=== PATIENT | male | born 1930 | race Caucasian/White ===

== ENCOUNTER 2018-01-22 16:46 | Inpatient (IN) | payer OTHER, MEDICARE ==
[2018-01-22] MEDS ORDERED: ACETAMINOPHEN TAB 325 MG TAB PO STA (16:53)
[2018-01-22] MEDS ORDERED: SODIUM CHLORIDE 0.9% 500 ML IV ONE ×2 (16:54→18:10)
--- NOTE | 2018-01-22 17:01 | ED ---
General Adult HPI - General Chief complaint: Weakness Stated complaint: NUMBNESS IN LEGS Time Seen by Provider: 01/22/18 16:59 Source: patient, family, RN notes reviewed, old records reviewed Mode of arrival: wheelchair Limitations: no limitations - History of Present Illness Initial comments: 87-year-old male presents for evaluation of generalized weakness. Patient states that throughout the day today he has become progressively more weak, states that he's had trouble falling onto his walker and weakness in both legs. Patient does report yesterday evening he had a cough and some mild dyspnea. This seems improved today. Denies chest pain. Denies abdominal pain. Denies nausea vomiting or diarrhea. Patient denies dysuria. He is found to have fever in triage and he complains of some subjective chills. - Related Data Home Medications Medication Instructions Recorded Confirmed Glipizide(Unknown) 2 tab PO BID 01/22/18 01/22/18 Insulin Aspart [Novolog Flexpen] See Protocol SQ ACHS 01/22/18 01/22/18 Insulin Glargine,Hum.rec.anlog 25 unit SQ HS 01/22/18 01/22/18 [Lantus Solostar] Latanoprost [Xalatan 0.005%] 1 drop BOTH EYES HS 01/22/18 01/22/18 Lutein 20 mg PO DAILY 01/22/18 01/22/18 Multivitamins, Thera [Multivitamin 1 tab PO DAILY 01/22/18 01/22/18 (formulary)] Ubidecarenone [Co Q-10] 100 mg PO DAILY 01/22/18 01/22/18 amLODIPine [Norvasc] 5 mg PO DAILY 01/22/18 01/22/18 Allergies Allergy/AdvReac Type Severity Reaction Status Date / Time No Known Allergies Allergy Verified 01/22/18 17:05 Review of Systems ROS Statement: Those systems with pertinent positive or pertinent negative responses have been documented in the HPI. ROS Other: All systems not noted in ROS Statement are negative. Past Medical History Past Medical History: Diabetes Mellitus, Hyperlipidemia, Hypertension History of Any Multi-Drug Resistant Organisms: None Reported Past Surgical History: Orthopedic Surgery Past Psychological History: No Psychological Hx Reported Smoking Status: Former smoker Past Alcohol Use History: Occasional Past Drug Use History: Unable to Obtain General Exam Limitations: no limitations General appearance: alert, in no apparent distress Head exam: Present: atraumatic, normocephalic Eye exam: Present: normal appearance, PERRL ENT exam: Present: mucous membranes dry Neck exam: Present: normal inspection. Absent: tenderness, meningismus Respiratory exam: Present: normal lung sounds bilaterally. Absent: respiratory distress, wheezes Cardiovascular Exam: Present: regular rate, normal rhythm GI/Abdominal exam: Present: soft. Absent: distended, tenderness, guarding Extremities exam: Present: normal inspection, normal capillary refill. Absent: pedal edema Neurological exam: Present: alert, oriented X3, CN II-XII intact, normal gait. Absent: motor sensory deficit Psychiatric exam: Present: normal affect, normal mood Skin exam: Present: warm, dry, intact. Absent: cyanosis, diaphoretic Course Vital Signs 01/22/18 01/22/18 01/22/18 16:49 17:00 17:18 Temperature 101.2 F H 100.0 F H Pulse Rate 103 H 108 H 103 H Respiratory 20 18 18 Rate Blood Pressure 96/54 106/55 96/55 O2 Sat by Pulse 95 93 L 93 L Oximetry 01/22/18 01/22/18 17:30 18:00 Temperature 99 F Pulse Rate 106 H 101 H Respiratory 16 18 Rate Blood Pressure 99/57 101/59 O2 Sat by Pulse 92 L 93 L Oximetry - Reevaluation(s) Reevaluation #1: 01/22/18 17:05 Case is discussed with Dr. Walsh , regarding EKG changes EKG Findings - EKG Comments: EKG Findings:: EKG: Obtained at 1702 shows sinus tachycardia, incomplete left bundle branch block, this is interpreted as acute NM, there is ST segment depression, however I do not feel this is an acute NM at this time. Rate of 111 , NE interval 184, QRS duration 116, QTC 485. Repeat EKG obtained at 1821, normal sinus rhythm, ST segment depression in V5 and V6, rate of 100, NE interval 204, QRS duration 114, QTC 492 Medical Decision Making - Medical Decision Making 87-year-old presenting for evaluation generalized weakness. Patient does report some dyspnea yesterday with mild cough. In triage patient has elevated heart rate and marginal blood pressure. Exam reveals normal strength throughout. Patient has significant EKG changes which are new compared to old. He denies any chest pain today or within the past week. He has no known history of CAD. Presentation is more consistent with infectious process. Chest x-rays obtained, does show patchy opacities consistent with an atypical pneumonia. White blood cell count is elevated at 16, hemoglobin 12.5, creatinine 2.0 with no known baseline. There is lactic acidosis of 4.5. Bilirubin is mildly elevated although patient has had his gallbladder removed remotely. Troponin significantly elevated at 3.3. Urinalysis is positive for leukocyte esterase and 38 white blood cell. Cultures of both the blood in the urine are pending. Patient is started on antibiotics to cover community acquired pneumonia. He is also given normal saline bolus in the emergency department. He started on heparin for EKG changes and elevated troponin after discussion with cardiology. He will be admitted to the ICU, Dr. Silva will accept this admission. Case is discussed with Dr. Cruz will accept admission. - Lab Data Result diagrams: 01/22/18 17:10 01/22/18 17:10 Lab Results 01/22/18 01/22/18 01/22/18 Range/Units 17:10 17:10 17:10 WBC 15.8 H (3.8-10.6) k/uL RBC 3.93 L (4.30-5.90) m/uL Hgb 12.5 L (13.0-17.5) gm/dL Hct 38.1 L (39.0-53.0) % MCV 96.8 (80.0-100.0) fL MCH 31.7 (25.0-35.0) pg MCHC 32.8 (31.0-37.0) g/dL RDW 12.7 (11.5-15.5) % Plt Count 176 (150-450) k/uL Neutrophils % 92 % Lymphocytes % 1 % Monocytes % 6 % Eosinophils % 1 % Basophils % 0 % Neutrophils # 14.5 H (1.3-7.7) k/uL Lymphocytes # 0.2 L (1.0-4.8) k/uL Monocytes # 0.9 (0-1.0) k/uL Eosinophils # 0.1 (0-0.7) k/uL Basophils # 0.0 (0-0.2) k/uL PT (9.0-12.0) sec INR (<1.2) APTT (22.0-30.0) sec Sodium 133 L (137-145) mmol/L Potassium 4.6 (3.5-5.1) mmol/L Chloride 102 (98-107) mmol/L Carbon Dioxide 16 L (22-30) mmol/L Anion Gap 15 mmol/L BUN 32 H (9-20) mg/dL Creatinine 2.00 H (0.66-1.25) mg/dL Est GFR (CKD-EPI)AfAm 34 (>60 ml/min/1.73 sqM) Est GFR (CKD-EPI)NonAf 29 (>60 ml/min/1.73 sqM) Glucose 331 H (74-99) mg/dL Plasma Lactic Acid [place] (0.7-2.0) mmol/L Calcium 9.4 (8.4-10.2) mg/dL Total Bilirubin 2.5 H (0.2-1.3) mg/dL AST 69 H (17-59) U/L ALT 69 (21-72) U/L Alkaline Phosphatase 75 (38-126) U/L Total Creatine Kinase 397 H (55-170) U/L CK-MB (CK-2) 12.0 H* (0.0-2.4) ng/mL CK-MB (CK-2) Rel Index 3.0 Troponin I 3.300 H* (0.000-0.034) ng/mL Total Protein 7.0 (6.3-8.2) g/dL Albumin 3.7 (3.5-5.0) g/dL Urine Color Urine Appearance (Clear) Urine pH (5.0-8.0) Ur Specific [place] (1.001-1.035) Urine Protein (Negative) Urine Glucose (UA) (Negative) Urine Ketones (Negative) Urine Blood (Negative) Urine Nitrite (Negative) Urine Bilirubin (Negative) Urine Urobilinogen (<2.0) mg/dL Ur Leukocyte Esterase (Negative) Urine RBC (0-5) /hpf Urine WBC (0-5) /hpf Ur Squamous Epith Cells (0-4) /hpf Urine Bacteria (None) /hpf Hyaline Casts (0-2) /lpf Urine Mucus (None) /hpf 01/22/18 01/22/18 01/22/18 Range/Units 17:10 17:10 18:00 WBC (3.8-10.6) k/uL RBC (4.30-5.90) m/uL Hgb (13.0-17.5) gm/dL Hct (39.0-53.0) % MCV (80.0-100.0) fL MCH (25.0-35.0) pg MCHC (31.0-37.0) g/dL RDW (11.5-15.5) % Plt Count (150-450) k/uL Neutrophils % % Lymphocytes % % Monocytes % % Eosinophils % % Basophils % % Neutrophils # (1.3-7.7) k/uL Lymphocytes # (1.0-4.8) k/uL Monocytes # (0-1.0) k/uL Eosinophils # (0-0.7) k/uL Basophils # (0-0.2) k/uL PT 11.0 (9.0-12.0) sec INR 1.1 (<1.2) APTT 24.6 (22.0-30.0) sec Sodium (137-145) mmol/L Potassium (3.5-5.1) mmol/L Chloride (98-107) mmol/L Carbon Dioxide (22-30) mmol/L Anion Gap mmol/L BUN (9-20) mg/dL Creatinine (0.66-1.25) mg/dL Est GFR (CKD-EPI)AfAm (>60 ml/min/1.73 sqM) Est GFR (CKD-EPI)NonAf (>60 ml/min/1.73 sqM) Glucose (74-99) mg/dL Plasma Lactic Acid [place] 4.5 H* (0.7-2.0) mmol/L Calcium (8.4-10.2) mg/dL Total Bilirubin (0.2-1.3) mg/dL AST (17-59) U/L ALT (21-72) U/L Alkaline Phosphatase (38-126) U/L Total Creatine Kinase (55-170) U/L CK-MB (CK-2) (0.0-2.4) ng/mL CK-MB (CK-2) Rel Index Troponin I (0.000-0.034) ng/mL Total Protein (6.3-8.2) g/dL Albumin (3.5-5.0) g/dL Urine Color [place] Urine Appearance Turbid (Clear) Urine pH 5.0 (5.0-8.0) Ur Specific [place] 1.020 (1.001-1.035) Urine Protein 2+ H (Negative) Urine Glucose (UA) 3+ H (Negative) Urine Ketones Trace H (Negative) Urine Blood Negative (Negative) Urine Nitrite Negative (Negative) Urine Bilirubin 1+ H (Negative) Urine Urobilinogen 4.0 (<2.0) mg/dL Ur Leukocyte Esterase Large H (Negative) Urine RBC 5 (0-5) /hpf Urine WBC 38 H (0-5) /hpf Ur Squamous Epith Cells 2 (0-4) /hpf Urine Bacteria Few H (None) /hpf Hyaline Casts 28 H (0-2) /lpf Urine Mucus Rare H (None) /hpf Critical Care Time Critical Care Time: Yes Total Critical Care Time: 35 Disposition Clinical Impression: Community acquired pneumonia, Sepsis, NSTEMI (non-ST elevated myocardial infarction) Disposition: ADMITTED IP TO THIS [facility] Condition: Serious Is patient prescribed a controlled substance at d/c from ED?: No Referrals: Jimmy Collins DO [Primary Care Provider] - 1-2 days Decision to Admit Reason: Admit from EC Decision Date: 01/22/18 Decision Time: 19:04
[2018-01-22 17:27] LABS: Basophils % (A) 0 %; Eosinophils # (A) 0.1 k/uL (0-0.7); Eosinophils % (A) 1 %; HCT 38.1 % (39.0-53.0); HGB 12.5 gm/dL (13.0-17.5); Lymphocytes # (A) 0.2 k/uL (1.0-4.8); Lymphocytes % (A) 1 %; MCH 31.7 pg (25.0-35.0); MCHC 32.8 g/dL (31.0-37.0); MCV 96.8 fL (80.0-100.0); Mean Platelet Volume 7.8; Monocytes # (A) 0.9 k/uL (0-1.0); Monocytes % (A) 6 %; Neutrophils # (A) 14.5 k/uL (1.3-7.7); Neutrophils % (A) 92 %; Platelet Count 176 k/uL (150-450); RBC 3.93 m/uL (4.30-5.90); RDW 12.7 % (11.5-15.5); WBC 15.8 k/uL (3.8-10.6)
[2018-01-22] MEDS ORDERED: cefTRIAXone IN SWFI 1,000 MG/10 ML SYRINGE IVP STA (17:35)
[2018-01-22 17:41] LABS: INR 1.1 (<1.2); Partial Thromboplastin Time 24.6 sec (22.0-30.0)
[2018-01-22 17:48] LABS: Albumin 3.7 g/dL (3.5-5.0); Calcium 9.4 mg/dL (8.4-10.2); Potassium 4.6 mmol/L (3.5-5.1); Total Bilirubin 2.5 mg/dL (0.2-1.3)
[2018-01-22] MEDS ORDERED: SODIUM CHLORIDE 0.9% 1,000 ML IV ONE ×2 (17:52→22:10)
[2018-01-22 18:09] LABS: Troponin I 3.3 ng/mL (0.000-0.034)
--- NOTE | 2018-01-22 18:09 | XR ---
EXAMINATION TYPE: XR chest 2V DATE OF EXAM: 01/22/2018 COMPARISON: None HISTORY: 87-year-old male with fever TECHNIQUE: AP and lateral views FINDINGS: Heart upper limits of normal in size. Diffuse interstitial densities with a bibasilar opacities. Ante rior eventration of the left hemidiaphragm. No pleural effusion. IMPRESSION: Interstitial and patchy bibasilar opacities. Correlate for possible etiologies including bronchitis, interstitial pneumonitis, and atypical pneumonias.
[2018-01-22] MEDS ORDERED: ASPIRIN 325 MG TAB PO STA (18:11)
[2018-01-22] MEDS ORDERED: AZITHROMYCIN 500 MG in SODIUM CHLORIDE 0.9% 250 ML IVPB STA (18:16)
[2018-01-22 18:20] LABS: Appearance,Urine Turbid (Clear); Bacteria,Urine Few /hpf; Bilirubin,Urine 1+ (Negative); Blood,Urine Negative (Negative); Color,Urine Orange; Glucose,Urine (UA) 3+ (Negative); Hyaline Casts,Urine 28 /lpf (0-2); Ketones,Urine Trace (Negative); Leukocyte Esterase,Urine Large (Negative); Mucus,Urine Rare /hpf; Nitrite,Urine Negative (Negative); Protein,Urine 2+ (Negative); RBC,Urine 5 /hpf (0-5); Squamous Epithelial Cell,Urine 2 /hpf (0-4); WBC,Urine 38 /hpf (0-5)
[2018-01-22] MEDS: SODIUM CHLORIDE 0.9% 1,000 ML IV SCH (18:42)
[2018-01-22] MEDS ORDERED: HEPARIN SODIUM,PORCINE 5,000 UNIT/ML 1 ML VIAL IV PRN (18:50)
[2018-01-22] MEDS ORDERED: NALOXONE 0.4 MG/ML 1 ML VIAL IV PRN (18:55)
[2018-01-22] MEDS ORDERED: VANCOMYCIN IV PER PHARMACY 1 EACH MISC MISCELLANE PRN (18:57)
[2018-01-22] MEDS: HEPARIN SOD,PORK IN 0.45% NACL 25,000 UNIT in 0.45% NACL 1 500ML.BAG IV SCH (19:24)
[2018-01-22] MEDS ORDERED: VANCOMYCIN 1,500 MG in SODIUM CHLORIDE 0.9% 250 ML IVPB ONE (19:45)
[2018-01-22] MEDS: IPRATROPIUM-ALBUTEROL 3 ML NEB INHALATION SCH (20:29)
[2018-01-22 20:56] LABS: Glucose,Whole Blood 336 mg/dL (75-99)
[2018-01-22] MEDS: INSULIN DETEMIR 100 UNIT/ML 10 ML VIAL SQ SCH (21:27)
[2018-01-22] MEDS ORDERED: FUROSEMIDE 10 MG/ML 4 ML VIAL IV STA (23:53)
[2018-01-23 00:50] LABS: Creatine Kinase MB 13.8 ng/mL (0.0-2.4); Troponin I 5.81 ng/mL (0.000-0.034)
[2018-01-23] MEDS ORDERED: NOREPINEPHRINE 4 MG in SODIUM CHLORIDE 0.9% 250 ML IV SCH (01:00)
[2018-01-23 05:05] LABS: INR 1.3 (<1.2); Partial Thromboplastin Time 35.8 sec (22.0-30.0); Prothrombin Time 12.4 sec (9.0-12.0)
[2018-01-23 05:08] LABS: Albumin 2.8 g/dL (3.5-5.0); Calcium 8.3 mg/dL (8.4-10.2); Phosphorus 3.2 mg/dL (2.5-4.5); Potassium 4.4 mmol/L (3.5-5.1); Total Bilirubin 1.7 mg/dL (0.2-1.3); Total Protein 5.7 g/dL (6.3-8.2)
[2018-01-23 05:13] LABS: Basophils % (A) 0 %; Eosinophils # (A) 0.1 k/uL (0-0.7); Eosinophils % (A) 1 %; HCT 37.6 % (39.0-53.0); HGB 12.2 gm/dL (13.0-17.5); Lymphocytes # (A) 0.8 k/uL (1.0-4.8); Lymphocytes % (A) 7 %; MCH 32.2 pg (25.0-35.0); MCHC 32.5 g/dL (31.0-37.0); MCV 99.1 fL (80.0-100.0); Mean Platelet Volume 8.1; Monocytes # (A) 0.6 k/uL (0-1.0); Monocytes % (A) 5 %; Neutrophils # (A) 9.6 k/uL (1.3-7.7); Neutrophils % (A) 86 %; Platelet Count 123 k/uL (150-450); RBC 3.79 m/uL (4.30-5.90); RDW 12.7 % (11.5-15.5); WBC 11.2 k/uL (3.8-10.6)
[2018-01-23 05:52] LABS: Creatine Kinase MB 21.3 ng/mL (0.0-2.4); Troponin I 9.64 ng/mL (0.000-0.034)
[2018-01-23] MEDS: SODIUM CHLORIDE 0.9% 1,000 ML IV SCH ×2 (07:00→16:06)
[2018-01-23 07:05] LABS: Glucose,Whole Blood 212 mg/dL (75-99)
[2018-01-23] MEDS: INSULIN ASPART 100 UNIT/ML 1 ML 10 ML VIAL SQ SCH ×4 (07:08→21:07)
--- NOTE | 2018-01-23 07:20 | XR ---
EXAMINATION TYPE: XR chest 1V DATE OF EXAM: 01/23/2018 COMPARISON: 01/22/2018 HISTORY: 87 year-old male shortness of breath TECHNIQUE: Single frontal view of the chest is obtained. FINDINGS: Heart borderline enlarged. Asymmetric elevation of the left hemidiaphragm remains. Worsening perihila r and diffuse interstitial opacities. Slight worsening patchy left basilar opacity. Possible trace le ft effusion. IMPRESSION: 1. Borderline heart size. Worsening interstitial and perihilar opacities. Given the change, consider CHF with early interstitial edema. 2. Slight worsening patchy left basilar atelectasis and/or infiltrate. Possible trace left effusion n ow.
[2018-01-23] MEDS: IPRATROPIUM-ALBUTEROL 3 ML NEB INHALATION SCH ×4 (09:05→20:32)
[2018-01-23] MEDS: AZITHROMYCIN 500 MG in SODIUM CHLORIDE 0.9% 250 ML IVPB SCH (09:12)
[2018-01-23] MEDS: cefTRIAXone IN SWFI 1,000 MG/10 ML SYRINGE IVP SCH (09:13)
--- NOTE | 2018-01-23 10:40 | CONS ---
CONSULTATION Mr. Clarke is an 87-year-old gentleman who is seen for cardiac evaluation. This patient's medical records reviewed. History obtained from the patient as well as ICU nurse. This patient came to the hospital with a complaint of generalized weakness. Patient was feeling fairly well, but yesterday he had progressively weak. He was having trouble getting in and out of the chair and the car. The patient was weak in his both legs. The patient had some mild cough. When the EMS arrived the patient had complained of some chills. He did not complain of any chest pain. This patient has a history of diabetes. There is no prior history of myocardial infarction and he has a history of hypertension. PAST MEDICAL HISTORY: Includes a history of orthopedic surgeries, hypertension, diabetes, hyperlipidemia. SOCIAL HISTORY: Patient is a former smoker. In the emergency room, this patient had a temperature of 101.2. Blood pressure was 96/54 mmHg, respiratory rate was 20, oxygen saturation was 92%. Since then the patient had a low-grade temperature in the intensive care unit. The patient required Levophed over the night. At present the patient is off the Levophed. PHYSICAL EXAMINATION: Blood pressure at present is 105/53 mmHg, heart rate is 90 per minute. HEENT examination is negative. NECK: Supple. Jugular venous pressure is not elevated. Both the carotid pulses are felt. There is no bruit chest is symmetrical heart the PMI is not felt. First and second heart sounds are normal. Lungs are clinically clear to auscultation and percussion. ABDOMEN: Soft. 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 The patient has an ulcer on the right toe and there is infection. There is evidence of swelling in the right foot. EKG shows normal sinus rhythm with intraventricular conduction delay. There is a minimal ST-segment elevation in the lead [address]-segment depression is noted in 1 aVL and V3 to V6. LABORATORY DATA: [place] reveal [place] [address], [place] [address]. Creatinine is 2.0 with a GFR of 30. Initial troponin was 3.3. Subsequent troponin is 5.8, and 9.6. The patient's blood preliminaries blood culture shows gram-positive cocci. FINAL IMPRESSION: 1. This patient is primarily admitted with generalized weakness. Patient was hypotensive and impending shock in the emergency room and the preliminary blood cultures are positive for gram-positive cocci. The patient did not complain of any chest pain. The patient's primary picture appears to be probably sepsis and hypotension. 2. Patient has elevated troponin which could be secondary to and has a diffuse ST- segment depression with intraventricular conduction delay. This is most likely suggestive of type 2 myocardial injury due to supply and demand mismatch. The patient does have a diffuse ST-segment depression. We will recommend to do an echocardiogram to assess the left ventricular systolic function. We will continue the patient on heparin, baby aspirin and Lipitor 40 mg daily. Patient's overall prognosis is guarded. This was discussed with the patient's son the patient. MMODL / IJN: [id number] /
[2018-01-23] MEDS: ATORVASTATIN 40 MG TAB PO SCH (11:52)
[2018-01-23] MEDS: ASPIRIN 81 MG PO SCH (11:52)
[2018-01-23 11:55] LABS: Glucose,Whole Blood 199 mg/dL (75-99)
--- NOTE | 2018-01-23 13:38 | P.CNPUL ---
History of Present Illness Consult date: 01/23/18 Reason for consult: other (Possible sepsis) Chief complaint: Weakness History of present illness: This is an 87-year-old white male with history of diabetes, hypertension, hyperlipidemia, no documented history of underlying coronary artery disease. Patient presented to the ER last night with mostly complaints of being weak times one day duration. Over the last 24 hours prior to admission, the patient has been noticing generalized weakness, some shortness of breath, minimal cough , had no chest pain, no palpitations, no diaphoresis, but mostly felt generally weak. Patient was evaluated in the ER, his cardiac panel was abnormal with elevated troponin, his EKG showed a left bundle branch block pattern which is a new, his chest x-ray showed interstitial edema, underlying infiltrate is not entirely ruled out, renal profile was also noted to be abnormal suggestive of acute kidney injury. Patient was admitted with the impression of sepsis, and possibly septic shock since the patient was given fluid boluses initially, blood pressure remained low, and he required few hours of levo fed which has been discontinued early this morning in the ICU. Follow-up chest x-ray showed slight worsening in his interstitial edema. Again the possibility of underlying pneumonia is not entirely ruled out. His urinalysis was suggestive of possible urinary tract infection although the patient had no symptoms of dysuria frequency or urgency. Patient has a chronic ulcer which is rather deep at the lateral aspect of his big toe, being treated on outpatient basis by his primary care physician. Patient was empirically placed on antibiotics, including vancomycin, Rocephin and Zithromax. Shortly after he was admitted, we were informed that his blood cultures are positive for gram-positive cocci in clusters. Hence vancomycin will be continued. Of course the sources of his infection could be his right foot, could also be related to urinary tract infection or underlying pneumonia which I believe at this point is the least likely. Considering his elevated troponins, and considering his abnormal renal functioning, patient was placed on heparin, he will not be able to have cardiac catheterization, and his non-ST elevation myocardial infarction will be managed medically. Seen by cardiology, recommended echocardiography, heparin, baby aspirin, Lipitor, and monitoring in the ICU for now. Review of Systems 14 point review of systems were obtained, patient's only complaints were mostly complaints of weakness, slight dyspnea on exertion, minimal cough, no dysuria and no frequency no urgency. Has been complaining of a chronic ulcer at the base and lateral aspect of his right big toe. 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 Past Medical History Past Medical History: Diabetes Mellitus, Hyperlipidemia, Hypertension History of Any Multi-Drug Resistant Organisms: None Reported Past Surgical History: Orthopedic Surgery Additional Past Surgical History / Comment(s): Left below knee amputation Past Psychological History: No Psychological Hx Reported Smoking Status: Former smoker Past Alcohol Use History: Occasional Past Drug Use History: Unable to Obtain Medications and Allergies Home Medications Medication Instructions Recorded Confirmed Type Glipizide(Unknown) 2 tab PO BID 01/22/18 01/22/18 History Insulin Aspart [Novolog Flexpen] See Protocol SQ ACHS 01/22/18 01/22/18 History Insulin Glargine,Hum.rec.anlog 25 unit SQ HS 01/22/18 01/22/18 History [Lantus Solostar] Latanoprost [Xalatan 0.005%] 1 drop BOTH EYES HS 01/22/18 01/22/18 History Lutein 20 mg PO DAILY 01/22/18 01/22/18 History Multivitamins, Thera [Multivitamin 1 tab PO DAILY 01/22/18 01/22/18 History (formulary)] Ubidecarenone [Co Q-10] 100 mg PO DAILY 01/22/18 01/22/18 History amLODIPine [Norvasc] 5 mg PO DAILY 01/22/18 01/22/18 History Allergies Allergy/AdvReac Type Severity Reaction Status Date / Time No Known Allergies Allergy Verified 01/22/18 17:05 Physical Exam Vitals: Vital Signs Temp Pulse Resp BP Pulse Ox 01/23/18 12:00 99.2 F 101 H 22 103/53 91 L 01/23/18 11:00 95 20 107/88 92 L 01/23/18 10:30 97 22 103/52 90 L 01/23/18 10:00 101 H 20 101/58 92 L 01/23/18 09:30 94 20 106/51 92 L 01/23/18 09:18 92 01/23/18 09:06 92 01/23/18 09:00 92 24 105/53 91 L 01/23/18 08:30 89 22 107/52 92 L 01/23/18 08:00 99.1 F 94 22 98/48 91 L 01/23/18 07:30 95 24 107/56 91 L 01/23/18 07:00 86 29 H 107/55 93 L 01/23/18 06:30 85 27 H 108/56 94 L 01/23/18 06:00 85 29 H 109/53 94 L 01/23/18 05:30 85 29 H 103/52 93 L 01/23/18 05:00 86 36 H 117/59 93 L 01/23/18 04:30 90 29 H 108/53 92 L 01/23/18 04:00 98.9 F 84 25 H 104/54 95 01/23/18 03:30 83 24 109/56 96 01/23/18 03:00 83 26 H 110/56 95 01/23/18 02:30 93 23 83/36 94 L 01/23/18 02:00 89 23 85/45 95 01/23/18 01:30 91 18 96/47 96 01/23/18 01:00 91 19 80/30 94 L 01/23/18 00:30 84 24 93/54 94 L 01/23/18 00:00 98.6 F 89 19 104/49 97 01/22/18 23:51 83 20 94/60 97 01/22/18 23:30 89 22 94/60 94 L 01/22/18 23:00 82 22 97/49 96 01/22/18 22:30 82 26 H 84/41 94 L 01/22/18 22:00 85 25 H 91/52 95 01/22/18 21:30 89 28 H 85/49 92 L 01/22/18 21:00 89 39 H 82/51 87 L 01/22/18 20:37 90 16 01/22/18 20:30 93 84/50 83 L 01/22/18 20:29 92 16 01/22/18 20:24 95 01/22/18 19:31 98.4 F 93 18 97/67 90 L 01/22/18 18:00 99 F 101 H 18 101/59 93 L 01/22/18 17:30 106 H 16 99/57 92 L 01/22/18 17:18 103 H 18 96/55 93 L 01/22/18 17:00 100.0 F H 108 H 18 106/55 93 L 01/22/18 16:49 101.2 F H 103 H 20 96/54 95 Intake and Output 01/22/18 01/23/18 01/23/18 22:59 06:59 14:59 Intake Total 200 1960.644 940 Output Total 25 545 213 Balance 175 1415.644 727 Intake: IV 75 600 700 Azithromycin 500 mg In 250 Sodium Chloride 0.9% 250 ml @ 125 mls/hr IVPB DAILY [facility] Rx#:[id number] Sodium Chloride 0.9% 1, 75 600 450 000 ml @ 75 mls/hr IV . [id number] [facility] Rx#:[id number] Intake, IV Titration 125 1360.644 Amount Azithromycin 500 mg In 1000 Sodium Chloride 0.9% 250 ml @ 125 mls/hr IVPB ONCE [facility] Rx#:[id number] Heparin Sod,Pork in 0.45% 200.081 NaCl 25,000 unit In 0.45 % NaCl 1 500ml.bag @ 10.5 UNITS/KG/HR 19.81 mls/hr IV .Q24H [facility] Rx#: [id number] Norepinephrine 4 mg In 35.563 Sodium Chloride 0.9% 250 ml @ Titrate IV .Q0M [facility] Rx#:[id number] Vancomycin 1,500 mg In 125 125 Sodium Chloride 0.9% 250 ml @ 125 mls/hr IVPB Q24H [facility] Rx#:[id number] Oral 240 Output: Urine 25 545 213 Other: Voiding Method Indwelling Catheter Indwelling Catheter Weight 89 kg 92.7 kg Limitations: no limitations General appearance: alert, in no apparent distress very pleasant, basically asymptomatic during my evaluation. Head exam: atraumatic, normocephalic Eye exam: normal appearance, PERRLA, EOMI, no icterus. ENT exam: mucous membranes dry Neck exam: normal inspection. Absent: tenderness, meningismus no neck masses, no JVD. Respiratory exam: normal lung sounds bilaterally. Crackles, no rhonchi, no wheezes. Cardiovascular Exam: regular rate, normal rhythm no S3 gallop, no murmur was appreciated. GI/Abdominal exam: soft. Nontender, no megaly, no rebound, no guarding. Extremities exam:normal inspection, normal capillary refill. Absent: pedal edema there is evidence of left below knee amputation. There is also evidence of deep ulcer at the base of the right big toe medially. Some discharge noted/ cirrhosis nature. Neurological exam: Alert, oriented 3, no gross focal neurologic deficit. Psychiatric exam: normal affect, normal mood, normal mental status examination. Skin exam: Present: 2.5 cm ulcer at the base of the right big toe medially. With serous drainage noted. Results - Laboratory Findings CBC and BMP: 01/23/18 04:38 01/23/18 04:38 PT/INR, D-dimer PT 12.4 sec (9.0-12.0) H 01/23/18 04:38 INR 1.3 (<1.2) H 01/23/18 04:38 Abnormal lab findings: Abnormal Labs 01/22/18 01/22/18 01/22/18 17:10 17:10 17:10 WBC 15.8 H RBC 3.93 L Hgb 12.5 L Hct 38.1 L Plt Count Neutrophils # 14.5 H Lymphocytes # 0.2 L PT INR APTT Sodium 133 L Chloride Carbon Dioxide 16 L BUN 32 H Creatinine 2.00 H Glucose 331 H POC Glucose (mg/dL) Plasma Lactic Acid Franklin Calcium Total Bilirubin 2.5 H AST 69 H Total Creatine Kinase 397 H CK-MB (CK-2) 12.0 H* Troponin I 3.300 H* Total Protein Albumin Urine Protein Urine Glucose (UA) Urine Ketones Urine Bilirubin Ur Leukocyte Esterase Urine WBC Urine Bacteria Hyaline Casts Urine Mucus 01/22/18 01/22/18 01/22/18 17:10 18:00 20:25 WBC RBC Hgb Hct Plt Count Neutrophils # Lymphocytes # PT INR APTT Sodium Chloride Carbon Dioxide BUN Creatinine Glucose POC Glucose (mg/dL) 336 H Plasma Lactic Acid Franklin 4.5 H* Calcium Total Bilirubin AST Total Creatine Kinase CK-MB (CK-2) Troponin I Total Protein Albumin Urine Protein 2+ H Urine Glucose (UA) 3+ H Urine Ketones Trace H Urine Bilirubin 1+ H Ur Leukocyte Esterase Large H Urine WBC 38 H Urine Bacteria Few H Hyaline Casts 28 H Urine Mucus Rare H 01/22/18 01/23/18 01/23/18 23:35 04:38 04:38 WBC 11.2 H RBC 3.79 L Hgb 12.2 L Hct 37.6 L Plt Count 123 L Neutrophils # 9.6 H Lymphocytes # 0.8 L PT 12.4 H INR 1.3 H APTT 35.8 H Sodium Chloride Carbon Dioxide BUN Creatinine Glucose POC Glucose (mg/dL) Plasma Lactic Acid Franklin Calcium Total Bilirubin AST Total Creatine Kinase 376 H CK-MB (CK-2) 13.8 H* Troponin I 5.810 H* Total Protein Albumin Urine Protein Urine Glucose (UA) Urine Ketones Urine Bilirubin Ur Leukocyte Esterase Urine WBC Urine Bacteria Hyaline Casts Urine Mucus 01/23/18 01/23/18 01/23/18 04:38 04:38 07:03 WBC RBC Hgb Hct Plt Count Neutrophils # Lymphocytes # PT INR APTT Sodium 135 L Chloride 108 H Carbon Dioxide 16 L BUN 34 H Creatinine 1.95 H Glucose 230 H POC Glucose (mg/dL) 212 H Plasma Lactic Acid Franklin Calcium 8.3 L Total Bilirubin 1.7 H AST 76 H Total Creatine Kinase 428 H CK-MB (CK-2) 21.3 H* Troponin I 9.640 H* Total Protein 5.7 L Albumin 2.8 L Urine Protein Urine Glucose (UA) Urine Ketones Urine Bilirubin Ur Leukocyte Esterase Urine WBC Urine Bacteria Hyaline Casts Urine Mucus 01/23/18 01/23/18 01/23/18 11:53 11:59 11:59 WBC RBC Hgb Hct Plt Count Neutrophils # Lymphocytes # PT INR APTT 42.8 H Sodium Chloride Carbon Dioxide BUN Creatinine Glucose POC Glucose (mg/dL) 199 H Plasma Lactic Acid Franklin Calcium Total Bilirubin AST Total Creatine Kinase CK-MB (CK-2) Troponin I 9.570 H* Total Protein Albumin Urine Protein Urine Glucose (UA) Urine Ketones Urine Bilirubin Ur Leukocyte Esterase Urine WBC Urine Bacteria Hyaline Casts Urine Mucus - Diagnostic Findings Chest x-ray: image reviewed (Chest x-ray is suggestive of interstitial edema, underlying pneumonia is not entirely ruled out but felt to be less likely.) Assessment and Plan Assessment: Impression: 1 acute sepsis and septic shock with bacteremia and positive blood cultures for gram-positive cocci in clusters. 2 suspect primary source of his sepsis is from his ulcer at the base of his right big toe, this may have to be further evaluated by infectious disease on consultation. However the possibility of sepsis from underlying pneumonia is not entirely ruled out, sepsis from urinary tract infection is also not entirely ruled out but felt to be less likely. 3 asymptomatic urinary tract infection 4 diabetic foot ulcer/right foot/big toe 5 possible community-acquired pneumonia 6 acute non-ST elevation myocardial infarction 7 acute kidney injury secondary to hypotension secondary to sepsis and septic shock. 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 History of osteoarthritis. Recommendation: Continue treatment as per sepsis and septic shock protocol, continue heparin for his acute non-ST elevation myocardial infarction, awaiting cultures from the foot ulcer also awaiting cultures from the sputum and urine. We'll continue to follow, patient needs to be monitored closely in the ICU. We' ll try diuresis once the blood pressure stabilizes fully. Critical care time is 45 minutes discussed the patient's condition with him, family members, and cardiology. Time with Patient: Greater than 30
[2018-01-23] MEDS: HEPARIN SOD,PORK IN 0.45% NACL 25,000 UNIT in 0.45% NACL 1 500ML.BAG IV SCH (16:04)
[2018-01-23 17:07] LABS: Glucose,Whole Blood 165 mg/dL (75-99)
--- NOTE | 2018-01-23 17:54 | XR ---
EXAMINATION TYPE: XR foot complete RT DATE OF EXAM: 01/23/2018 COMPARISON: NONE HISTORY: Foot pain along that the great toe TECHNIQUE: 3 views FINDINGS: There is some erosion of the medial base of the distal phalanx of the big toe. There is irene rowing and mild spurring at the first MP joint. There is some mild cystic change in the first metatar manpreet head. IMPRESSION: Changes at the first MP joint could relate to septic arthritis. No fracture.
[2018-01-23] MEDS ORDERED: VANCOMYCIN 1,500 MG in SODIUM CHLORIDE 0.9% 250 ML IVPB SCH (21:00)
--- NOTE | 2018-01-23 21:01 | P.HPIM ---
History of Present Illness H&P Date: 01/23/18 Chief Complaint: Weak and tired Presenting complaint: Weak and tired History of present complaint: This is a very pleasant 87-year-old patient who follows with Dr. Collins. Chronic stable medical conditions included diabetes, hyperlipidemia, hypertension. Patient presented with 2 days of fairly feeling weak and tired rundown. At her baseline uses a walker. Patient has a left below-knee amputation. Patient also had a right foot wound for a few days. Some pain and drainage. Patient did experience chills at home. Decreased appetite. No diarrhea. No respiratory symptoms. Patient is found to be tachycardic and febrile in the ER. Picture more compatible with sepsis picture. Started on antibiotics. Patient troponin is also up to greater than 9. With some EKG changes. The patient admitted to the ICU. Blood pressure was running low. Was put on Levothroid drip. IV fluids. Review of systems: GEN.: Weak and tired, fever or chills EYES: None HEENT: Decreased hearing NECK: None RESPIRATORY: None CARDIOVASCULAR: No chest pain GASTROINTESTINAL: None GENITOURINARY: None MUSCULOSKELETAL: Some benefit in the joints LYMPHATICS: None HEMATOLOGICAL: None PSYCHIATRY: None NEUROLOGICAL: None Social history: Retired, lives with his . Nonsmoker, no significant alcohol. Family history: Reviewed, noncontributory to presentation Physical examination: VITAL SIGNS: 101.2, 108, 20, 96/54, 95% room air GENERAL: Average built, laying in bed tired appearing. EYES: Pupils equal. Conjunctiva normal. HEENT: External appearance of nose and ears normal, oral cavity with dry. NECK: JVD not raised; masses not palpable. HEART: First and second heart sounds are normal; no edema. LUNGS: Respiratory rate normal; decreased breath sounds. ABDOMEN: Soft, nontender, liver spleen not palpable, no masses palpable. LYMPHATICS: No lymph nodes palpable in the axilla and neck. PSYCH: Alert and oriented x3; mood and affect normal. NEUROLOGICAL: Cranial nerves grossly intact; no facial asymmetry, power and sensation grossly intact MUSCULOSKELETAL: Left below-knee application, wound on the right foot big toe Investigations: In context of this assessment and plan White count 15.8, hemoglobin 12.5, potassium 4.6, BUN 32, creatinine 2 Glucose 331 lactic acid 4.5 troponin I 3.3/5.8/9.6 EKG-tracing interpreted-poor RV progression in anterior leads with ST segment depression in lead 1 and aVL and V4 to V6 Chest x-ray-fib interpreted shows possible basal infiltrates Assessment: -Severe sepsis with septic shock on presentation, the source could be either pneumonia or from infected big toe on the right foot. Patient is requiring IV fluids and levo fed. Patient admitted to the ICU. Close hemodynamic monitoring -Bilateral basal pneumonia suspected gram-negative organism -Right foot first toe infection could be septic arthritis -Possible acute non-ST elevation silent acute myocardial infarction with a rising troponin and EKG changes. Type II LA is also possibility. 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 This point do not have patient's baseline renal function. Will check a renal ultrasound a -Acute UTI -Acute lactic acidosis from sepsis -Acute metabolic acidosis from renal failure and sepsis Plan: Consultation was made to cardiology, critical care, infectious disease. We will do a renal ultrasound. add oral bicarbonate. Patient is on DuoNeb, ceftriaxone and azithromycin. Also Accu-Cheks will be followed with sliding scale insulin. Given renal failure will switch the patient to daptomycin. Follow up lites closely. Patient also to get a 2-D echocardiogram. Patient on aspirin and IV heparin Prognosis guarded care was discussed with the patient.. Past Medical History Past Medical History: Diabetes Mellitus, Hyperlipidemia, Hypertension History of Any Multi-Drug Resistant Organisms: None Reported Past Surgical History: Orthopedic Surgery Additional Past Surgical History / Comment(s): Left below knee amputation Past Psychological History: No Psychological Hx Reported Smoking Status: Former smoker Past Alcohol Use History: Occasional Past Drug Use History: Unable to Obtain Medications and Allergies Home Medications Medication Instructions Recorded Confirmed Type Glipizide(Unknown) 2 tab PO BID 01/22/18 01/22/18 History Insulin Aspart [Novolog Flexpen] See Protocol SQ ACHS 01/22/18 01/22/18 History Insulin Glargine,Hum.rec.anlog 25 unit SQ HS 01/22/18 01/22/18 History [Lantus Solostar] Latanoprost [Xalatan 0.005%] 1 drop BOTH EYES HS 01/22/18 01/22/18 History Lutein 20 mg PO DAILY 01/22/18 01/22/18 History Multivitamins, Thera [Multivitamin 1 tab PO DAILY 01/22/18 01/22/18 History (formulary)] Ubidecarenone [Co Q-10] 100 mg PO DAILY 01/22/18 01/22/18 History amLODIPine [Norvasc] 5 mg PO DAILY 01/22/18 01/22/18 History Allergies Allergy/AdvReac Type Severity Reaction Status Date / Time No Known Allergies Allergy Verified 01/22/18 17:05 Results CBC & Chem 7: 01/23/18 04:38 01/23/18 04:38 Labs: Abnormal Lab Results - Last 24 Hours (Table) 01/22/18 01/22/18 01/22/18 Range/Units 17:10 17:10 17:10 WBC 15.8 H (3.8-10.6) k/uL RBC 3.93 L (4.30-5.90) m/uL Hgb 12.5 L (13.0-17.5) gm/dL Hct 38.1 L (39.0-53.0) % Plt Count (150-450) k/uL Neutrophils # 14.5 H (1.3-7.7) k/uL Lymphocytes # 0.2 L (1.0-4.8) k/uL PT (9.0-12.0) sec INR (<1.2) APTT (22.0-30.0) sec Sodium 133 L (137-145) mmol/L Chloride (98-107) mmol/L Carbon Dioxide 16 L (22-30) mmol/L BUN 32 H (9-20) mg/dL Creatinine 2.00 H (0.66-1.25) mg/dL Glucose 331 H (74-99) mg/dL POC Glucose (mg/dL) (75-99) mg/dL Plasma Lactic Acid Franklin (0.7-2.0) mmol/L Calcium (8.4-10.2) mg/dL Total Bilirubin 2.5 H (0.2-1.3) mg/dL AST 69 H (17-59) U/L Total Creatine Kinase 397 H (55-170) U/L CK-MB (CK-2) 12.0 H* (0.0-2.4) ng/mL Troponin I 3.300 H* (0.000-0.034) ng/mL Total Protein (6.3-8.2) g/dL Albumin (3.5-5.0) g/dL Urine Protein (Negative) Urine Glucose (UA) (Negative) Urine Ketones (Negative) Urine Bilirubin (Negative) Ur Leukocyte Esterase (Negative) Urine WBC (0-5) /hpf Urine Bacteria (None) /hpf Hyaline Casts (0-2) /lpf Urine Mucus (None) /hpf 01/22/18 01/22/18 01/22/18 Range/Units 17:10 18:00 20:25 WBC (3.8-10.6) k/uL RBC (4.30-5.90) m/uL Hgb (13.0-17.5) gm/dL Hct (39.0-53.0) % Plt Count (150-450) k/uL Neutrophils # (1.3-7.7) k/uL Lymphocytes # (1.0-4.8) k/uL PT (9.0-12.0) sec INR (<1.2) APTT (22.0-30.0) sec Sodium (137-145) mmol/L Chloride (98-107) mmol/L Carbon Dioxide (22-30) mmol/L BUN (9-20) mg/dL Creatinine (0.66-1.25) mg/dL Glucose (74-99) mg/dL POC Glucose (mg/dL) 336 H (75-99) mg/dL Plasma Lactic Acid Franklin 4.5 H* (0.7-2.0) mmol/L Calcium (8.4-10.2) mg/dL Total Bilirubin (0.2-1.3) mg/dL AST (17-59) U/L Total Creatine Kinase (55-170) U/L CK-MB (CK-2) (0.0-2.4) ng/mL Troponin I (0.000-0.034) ng/mL Total Protein (6.3-8.2) g/dL Albumin (3.5-5.0) g/dL Urine Protein 2+ H (Negative) Urine Glucose (UA) 3+ H (Negative) Urine Ketones Trace H (Negative) Urine Bilirubin 1+ H (Negative) Ur Leukocyte Esterase Large H (Negative) Urine WBC 38 H (0-5) /hpf Urine Bacteria Few H (None) /hpf Hyaline Casts 28 H (0-2) /lpf Urine Mucus Rare H (None) /hpf 01/22/18 01/23/18 01/23/18 Range/Units 23:35 04:38 04:38 WBC 11.2 H (3.8-10.6) k/uL RBC 3.79 L (4.30-5.90) m/uL Hgb 12.2 L (13.0-17.5) gm/dL Hct 37.6 L (39.0-53.0) % Plt Count 123 L (150-450) k/uL Neutrophils # 9.6 H (1.3-7.7) k/uL Lymphocytes # 0.8 L (1.0-4.8) k/uL PT 12.4 H (9.0-12.0) sec INR 1.3 H (<1.2) APTT 35.8 H (22.0-30.0) sec Sodium (137-145) mmol/L Chloride (98-107) mmol/L Carbon Dioxide (22-30) mmol/L BUN (9-20) mg/dL Creatinine (0.66-1.25) mg/dL Glucose (74-99) mg/dL POC Glucose (mg/dL) (75-99) mg/dL Plasma Lactic Acid Franklin (0.7-2.0) mmol/L Calcium (8.4-10.2) mg/dL Total Bilirubin (0.2-1.3) mg/dL AST (17-59) U/L Total Creatine Kinase 376 H (55-170) U/L CK-MB (CK-2) 13.8 H* (0.0-2.4) ng/mL Troponin I 5.810 H* (0.000-0.034) ng/mL Total Protein (6.3-8.2) g/dL Albumin (3.5-5.0) g/dL Urine Protein (Negative) Urine Glucose (UA) (Negative) Urine Ketones (Negative) Urine Bilirubin (Negative) Ur Leukocyte Esterase (Negative) Urine WBC (0-5) /hpf Urine Bacteria (None) /hpf Hyaline Casts (0-2) /lpf Urine Mucus (None) /hpf 01/23/18 01/23/18 01/23/18 Range/Units 04:38 04:38 07:03 WBC (3.8-10.6) k/uL RBC (4.30-5.90) m/uL Hgb (13.0-17.5) gm/dL Hct (39.0-53.0) % Plt Count (150-450) k/uL Neutrophils # (1.3-7.7) k/uL Lymphocytes # (1.0-4.8) k/uL PT (9.0-12.0) sec INR (<1.2) APTT (22.0-30.0) sec Sodium 135 L (137-145) mmol/L Chloride 108 H (98-107) mmol/L Carbon Dioxide 16 L (22-30) mmol/L BUN 34 H (9-20) mg/dL Creatinine 1.95 H (0.66-1.25) mg/dL Glucose 230 H (74-99) mg/dL POC Glucose (mg/dL) 212 H (75-99) mg/dL Plasma Lactic Acid Franklin (0.7-2.0) mmol/L Calcium 8.3 L (8.4-10.2) mg/dL Total Bilirubin 1.7 H (0.2-1.3) mg/dL AST 76 H (17-59) U/L Total Creatine Kinase 428 H (55-170) U/L CK-MB (CK-2) 21.3 H* (0.0-2.4) ng/mL Troponin I 9.640 H* (0.000-0.034) ng/mL Total Protein 5.7 L (6.3-8.2) g/dL Albumin 2.8 L (3.5-5.0) g/dL Urine Protein (Negative) Urine Glucose (UA) (Negative) Urine Ketones (Negative) Urine Bilirubin (Negative) Ur Leukocyte Esterase (Negative) Urine WBC (0-5) /hpf Urine Bacteria (None) /hpf Hyaline Casts (0-2) /lpf Urine Mucus (None) /hpf 01/23/18 01/23/18 01/23/18 Range/Units 11:53 11:59 11:59 WBC (3.8-10.6) k/uL RBC (4.30-5.90) m/uL Hgb (13.0-17.5) gm/dL Hct (39.0-53.0) % Plt Count (150-450) k/uL Neutrophils # (1.3-7.7) k/uL Lymphocytes # (1.0-4.8) k/uL PT (9.0-12.0) sec INR (<1.2) APTT 42.8 H (22.0-30.0) sec Sodium (137-145) mmol/L Chloride (98-107) mmol/L Carbon Dioxide (22-30) mmol/L BUN (9-20) mg/dL Creatinine (0.66-1.25) mg/dL Glucose (74-99) mg/dL POC Glucose (mg/dL) 199 H (75-99) mg/dL Plasma Lactic Acid Franklin (0.7-2.0) mmol/L Calcium (8.4-10.2) mg/dL Total Bilirubin (0.2-1.3) mg/dL AST (17-59) U/L Total Creatine Kinase (55-170) U/L CK-MB (CK-2) (0.0-2.4) ng/mL Troponin I 9.570 H* (0.000-0.034) ng/mL Total Protein (6.3-8.2) g/dL Albumin (3.5-5.0) g/dL Urine Protein (Negative) Urine Glucose (UA) (Negative) Urine Ketones (Negative) Urine Bilirubin (Negative) Ur Leukocyte Esterase (Negative) Urine WBC (0-5) /hpf Urine Bacteria (None) /hpf Hyaline Casts (0-2) /lpf Urine Mucus (None) /hpf Microbiology - Last 24 Hours (Table) 01/22/18 17:10 Blood Culture Gram Stain - Preliminary Blood Blood Culture - Preliminary Presumptive Staph aureus 01/22/18 17:10 Blood Culture - Final Blood
[2018-01-23 21:05] LABS: Glucose,Whole Blood 166 mg/dL (75-99)
[2018-01-23] MEDS: SODIUM BICARBONATE TAB 650 MG TAB PO SCH (21:08)
[2018-01-23] MEDS: INSULIN DETEMIR 100 UNIT/ML 10 ML VIAL SQ SCH (21:08)
[2018-01-24 05:50] LABS: Basophils % (A) 0 %; Eosinophils % (A) 0 %; HCT 34.7 % (39.0-53.0); HGB 11.3 gm/dL (13.0-17.5); Lymphocytes # (A) 0.7 k/uL (1.0-4.8); Lymphocytes % (A) 7 %; MCHC 32.6 g/dL (31.0-37.0); MCV 98.1 fL (80.0-100.0); Mean Platelet Volume 9.1; Monocytes # (A) 0.9 k/uL (0-1.0); Monocytes % (A) 9 %; Neutrophils # (A) 8.4 k/uL (1.3-7.7); Neutrophils % (A) 82 %; Platelet Count 154 k/uL (150-450); RBC 3.54 m/uL (4.30-5.90); WBC 10.3 k/uL (3.8-10.6)
[2018-01-24 05:59] LABS: INR 1.2 (<1.2); Partial Thromboplastin Time 60.7 sec (22.0-30.0); Prothrombin Time 11.6 sec (9.0-12.0)
[2018-01-24 06:15] LABS: Phosphorus 2.9 mg/dL (2.5-4.5)
[2018-01-24 06:16] LABS: Calcium 7.3 mg/dL (8.4-10.2); Magnesium 1.9 mg/dL (1.6-2.3)
[2018-01-24] MEDS: MAGNESIUM SULFATE-D5W PMX 1 GM in DEXTROSE/WATER 1 100ML.BAG IVPB SCH ×2 (06:32→08:26)
[2018-01-24] MEDS: INSULIN ASPART 100 UNIT/ML 1 ML 10 ML VIAL SQ SCH ×4 (07:04→21:08)
[2018-01-24 07:05] LABS: Glucose,Whole Blood 130 mg/dL (75-99)
--- NOTE | 2018-01-24 07:15 | XR ---
EXAMINATION TYPE: XR chest 1V DATE OF EXAM: 01/24/2018 COMPARISON: 01/23/2018 HISTORY: 87 year-old male shortness of breath TECHNIQUE: Single frontal view of the chest is obtained. FINDINGS: Heart mildly enlarged. Interval development of perihilar and within fluid noted in lower lung airspac e opacity. Underlying pleural effusions are suspected. IMPRESSION: Interval worsening in CHF now with pulmonary edema. Underlying pleural effusion suggested.
[2018-01-24] MEDS: IPRATROPIUM-ALBUTEROL 3 ML NEB INHALATION SCH ×4 (07:35→19:02)
[2018-01-24] MEDS ORDERED: FUROSEMIDE 10 MG/ML 10 ML VIAL IV STA (08:09)
[2018-01-24] MEDS ORDERED: FUROSEMIDE 10 MG/ML 10 ML VIAL IV SCH (08:15)
[2018-01-24] MEDS: AZITHROMYCIN 500 MG in SODIUM CHLORIDE 0.9% 250 ML IVPB SCH (08:27)
[2018-01-24] MEDS: SODIUM BICARBONATE TAB 650 MG TAB PO SCH ×2 (08:27→20:04)
[2018-01-24] MEDS: cefTRIAXone IN SWFI 1,000 MG/10 ML SYRINGE IVP SCH (08:27)
[2018-01-24] MEDS: ATORVASTATIN 40 MG TAB PO SCH (08:27)
[2018-01-24] MEDS: ASPIRIN 81 MG PO SCH (08:28)
--- NOTE | 2018-01-24 08:32 | CONS ---
CONSULTATION DATE OF SERVICE: 01/23/2018. REASON FOR CONSULTATION: Sepsis and gram-positive bacteremia. HISTORY OF PRESENT ILLNESS: The patient is an 87-year-old male who was brought into the ER at [facility] yesterday with the patient presenting with generalized weakness. Apparently it has been going on for progressively a week over the last few days. The patient also noticed to have a wound on the medial aspect of his right big toe. The patient has noticed about 5 days ago. He has developed a wound that has been draining. This wound area is painful at times, especially when the patient walks on it. Intensity about 5-6 and mostly a dull aching pain with some associated purulent drainage. The patient has been complaining of fever with rigors and chills. With these symptoms, the patient was evaluated by the ER physician. On arrival to the ER, the patient did have a fever of 101.2 degrees Fahrenheit. The patient was tachycardic and did have hypertension with systolic down to 83 at one point. The patient did have a chest x-ray done which shows treated for possible bronchitis, interstitial pneumonitis or atypical pneumonia. The patient has been admitted to the ICU because of hypertension. He did have blood cultures drawn, which came to be positive for presumptive Staph aureus. Hence, Infectious Disease was consulted for further recommendation regarding antibiotic therapy. REVIEW OF SYSTEMS: CONSTITUTIONAL: Positive for weakness along with the fever. Eyes no complaint. ENT no complaint. Respiratory as per HPI. Cardiovascular: No complaint. Genitourinary no complaint. GASTROINTESTINAL: No complaint. Musculoskeletal as per HPI. Integumentary as per HPI. PSYCHOLOGICAL: No complaint. Endocrine no complaint. Neurological no complaint. PAST MEDICAL HISTORY: Significant for insulin-dependent diabetes mellitus, hypertension, hyperlipidemia, peripheral arterial disease. PAST SURGICAL HISTORY: Left [id number] amputation. SOCIAL HISTORY: The patient denies smoking, drinking or drug use. FAMILY HISTORY: No pertinent findings noticed. ALLERGIES: No known drug allergies. MEDICATIONS: The patient is currently on: 1. Tylenol. 2. DuoNeb. 3. Aspirin. 4. Lipitor. 5. Azithromycin. 6. Rocephin. 7. Heparin. 8. NovoLog. 9. Levemir. 10.Narcan. 11.Vancomycin 1500 mg daily. EXAMINATION: Blood pressure is 122/62 with a pulse of 105, temperature 98.8, T-max is 101. He is 94% on 7 L high-flow oxygen. General description is an elderly male lying in bed in no distress. No tachypnea or accessory muscles of respiration use. HEENT: No pallor or scleral icterus. Oral mucosa membranes dry. No pharyngeal erythema or thrush. Neck: Trachea central. No thyromegaly. LUNGS: Unlabored breathing. Clear to auscultation anteriorly. No wheeze or crackles. Heart S1, S2. Regular rate and rhythm. ABDOMEN: Soft. No tenderness. Right foot medial border did have a wound with necrotic tissue and some purulent drainage, foul smelling. Neurological: Patient is awake, alert, oriented x3. Mood and affect normal. LABS: Hemoglobin is 12.8, white count 15.8, BUN of 134, creatinine is 1.95. Electrolytes have been normal. Liver enzymes are normal. Lactic acid 4.5. Urine slightly positive. DIAGNOSTIC IMPRESSION AND PLAN: Patient admitted to the hospital with sepsis in this patient who did have a fever of 101 degrees Fahrenheit. The patient was tachycardic, hypotensive with elevated white count: Source is likely right diabetic foot infection, Leonor's grade 3, now with evidence of Streptococcal aureus bacteremia. 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 PLAN: 1. Blood cultures repeated to document clearance of bacteremia. 2. Vancomycin, pharmacy to dose target of 15 while watching his kidney function closely. 3. Obtain x-rays of the right foot. 4. We will obtain vascular surgery evaluation for debridement of this area and see the extent of the wound. 5. We will follow on his clinical condition and culture to further adjust medication if needed. Thank you for this consultation. We will follow this patient along with you. MMODL / IJN: [id number] /
[2018-01-24] MEDS: SODIUM CHLORIDE 0.9% 1,000 ML IV SCH (08:37)
--- NOTE | 2018-01-24 09:33 | US ---
EXAMINATION TYPE: US kidneys/renal and bladder DATE OF EXAM: 01/24/2018 COMPARISON: NONE CLINICAL HISTORY: 87-year-old male Renal failure. TECHNIQUE: Multiple sonographic images of the kidneys and bladder are obtained. FINDINGS: EXAM MEASUREMENTS: Right Kidney: 10.6 x 5.3 x 5.3 cm Left Kidney: 10.8 x 5.1 x 4.9 cm Law Firm Consultant notes:Scanned immobile pt in ICU, difficult to visualize left kidney Right Kidney: No evidence of hydro, visualized portions appeared wnl Left Kidney: No evidence of hydro, visualized portions appeared wnl Bladder: Pt has cath in place Incidental right pleural effusion IMPRESSION: No hydronephrosis.
[2018-01-24] MEDS ORDERED: VANCOMYCIN IV PER PHARMACY 1 EACH MISC MISCELLANE PRN (09:50)
--- NOTE | 2018-01-24 09:52 | P.NPCON ---
History of Present Illness - Reason for Consult acute renal failure - History of Present Illness Reason for consultation: Acute kidney injury History of present illness: Patient is a 87-year-old male seen in renal consultation for acute kidney injury. Creatinine was 21 admission and is 1.92 today. Patient presented to the hospital with fever and generalized weakness. He was noted to be in septic shock and required vasopressors initially. Vasopressors were discontinued yesterday morning. He is noted to have a right toe diabetic wound and is currently maintained on IV vancomycin. He is also noted to have staph aureus bacteremia. Patient received 3 L of normal saline bolus so far and was then maintained on normal saline at 75 mL an hour. Chest x-ray this morning showed pulmonary edema. Patient was also complaining of dyspnea. He received 60 mg of Lasix this morning and is now maintained on 60 mg every 8 hours. His urine output was about 20-30 mL an hour but last hour his urine output was 100 mL. Patient denies any prior history of kidney disease. Denies family history of renal disease. Patient had an echocardiogram done this admission and he is noted to have severe systolic dysfunction. Vital signs are stable. General: The patient appeared well nourished and normally developed. HEENT: Head exam is unremarkable. Neck is without jugular venous distension. LUNGS: Breath sounds decreased. HEART: Rate and Rhythm are regular. First and second heart sounds normal. No murmurs, rubs or gallops. ABDOMEN: Abdominal exam reveals normal bowel sounds. Non-tender and non- distended. No evidence of peritonitis. EXTREMITITES: Trace edema. No obvious drainage noted. Past Medical History Past Medical History: Diabetes Mellitus, Hyperlipidemia, Hypertension History of Any Multi-Drug Resistant Organisms: None Reported Past Surgical History: Orthopedic Surgery Additional Past Surgical History / Comment(s): Left below knee amputation Past Psychological History: No Psychological Hx Reported Smoking Status: Former smoker Past Alcohol Use History: Occasional Past Drug Use History: Unable to Obtain Medications and Allergies Home Medications Medication Instructions Recorded Confirmed Type Glipizide(Unknown) 2 tab PO BID 01/22/18 01/22/18 History Insulin Aspart [Novolog Flexpen] See Protocol SQ ACHS 01/22/18 01/22/18 History Insulin Glargine,Hum.rec.anlog 25 unit SQ HS 01/22/18 01/22/18 History [Lantus Solostar] Latanoprost [Xalatan 0.005%] 1 drop BOTH EYES HS 01/22/18 01/22/18 History Lutein 20 mg PO DAILY 01/22/18 01/22/18 History Multivitamins, Thera [Multivitamin 1 tab PO DAILY 01/22/18 01/22/18 History (formulary)] Ubidecarenone [Co Q-10] 100 mg PO DAILY 01/22/18 01/22/18 History amLODIPine [Norvasc] 5 mg PO DAILY 01/22/18 01/22/18 History Allergies Allergy/AdvReac Type Severity Reaction Status Date / Time No Known Allergies Allergy Verified 01/22/18 17:05 Physical Exam Vitals: Vital Signs Temp Pulse Resp BP Pulse Ox 01/24/18 07:46 92 01/24/18 07:36 90 01/24/18 07:00 90 24 111/59 93 L 01/24/18 06:00 95 28 H 115/66 90 L 01/24/18 05:00 86 28 H 116/65 90 L 01/24/18 04:00 98.8 F 90 28 H 129/72 92 L 01/24/18 03:00 94 30 H 104/53 91 L 01/24/18 02:00 96 28 H 102/59 90 L 01/24/18 01:00 100 28 H 90/56 91 L 01/24/18 00:00 98.7 F 97 33 H 98/52 91 L 01/23/18 23:37 95 30 H 98/52 91 L 01/23/18 23:00 103 H 20 109/59 86 L 01/23/18 22:00 99 28 H 109/66 93 L 01/23/18 21:00 108 H 16 114/65 94 L 01/23/18 20:45 103 H 01/23/18 20:36 101 H 96 01/23/18 20:00 98.8 F 105 H 20 122/62 94 L 01/23/18 19:00 108 H 29 H 110/57 91 L 01/23/18 18:00 100 25 H 119/58 92 L 01/23/18 17:00 102 H 26 H 126/64 93 L 01/23/18 16:26 93 01/23/18 16:11 94 01/23/18 16:00 94 30 H 112/57 93 L 01/23/18 15:00 95 32 H 106/51 94 L 01/23/18 14:00 97 22 103/54 91 L 01/23/18 13:00 101 H 20 90/41 91 L 01/23/18 12:00 99.2 F 101 H 22 103/53 91 L 01/23/18 11:00 95 20 107/88 92 L 01/23/18 10:30 97 22 103/52 90 L 01/23/18 10:00 101 H 20 101/58 92 L Intake and Output 01/23/18 01/24/18 01/24/18 22:59 06:59 14:59 Intake Total 1240.429 600 75 Output Total 255 230 25 Balance 985.429 370 50 Intake: IV 700 600 75 Sodium Chloride 0.9% 1, 450 600 75 000 ml @ 75 mls/hr IV . [id number] [facility] Rx#:[id number] Vancomycin 1,500 mg In 250 Sodium Chloride 0.9% 250 ml @ 125 mls/hr IVPB Q24H [facility] Rx#:[id number] Intake, IV Titration 60.429 Amount Heparin Sod,Pork in 0.45% 60.429 NaCl 25,000 unit In 0.45 % NaCl 1 500ml.bag @ 10.5 UNITS/KG/HR 19.81 mls/hr IV .Q24H [facility] Rx#: [id number] Oral 480 Output: Urine 255 230 25 Other: Voiding Method Indwelling Catheter Indwelling Catheter Weight 96.8 kg Results - Lab Results Most recent lab results Calcium 7.3 mg/dL (8.4-10.2) L 01/24/18 05:28 Phosphorus 2.9 mg/dL (2.5-4.5) 01/24/18 05:28 Magnesium 1.9 mg/dL (1.6-2.3) 01/24/18 05:28 01/24/18 05:28 01/24/18 05:28 Assessment and Plan Plan: Assessment: 1. Acute kidney injury secondary to ATN secondary to hypotension and sepsis. Creatinine 2 and admission and is down to 1.92 today. Unclear as to what his baseline renal function is. No evidence of hydronephrosis noted on renal ultrasound. 2. Sepsis secondary to right toe wound as well as staph aureus bacteremia. Maintain on antibiotics per infectious disease recommendations. 3. Metabolic acidosis secondary to acute kidney injury. 4. Diabetes mellitus. 5. Volume overload. 6. Systolic CHF. Currently decompensated. Plan: Continue with Lasix 60 mg IV 3 times daily. Continue to monitor renal function and urine output closely. Increase bicarbonate 1300 mg twice daily. Avoid nephrotoxic agents and hypotensive episodes. Check vancomycin level. Dose to be adjusted for renal function. Thank you for the consultation. I will continue to follow patient with you during his hospital stay.
[2018-01-24] MEDS: HEPARIN SOD,PORK IN 0.45% NACL 25,000 UNIT in 0.45% NACL 1 500ML.BAG IV SCH (11:57)
[2018-01-24 12:06] LABS: Glucose,Whole Blood 143 mg/dL (75-99)
[2018-01-24] MEDS: COLLAGENASE 250 UNIT/GM OINTMENT 30 GM TUBE TOPICAL SCH (12:11)
--- NOTE | 2018-01-24 12:51 | P.PN ---
Subjective Progress Note Date: 01/24/18 Principal diagnosis: Acute sepsis and septic shock with bacteremia. This is an 87-year-old white male with history of diabetes, hypertension, hyperlipidemia, no documented history of underlying coronary artery disease. Patient presented to the ER last night with mostly complaints of being weak times one day duration. Over the last 24 hours prior to admission, the patient has been noticing generalized weakness, some shortness of breath, minimal cough , had no chest pain, no palpitations, no diaphoresis, but mostly felt generally weak. Patient was evaluated in the ER, his cardiac panel was abnormal with elevated troponin, his EKG showed a left bundle branch block pattern which is a new, his chest x-ray showed interstitial edema, underlying infiltrate is not entirely ruled out, renal profile was also noted to be abnormal suggestive of acute kidney injury. Patient was admitted with the impression of sepsis, and possibly septic shock since the patient was given fluid boluses initially, blood pressure remained low, and he required few hours of levo fed which has been discontinued early this morning in the ICU. Follow-up chest x-ray showed slight worsening in his interstitial edema. Again the possibility of underlying pneumonia is not entirely ruled out. His urinalysis was suggestive of possible urinary tract infection although the patient had no symptoms of dysuria frequency or urgency. Patient has a chronic ulcer which is rather deep at the lateral aspect of his big toe, being treated on outpatient basis by his primary care physician. Patient was empirically placed on antibiotics, including vancomycin, Rocephin and Zithromax. Shortly after he was admitted, we were informed that his blood cultures are positive for gram-positive cocci in clusters. Hence vancomycin will be continued. Of course the sources of his infection could be his right foot, could also be related to urinary tract infection or underlying pneumonia which I believe at this point is the least likely. Considering his elevated troponins, and considering his abnormal renal functioning, patient was placed on heparin, he will not be able to have cardiac catheterization, and his non-ST elevation myocardial infarction will be managed medically. Seen by cardiology, recommended echocardiography, heparin, baby aspirin, Lipitor, and monitoring in the ICU for now. Patient was reevaluated today on 01/24/2018, complaining of increased shortness of breath, urine output is marginal, chest x-ray is showing worsening congestive heart failure, hence I have recommended Lasix 60 mg IV push every 8 hours. Patient remains on high flow nasal cannula at 8 L. O2 saturation is in the low 90s. Labs showed normal CBC hemoglobin is 11.3 WBC count is 10.3 his PTT is therapeutic electrolytes are normal except for bicarb of 16 BUN is 36 creatinine is 1.92 Ricardo slightly improved compared to creatinine upon presentation. However initiated nephrology consultation for his acute kidney injury. Objective - Vital Signs Vital signs: Vital Signs Temp 97.3 F L 01/24/18 12:00 Pulse 99 01/24/18 12:00 Resp 35 H 01/24/18 12:00 BP 114/66 01/24/18 12:00 Pulse Ox 91 L 01/24/18 12:00 Intake & Output 01/23/18 01/24/18 01/24/18 18:59 06:59 18:59 Intake Total 2146.924 1240 980 Output Total 398 360 285 Balance 1748.924 880 695 Weight 96.8 kg Intake: IV 1150 1000 480 Azithromycin 500 mg In 250 250 Sodium Chloride 0.9% 250 ml @ 125 mls/hr IVPB DAILY [facility] Rx#:[id number] Sodium Chloride 0.9% 1, 900 750 230 000 ml @ 20 mls/hr IV . Q24H [facility] Rx#:[id number] Vancomycin 1,500 mg In 250 Sodium Chloride 0.9% 250 ml @ 125 mls/hr IVPB Q24H [facility] Rx#:[id number] Intake, IV Titration 276.924 500 Amount Heparin Sod,Pork in 0.45% 276.924 500 NaCl 25,000 unit In 0.45 % NaCl 1 500ml.bag @ 10.5 UNITS/KG/HR 19.81 mls/hr IV .Q24H [facility] Rx#: [id number] Oral 720 240 Output: Urine 398 360 285 Other: Voiding Method Indwelling Catheter Indwelling Catheter Indwelling Catheter - Exam General appearance: alert, in no apparent distress very pleasant, complaining of shortness of breath, on high flow nasal cannula. Head exam: atraumatic, normocephalic Eye exam: normal appearance, PERRLA, EOMI, no icterus. ENT exam: mucous membranes dry Neck exam: normal inspection. Absent: tenderness, meningismus no neck masses, no JVD. Respiratory exam: normal lung sounds bilaterally. Crackles, no rhonchi, no wheezes. Cardiovascular Exam: regular rate, normal rhythm no S3 gallop, no murmur was appreciated. GI/Abdominal exam: soft. Nontender, no megaly, no rebound, no guarding. Extremities exam:normal inspection, normal capillary refill. Absent: pedal edema there is evidence of left below knee amputation. There is also evidence of deep ulcer at the base of the right big toe medially. Some discharge noted/ cirrhosis nature. Neurological exam: Alert, oriented 3, no gross focal neurologic deficit. Psychiatric exam: normal affect, normal mood, normal mental status examination. Skin exam: Present: 2.5 cm ulcer at the base of the right big toe medially. With serous drainage noted. - Labs CBC & Chem 7: 01/24/18 05:28 01/24/18 05:28 Labs: Abnormal Lab Results - Last 24 Hours (Table) 01/23/18 01/23/18 01/23/18 Range/Units 11:59 17:06 19:50 RBC (4.30-5.90) m/uL Hgb (13.0-17.5) gm/dL Hct (39.0-53.0) % Neutrophils # (1.3-7.7) k/uL Lymphocytes # (1.0-4.8) k/uL INR (<1.2) APTT 59.4 H (22.0-30.0) sec Sodium (137-145) mmol/L Chloride (98-107) mmol/L Carbon Dioxide (22-30) mmol/L BUN (9-20) mg/dL Creatinine (0.66-1.25) mg/dL Glucose (74-99) mg/dL POC Glucose (mg/dL) 165 H (75-99) mg/dL Calcium (8.4-10.2) mg/dL Troponin I 9.570 H* (0.000-0.034) ng/mL 01/23/18 01/24/18 01/24/18 Range/Units 21:04 05:28 05:28 RBC 3.54 L (4.30-5.90) m/uL Hgb 11.3 L (13.0-17.5) gm/dL Hct 34.7 L (39.0-53.0) % Neutrophils # 8.4 H (1.3-7.7) k/uL Lymphocytes # 0.7 L (1.0-4.8) k/uL INR 1.2 H (<1.2) APTT 60.7 H (22.0-30.0) sec Sodium (137-145) mmol/L Chloride (98-107) mmol/L Carbon Dioxide (22-30) mmol/L BUN (9-20) mg/dL Creatinine (0.66-1.25) mg/dL Glucose (74-99) mg/dL POC Glucose (mg/dL) 166 H (75-99) mg/dL Calcium (8.4-10.2) mg/dL Troponin I (0.000-0.034) ng/mL 01/24/18 01/24/18 01/24/18 Range/Units 05:28 07:03 12:04 RBC (4.30-5.90) m/uL Hgb (13.0-17.5) gm/dL Hct (39.0-53.0) % Neutrophils # (1.3-7.7) k/uL Lymphocytes # (1.0-4.8) k/uL INR (<1.2) APTT (22.0-30.0) sec Sodium 135 L (137-145) mmol/L Chloride 112 H (98-107) mmol/L Carbon Dioxide 16 L (22-30) mmol/L BUN 36 H (9-20) mg/dL Creatinine 1.92 H (0.66-1.25) mg/dL Glucose 126 H (74-99) mg/dL POC Glucose (mg/dL) 130 H 143 H (75-99) mg/dL Calcium 7.3 L (8.4-10.2) mg/dL Troponin I (0.000-0.034) ng/mL Microbiology - Last 24 Hours (Table) 01/23/18 11:55 Gram Stain - Preliminary Foot - Right Wound Culture - Preliminary Presumptive Staph aureus Gram Neg Bacilli 01/22/18 17:10 Blood Culture Gram Stain - Final Blood Blood Culture - Preliminary Staphylococcus aureus 01/22/18 18:00 Urine Culture - Preliminary Urine,Voided 01/23/18 13:00 Anaerobic Culture - Preliminary Foot - Right Assessment and Plan Assessment: Impression: 1 acute sepsis and septic shock with bacteremia and positive blood cultures for gram-positive cocci in clusters. Presumptive staph aureus 2 suspect primary source of his sepsis is from his ulcer at the base of his right big toe, this may have to be further evaluated by infectious disease on consultation. However the possibility of sepsis from underlying pneumonia is not entirely ruled out, sepsis from urinary tract infection is also not entirely ruled out but felt to be less likely. 3 asymptomatic urinary tract infection 4 diabetic foot ulcer/right foot/big toe 5 possible community-acquired pneumonia 6 acute non-ST elevation myocardial infarction 7 acute kidney injury secondary to hypotension secondary to sepsis and septic shock. 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 History of osteoarthritis. Recommendation: Continue treatment as per sepsis and septic shock protocol, continue heparin for his acute non-ST elevation myocardial infarction, awaiting cultures from the foot ulcer also awaiting cultures from the sputum and urine. We'll continue to follow, patient needs to be monitored closely in the ICU. Started Lasix 60 mg IV push every 8 hours for his abnormal chest x-ray and congestive heart failure findings, initiated nephrology consultation, patient will be monitored in the ICU. No plans to transfer the patient out of the ICU today. Time with Patient: Less than 30
[2018-01-24] MEDS: FUROSEMIDE 250 MG in SODIUM CHLORIDE 0.9% 225 ML IVP SCH (15:02)
[2018-01-24] MEDS: BISACODYL 5 MG TABLET.DR PO PRN (17:05)
[2018-01-24 17:25] LABS: Glucose,Whole Blood 141 mg/dL (75-99)
--- NOTE | 2018-01-24 18:10 | XR ---
EXAMINATION TYPE: XR chest 1V portable DATE OF EXAM: 01/24/2018 COMPARISON: Today HISTORY: Short of breath TECHNIQUE: Single frontal view of the chest is obtained. FINDINGS: There is pulmonary edema. There is blunting of costophrenic angles. Thoracic aorta is athe romatous. There are chest leads. IMPRESSION: Pulmonary edema probably due to congestive heart failure. Increased pleural fluid compar ed to exam this morning.
[2018-01-24 19:47] LABS: ABG Base Excess -9.3 mmol/L; ABG HCO3 15 mmol/L (21-25); ABG PCO2 23 mmHg (35-45); ABG PH 7.42 (7.35-7.45); ABG PO2 68 mmHg (83-108); ABG TCO2 16 mmol/L (19-24)
[2018-01-24 21:06] LABS: Glucose,Whole Blood 132 mg/dL (75-99)
[2018-01-24] MEDS: INSULIN DETEMIR 100 UNIT/ML 10 ML VIAL SQ SCH (21:07)
[2018-01-24] MEDS: CIPROFLOXACIN HCL 500 MG TAB PO SCH (22:00)
[2018-01-25] MEDS: ceFAZolin IN SWFI 2 GM/20 ML SYRINGE IVP SCH ×3 (00:14→16:56)
[2018-01-25] MEDS: FUROSEMIDE 250 MG in SODIUM CHLORIDE 0.9% 225 ML IVP SCH ×2 (02:13→17:04)
[2018-01-25] MEDS: HEPARIN SOD,PORK IN 0.45% NACL 25,000 UNIT in 0.45% NACL 1 500ML.BAG IV SCH (05:14)
[2018-01-25 05:19] LABS: ABG Base Excess -6.6 mmol/L; ABG HCO3 17 mmol/L (21-25); ABG Oxygen Saturation 92.2 % (94-97); ABG PCO2 23 mmHg (35-45); ABG PH 7.47 (7.35-7.45); ABG PO2 56 mmHg (83-108); ABG TCO2 18 mmol/L (19-24)
[2018-01-25 05:54] LABS: Basophils % (A) 0 %; Eosinophils % (A) 0 %; HCT 36.9 % (39.0-53.0); HGB 11.8 gm/dL (13.0-17.5); Lymphocytes # (A) 0.9 k/uL (1.0-4.8); Lymphocytes % (A) 9 %; MCH 30.9 pg (25.0-35.0); MCHC 31.8 g/dL (31.0-37.0); Monocytes % (A) 9 %; Neutrophils # (A) 8.5 k/uL (1.3-7.7); Neutrophils % (A) 79 %; Platelet Count 170 k/uL (150-450); RBC 3.81 m/uL (4.30-5.90); WBC 10.8 k/uL (3.8-10.6)
[2018-01-25 05:57] LABS: INR 1.1 (<1.2); Partial Thromboplastin Time 49.6 sec (22.0-30.0)
--- NOTE | 2018-01-25 07:02 | PN ---
PROGRESS NOTE This patient is feeling better. Remains comfortable. No respiratory distress is noted. The patient's preliminary blood cultures are suggestive of Staph aureus. Infectious Disease people are on consult. The patient's echocardiogram reveals a severely impaired left ventricular systolic function with global hypokinesia. The patient denies any chest pain. Patient's respiratory rate is 30, blood pressure is 114/62 mmHg. Heart: First and second heart sounds are normal. Lungs reveal bilateral basal rales. Abdomen is soft. The patient's chest x-ray is suggestive of congestive heart failure. proBNP level is 21,800. FINAL IMPRESSION: This patient has developed acute congestive heart failure, possibly secondary to fluid overload. Patient has been given Lasix 60 mg q.8 hourly. The patient also being treated with a staph bacteremia and septicemia. The patient's maximum troponin was 9.57, which this is suggestive of non ST-segment elevation myocardial infarction. Patient's overall prognosis is poor. Continue the current medications. The patient is not a candidate for any intervention at present in view of the underlying septicemia and fever. MMODL / IJN: [id number] /
[2018-01-25] MEDS: INSULIN ASPART 100 UNIT/ML 1 ML 10 ML VIAL SQ SCH ×4 (07:06→20:07)
[2018-01-25 07:07] LABS: Glucose,Whole Blood 63 mg/dL (75-99)
--- NOTE | 2018-01-25 07:43 | XR ---
EXAMINATION TYPE: XR chest 1V DATE OF EXAM: 01/25/2018 COMPARISON: Prior chest x-ray 01/24/2018 HISTORY: Shortness of breath TECHNIQUE: Single frontal view of the chest is obtained. FINDINGS: Pleural parenchymal changes show similar appearance. Bibasilar increased density obscures the hemidiaphragms, there is blunting of the costophrenic angles. Heart is obscured. Perihilar airspa ce disease is present, the interstitium is increased. No evident pneumothorax. IMPRESSION: Findings are similar to prior exam, correlate for congestive heart failure and pulmonary edema, pneumonia not excluded, there is likely associated pleural effusions.
[2018-01-25 07:55] LABS: Glucose,Whole Blood 97 mg/dL (75-99)
[2018-01-25] MEDS: IPRATROPIUM-ALBUTEROL 3 ML NEB INHALATION SCH ×4 (08:02→19:54)
--- NOTE | 2018-01-25 08:02 | PN ---
PROGRESS NOTE DATE OF SERVICE: 01/24/2018. REASON FOR FOLLOWUP: 1. MSSA bacteremia. 2. Right diabetic foot wound with possible osteomyelitis acute. INTERVAL HISTORY: The patient is afebrile. He has been breathing more comfortably. He is hemodynamically stable, not on pressor support. Denies significant chest pain. Occasional cough. No abdominal pain or any worsening pain in the right foot wound area. PHYSICAL EXAMINATION: Blood pressure 110/67 with a pulse of 95, temperature 98.3. He is 99% on BiPAP. General description is an elderly male up in the bed in no distress. Respiratory system: Unlabored breathing. Clear to auscultation anteriorly. Heart S1, S2. Regular rate and rhythm. Abdomen is soft, no tenderness. Right foot medial border wound with slough tissue and the surrounding erythema. No foul smelling drainage. LABS: Hemoglobin is 11.8, white count 10.3, BUN of 36, creatinine 1.92. Blood cultures have been finalized with MSSA foot culture showing presumptive Staph aureus bacilli. X- rays has been suggestive of a 1st MP joint septic arthritis. DIAGNOSTIC IMPRESSION AND PLAN: Patient with MSSA bacteremia, source is likely right diabetic foot infection at the medial side in the base of the 1st toe with concern for possible septic arthritis. Vascular surgeon on the case for debridement of this wound. Local wound care to continue with Santyl. Antibiotic will be adjusted to cefazolin and Cipro to cover for the MSSA and gram-negative. Family was present at bedside. Questions answered. MMODL / IJN: [id number] /
--- NOTE | 2018-01-25 08:16 | P.PN ---
Subjective Progress Note Date: 01/25/18 Principal diagnosis: Sepsis, community-acquired pneumonia, non-ST segment elevation myocardial infarction Progress note dated 01/25/2018 87-year-old male admitted on January 22 with a diagnosis of sepsis, immediately acquired pneumonia, and non-ST segment elevation myocardial infarction. The patient was placed on BiPAP this morning or last night with settings of IPAP 12 EPAP 4, 60% FiO2. Arterial blood gases show a PaO2 of 56 PaCO2 23. 7.47. The patient's currently on IV heparin via weightbase protocol Lasix drip at 20 mg an hour and a saline IV KVO. Blood cultures were positive for staph aureus, urine cultures show gram-negative bacilli which have not yet been identified, and right great toe wound culture shows gram-negative bacilli and presumptive staph aureus. Currently, the patient appears to be reasonably comfortable. Mildly dyspneic. Heart rate 90. Left pressure 112/60 with me in 92, saturation 98% respiratory rate in the low 20s. CODE STATUS does need to be addressed with this patient. Chest x-rays consistent with mild CHF. He has small effusions. Objective - Vital Signs Vital signs: Vital Signs Temp 97.7 F 01/25/18 04:00 Pulse 83 01/25/18 07:00 Resp 25 H 01/25/18 07:00 BP 109/61 01/25/18 07:00 Pulse Ox 96 01/25/18 07:00 Intake & Output 01/24/18 01/25/18 01/25/18 18:59 06:59 18:59 Intake Total 1150 891.833 Output Total 505 1675 Balance 645 -783.167 Weight 96.1 kg Intake: IV 650 280 Azithromycin 500 mg In 250 Sodium Chloride 0.9% 250 ml @ 125 mls/hr IVPB DAILY [facility] Rx#:[id number] Furosemide 250 mg In 50 20 Sodium Chloride 0.9% 225 ml @ 20 MG/HR 20 mls/hr IVP .[id number] [facility] Rx#: [id number] Sodium Chloride 0.9% 1, 350 260 000 ml @ 20 mls/hr IV . Q24H [facility] Rx#:[id number] Intake, IV Titration 500 611.833 Amount Furosemide 250 mg In 111.833 Sodium Chloride 0.9% 225 ml @ 20 MG/HR 20 mls/hr IVP .[id number] [facility] Rx#: [id number] Heparin Sod,Pork in 0.45% 500 500 NaCl 25,000 unit In 0.45 % NaCl 1 500ml.bag @ 10.5 UNITS/KG/HR 19.81 mls/hr IV .Q24H [facility] Rx#: [id number] Output: Urine 505 1675 Other: Voiding Method Indwelling Catheter Indwelling Catheter - Exam No acute distress, oriented 3. Mild tachypnea, BiPAP mask in place. HEENT examination is grossly unremarkable. Mucous membranes are moist. Neck supple. Full range of motion. No adenopathy thyromegaly or neck vein distention. Cardiovascular examination reveals regular rhythm rate. S1-S2 normal. No S3 or S4. No discernible murmur noted. Heart sounds are distant with a heart rate of 89. Lungs reveal diffuse bilateral crackles. Breath sounds are diminished. Scattered coarse rhonchi are noted. Breath sounds equal bilaterally. Abdomen soft bowel sounds are heard. No masses or tenderness. Extremities are intact. Mild edema without cyanosis or clubbing. Left BKA noted. Skin is without rash or lesion. Neurologic examination is brief but nonfocal. - Labs CBC & Chem 7: 01/25/18 05:28 01/24/18 20:07 Labs: Abnormal Lab Results - Last 24 Hours (Table) 01/24/18 01/24/18 01/24/18 Range/Units 12:04 17:23 19:40 WBC (3.8-10.6) k/uL RBC (4.30-5.90) m/uL Hgb (13.0-17.5) gm/dL Hct (39.0-53.0) % Neutrophils # (1.3-7.7) k/uL Lymphocytes # (1.0-4.8) k/uL APTT (22.0-30.0) sec ABG pH (7.35-7.45) ABG pCO2 23 L (35-45) mmHg ABG pO2 68 L (83-108) mmHg ABG HCO3 15 L (21-25) mmol/L ABG Total CO2 16 L (19-24) mmol/L ABG O2 Saturation (94-97) % POC Glucose (mg/dL) 143 H 141 H (75-99) mg/dL 01/24/18 01/25/18 01/25/18 Range/Units 21:04 05:12 05:28 WBC 10.8 H (3.8-10.6) k/uL RBC 3.81 L (4.30-5.90) m/uL Hgb 11.8 L (13.0-17.5) gm/dL Hct 36.9 L (39.0-53.0) % Neutrophils # 8.5 H (1.3-7.7) k/uL Lymphocytes # 0.9 L (1.0-4.8) k/uL APTT (22.0-30.0) sec ABG pH 7.47 H (7.35-7.45) ABG pCO2 23 L (35-45) mmHg ABG pO2 56 L (83-108) mmHg ABG HCO3 17 L (21-25) mmol/L ABG Total CO2 18 L (19-24) mmol/L ABG O2 Saturation 92.2 L (94-97) % POC Glucose (mg/dL) 132 H (75-99) mg/dL 01/25/18 01/25/18 Range/Units 05:28 07:05 WBC (3.8-10.6) k/uL RBC (4.30-5.90) m/uL Hgb (13.0-17.5) gm/dL Hct (39.0-53.0) % Neutrophils # (1.3-7.7) k/uL Lymphocytes # (1.0-4.8) k/uL APTT 49.6 H (22.0-30.0) sec ABG pH (7.35-7.45) ABG pCO2 (35-45) mmHg ABG pO2 (83-108) mmHg ABG HCO3 (21-25) mmol/L ABG Total CO2 (19-24) mmol/L ABG O2 Saturation (94-97) % POC Glucose (mg/dL) 63 L (75-99) mg/dL Microbiology - Last 24 Hours (Table) 01/22/18 18:00 Urine Culture - Preliminary Urine,Voided Gram Neg Bacilli 01/22/18 17:10 Blood Culture Gram Stain - Final Blood Blood Culture - Final Staphylococcus aureus 01/23/18 11:55 Gram Stain - Preliminary Foot - Right Wound Culture - Preliminary Presumptive Staph aureus Gram Neg Bacilli Assessment and Plan Assessment: Assessment Acute sepsis with septic shock secondary to staph aureus bacteremia urinary tract infection and right great toe infection Diabetic foot ulcer, right great toe Community-acquired pneumonia, possible Acute non-ST; elevation myocardial infarction Acute kidney injury Left below the knee amputation History of hypertension History of hyperlipidemia History of osteoarthritis Peripheral vascular occlusive disease Hypoxemic respiratory failure Plan: Plan dated 01/25/2018 The patient will remain on BiPAP at the current time. Blood gases show a PaO2 of 56, PaCO2 of 23, and pH is 7.47. Microbiology has been documented. Blood cultures are positive for Staphylococcus aureus and right great toe when cultures show presumptive staph. In addition, there is gram-negative bacilli in the urine. In addition, chest x-ray shows fluid overload with bilateral effusions. White count 10.8, hemoglobin 11.8, hematocrit 36.9, and platelet count normal. PT/INR were normal. I did discuss the importance of CODE STATUS a dressing with the nurses. We'll do that with the patient and the patient's family. I think would be very did a very difficult for this patient if he ended up on life support. Additional recommendations and suggestions forthcoming. Prognosis is guarded. Critical care time 32 minutes Time with Patient: Greater than 30
--- NOTE | 2018-01-25 08:33 | PN ---
PROGRESS NOTE DATE OF SERVICE: 01/24/2018 PRESENTING COMPLAINT: Short of breath. INTERVAL HISTORY: This is a patient in the ICU I saw earlier today. The patient's active diagnosis include sepsis with septic shock on presentation, pneumonia, infected right foot big toe, possibly osteomyelitis, UTI. The patient remains on IV heparin. Became more short of breath later today, was put on a BiPAP. Initially was on IV bolus Lasix but then was put on Lasix drip. The patient did eat some breakfast and lunch earlier today. REVIEW OF SYSTEMS: Done for constitutional, cardiovascular, GI, pulmonary; relevant findings as above. CURRENT MEDICATIONS: Current medications are reviewed that include DuoNeb, IV Ancef, p.o. Cipro, Lasix drip, IV heparin, IV Levophed, now discontinued. PHYSICAL EXAMINATION: On examination, afebrile, pulse 88, respiration 26, blood pressure 107/59, pulse ox 100% on BiPAP. GENERAL APPEARANCE: Lying in bed, tired appearing. BiPAP in place. EYES: Pupils equal. Conjunctivae normal. HENT: External appearance of nose and ears normal. Oral cavity could not be assessed BiPAP in place. NECK: JVD unable to assess. Mass not palpable. RESPIRATORY: Effort increased. LUNGS: Decreased breath sounds. CARDIOVASCULAR: First and second sounds normal. Edema in the right leg. ABDOMEN: Soft, nontender. Liver and spleen not palpable. PSYCHIATRY: Alert and oriented x3. Mood and affect normal. MUSCULOSKELETAL: Left below-knee amputation and wound on the right foot big toe. INVESTIGATIONS: White count 10.3, hemoglobin 11.3. Potassium 4. BUN 36, creatinine 1.92. Chest x-ray shows pulmonary edema with pleural effusion, questionable infiltrate. ASSESSMENT: 1. Severe sepsis with septic shock on presentation source could be pneumonia or infected big toe on the right foot with possible osteomyelitis. The patient is now off Levophed today. 2. Bilateral basal pneumonia suspect gram-negative organism. 3. Right big toe infected, possibly acute osteomyelitis/septic arthritis. 4. Possible acute non ST elevation myocardial silent infarction. 5. Possible type 2 myocardial infarction from sepsis per Cardiology. 6. Chronic left below-knee amputation. Patient normally uses a prosthesis. 7. Diabetes mellitus type 2, chronically on insulin, uncontrolled with hyperglycemia. 8. History of essential hypertension. 9. Hyperlipidemia. 10.Acute kidney injury could be acute tubular necrosis from sepsis. 11.Acute urinary tract infection. 12.Acute lactic acidosis from sepsis. 13.Acute hypoxic respiratory failure from chronic obstructive pulmonary disease, pneumonia and congestive heart failure. PLAN: Continue current medication and treatment plan. Patient now put on a Lasix drip, also remains on IV heparin. Nephrology is also consulted. Will follow closely. CHRISTIN / CHUCKN: [id number] /
[2018-01-25 08:39] LABS: Calcium 8.3 mg/dL (8.4-10.2); Magnesium 2.3 mg/dL (1.6-2.3); Phosphorus 3.9 mg/dL (2.5-4.5); Potassium 3.8 mmol/L (3.5-5.1)
--- NOTE | 2018-01-25 08:54 | PN ---
PROGRESS NOTE Mr. Clarke is an 87-year-old male who presented to the hospital with progressive fatigue, was noted to be febrile, had mild cough and low blood pressure. He is feeling better today. His breathing is stable. He denies any symptoms of chest discomfort. Hemodynamically, he is stable. He had evidence consistent with acute sepsis and septic shock with positive blood cultures. He is status post left BKA. He continues to be at this time on aspirin, Lipitor 40 mg daily, furosemide IV drip at 20 mg an hour. PHYSICAL EXAMINATION: Blood pressure 109/60 with a heart in the 80s. LUNGS: Clear anteriorly. HEART: Regular rate and rhythm. S1, S2. No S3 with systolic ejection murmur. No diastolic murmur. No rub. ABDOMEN: Soft, nontender. Positive bowel sounds. No megaly. EXTREMITIES: +1 edema on the right side. LAB DATA: Lab data revealed a hemoglobin of 11.8, white blood cell of 10.8. Yesterday his BUN and creatinine was 36 and 1.92. His troponin is up to 9.57. His echo report is pending. His chest x-ray yesterday showed evidence of pulmonary edema. The chest x-ray today revealed the left pleural effusion with evidence of fluid overload. Compared with the x- ray that was performed yesterday there is mild improvement. IMPRESSION: 1. Evidence of sepsis with positive blood cultures. 2. Fluid overload. 3. Diabetic foot ulcer. 4. Possible pneumonia. 5. Non ST-segment elevation myocardial infarction. 6. Acute kidney injury. RECOMMENDATION: I will continue on the diuretic at this time. We will follow his renal function closely. We will review the results of his echocardiogram. I will add a low-dose beta edwin to his regimen. Depending on his progress, further recommendation will be made. MMODL / IJN: [id number] /
[2018-01-25] MEDS: SODIUM BICARBONATE TAB 650 MG TAB PO SCH ×2 (08:55→20:07)
[2018-01-25] MEDS: ASPIRIN 81 MG PO SCH (08:55)
[2018-01-25] MEDS: METOPROLOL TARTRATE 12.5 MG TAB PO SCH ×2 (08:55→20:07)
[2018-01-25] MEDS: CIPROFLOXACIN HCL 500 MG TAB PO SCH (08:55)
[2018-01-25] MEDS: ATORVASTATIN 40 MG TAB PO SCH (08:55)
[2018-01-25] MEDS: COLLAGENASE 250 UNIT/GM OINTMENT 30 GM TUBE TOPICAL SCH (08:58)
[2018-01-25] MEDS: SODIUM CHLORIDE 0.9% 1,000 ML IV SCH (08:58)
[2018-01-25] MEDS: POTASSIUM CHLORIDE ER 20 MEQ TAB.ER PO SCH ×2 (11:52→16:56)
[2018-01-25] MEDS ORDERED: POTASSIUM CHLORIDE ER 20 MEQ TAB.ER PO SCH (12:00)
[2018-01-25 12:17] LABS: Glucose,Whole Blood 103 mg/dL (75-99)
--- NOTE | 2018-01-25 16:00 | PN ---
PROGRESS NOTE Patient is seen for followup for acute kidney injury and volume overload. He is maintained on Lasix drip which was increased to 20 mg an hour last night. Urine output has now picked up. Currently patient is comfortable. He is off of the BiPAP. His breathing is easier. He has good urine output, which has been at about 60 to 100 mL an hour now. PHYSICAL EXAMINATION: Blood pressure was this morning 104/63, heart rate 90 per minute. He is afebrile. Examination of the heart S1, S2. Examination of the lungs bilateral breath sounds are heard. Decreased breath sounds at bases. Abdomen is soft, obese, nontender. Examination of the lower extremities shows edema 1+ bilaterally. HEAD OF MARKETING ADOMETRY exam is grossly intact. LAB DATA: Shows sodium of 135, potassium 3.8, CO2 15, BUN 50, serum creatinine 2.45. ASSESSMENT: 1. Acute kidney injury, acute tubular necrosis, currently nonoliguric. Serum creatinine is higher today as compared to yesterday. However, urine output has picked up. I will decrease the Lasix drip to about 15 mg an hour and we will followup later on tonight. If he continues to have good urine output, I will decrease it further to 10 mg an hour. 2. Volume overload, currently slowly improving. 3. Sepsis right toe wound which grew Staph aureus and the maltophilia. 4. Urinary tract infection with urine culture growing Gram-negative bacilli. 5. Staphylococcus aureus bacteremia, most likely from the wound. PLAN: 1. Monitor vancomycin levels closely. 2. Decrease Lasix drip and decrease further later on tonight depending on the urine output. 3. Repeat labs in a.m. MMODL / IJN: [id number] /
--- NOTE | 2018-01-25 16:33 | CONS ---
CONSULTATION This 87-year-old gentleman who has been in the intensive care unit, I was consulted for right foot big toe base with an infected ulcer. Patient has history of the congestive heart failure, pulmonary edema and pleural effusion. I was consulted from Infectious Disease for wound debridement. The patient has been on Santyl for local wound care. SURGICAL HISTORY: Patient had a left below-knee amputation done in the past. PAST MEDICAL HISTORY: History of diabetes mellitus, hypertension, hyperlipidemia, peripheral vascular disease. ALLERGIES: No known allergies. PHYSICAL EXAMINATION: Patient was seen in intensive care unit. The patient is very short of breath, has a nasal oxygen. Chest has crackles bilateral. ABDOMEN: Soft. Femorals are 1+. Patient has a right foot big toe base, has a large infected wound with some drainage noted. Culture grew as a Staph aureus. Discussed with infectious disease, patient needs debridement and deep culture. MMODL / IJN: [id number] /
--- NOTE | 2018-01-25 17:27 | PN ---
PROGRESS NOTE DATE OF SERVICE: 01/25/2018. REASON FOR FOLLOWUP: MSSA bacteremia with right diabetic foot infection and osteomyelitis. INTERVAL HISTORY: The patient is afebrile. He is breathing comfortably. Denies having any chest pain. No shortness of breath. Occasional cough. No abdominal pain. No pain to the right foot area. EXAMINATION: Blood pressure 110/58 with a pulse of 95, temp 97.7. He is 92% on 15L high-flow oxygen. General description is an elderly male lying in bed in no distress. RESPIRATORY SYSTEM: Unlabored breathing. Clear to auscultation anteriorly. HEART: S1, S2. Regular rate and rhythm. ABDOMEN: Soft. No tenderness. Right foot wound with slough tissue and minimum surrounding erythema. No drainage. LABS: Hemoglobin is 11.8, white count of 10.8 with a BUN of 50, creatinine of 2.45. Blood cultures with MSSA. Wound culture showing MSSA as well as Stenotrophomonas maltophilia. DIAGNOSTIC IMPRESSION AND PLAN: Patient with methicillin-sensitive Staphylococcus aureus bacteremia, source is right diabetic foot infection with underlying septic arthritis/osteomyelitis. Local wound care to continue with central possible debridement by Vascular Surgery, antibiotic in the form of cefazolin and Cipro. Family present at bedside. Questions answered. MMODL / IJN: [id number] /
[2018-01-25 17:28] LABS: Glucose,Whole Blood 95 mg/dL (75-99)
--- NOTE | 2018-01-25 17:35 | OP ---
OPERATIVE REPORT PREOPERATIVE DIAGNOSIS: Infected wound, right foot base of the big toe medial aspect. Measurement is 2 x 2 cm. PROCEDURE: Excision and debridement of the necrotic tissue, base of the right foot big toe medial aspect. PROCEDURE DESCRIPTION: The patient was seen in the intensive care unit. Right foot was prepped and draped in usual sterile manner. Lidocaine 1% was infiltrated. Using a knife, we did excision and debridement of the necrotic tissue down to subcutaneous tissue, fat and fascia. All the necrotic tissue was removed. Some oozing was noted, which was controlled by pressure. Wound was irrigated with saline. Santyl cream was applied to the wound and dressing was applied. Patient tolerated the procedure well. PLAN: We will change the dressing with Santyl and local wound care and IV antibiotic. Will follow with you. MMREYNALDOL / IJN: [id number] /
[2018-01-25] MEDS: ACETAMINOPHEN TAB 325 MG TAB PO PRN ×2 (18:34→22:12)
[2018-01-25 20:05] LABS: Glucose,Whole Blood 115 mg/dL (75-99)
[2018-01-25] MEDS: INSULIN DETEMIR 100 UNIT/ML 10 ML VIAL SQ SCH (20:36)
--- NOTE | 2018-01-25 23:54 | PN ---
PROGRESS NOTE DATE OF SERVICE: 01/25/2018 PRESENTING COMPLAINT: Tired. INTERVAL HISTORY: This patient is still in the ICU. Bypass was stopped early this morning. Initially presented with sepsis, septic shock with pneumonia, infected right big toe, possibly osteomyelitis, UTI. The patient had been on IV heparin for possible [place]. Had been on Lasix drip. Feeling a bit better today. Patient had debridement of the right big toe by Dr. White today. Some family members are at the bedside. Sitting on the edge of the bed. REVIEW OF SYSTEMS: Done for constitutional, cardiovascular, GI, pulmonary; relevant findings as above. CURRENT MEDICATIONS: Reviewed. They include DuoNeb, Lipitor, IV cefazolin, p.o. Cipro, Lasix drip, IV heparin drip. PHYSICAL EXAMINATION: Temperature 97.7, pulse 88, respiration 22, blood pressure 105/58, pulse ox 100% on 14 L high-flow. GENERAL APPEARANCE: Sitting up at the edge of the bed, awake. Tired. EYES: Pupils equal. Conjunctivae normal. HEENT: External appearance of nose and ears normal. Oral cavity a bit dry. NECK: JVD unable to assess. Mass not palpable. RESPIRATORY: Effort normal. LUNGS: Decreased breath sounds. CARDIOVASCULAR: First and second sounds normal. Edema in the right leg with a dressing on the right foot. ABDOMEN: Soft, nontender. Liver and spleen not palpable. PSYCHIATRY: Alert and oriented x3. Mood and affect normal. MUSCULOSKELETAL: Left below-knee amputation. INVESTIGATIONS: Potassium 3.8, BUN 50, creatinine 2.45. Wound cultures growing Staphylococcus aureus and Stenotrophomonas maltophilia. Urine culture did grow E coli. Blood culture did grow MSSA. ASSESSMENT: 1. Severe sepsis with septic shock on presentation with infective source, possibly osteomyelitis of the right big toe with cultures growing methicillin-susceptible Staphylococcus aeruginosa. 2. Bacteremia with blood cultures positive for methicillin-susceptible Staphylococcus aeruginosa. 3. Acute urinary tract infection positive for Escherichia coli. 4. Possible acute mmp-MX-gbjvljnff myocardial infarction. 5. Possible type 2 myocardial infarction from sepsis. 6. Chronic left below-knee amputation. Patient normally has a prosthesis. 7. Diabetes mellitus, type 2, chronically on insulin, uncontrolled with hyperglycemia. 8. Hyperlipidemia. 9. Acute kidney injury; could be acute tubular necrosis from sepsis, worsening. 10.Acute urinary tract infection from Escherichia coli. 11.Acute lactic acidosis from sepsis. 12.Acute hypoxic respiratory failure from chronic obstructive pulmonary disease, pneumonia, congestive heart failure. PLAN: Continue current medication and treatment plan. Patient remains on Lasix drip, off the BiPAP. Looking a bit better. Renal function is to be closely followed; it has recently been worsening. Diet to be advanced as tolerated. Prognosis is guarded. Care was discussed with the patient and family at the bedside. MMODL / IJN: [id number] /
[2018-01-26] MEDS: ceFAZolin IN SWFI 2 GM/20 ML SYRINGE IVP SCH ×4 (00:11→22:59)
[2018-01-26] MEDS: CIPROFLOXACIN HCL 500 MG TAB PO SCH ×2 (04:00→20:36)
[2018-01-26] MEDS: FUROSEMIDE 250 MG in SODIUM CHLORIDE 0.9% 225 ML IVP SCH ×2 (04:00→10:09)
[2018-01-26 04:42] LABS: Basophils % (A) 0 %; Eosinophils % (A) 0 %; HCT 35.3 % (39.0-53.0); HGB 11.6 gm/dL (13.0-17.5); Lymphocytes # (A) 0.8 k/uL (1.0-4.8); Lymphocytes % (A) 8 %; MCH 32.2 pg (25.0-35.0); MCHC 32.8 g/dL (31.0-37.0); MCV 98.3 fL (80.0-100.0); Mean Platelet Volume 7.9; Monocytes # (A) 0.8 k/uL (0-1.0); Monocytes % (A) 9 %; Neutrophils # (A) 7.8 k/uL (1.3-7.7); Neutrophils % (A) 81 %; Platelet Count 179 k/uL (150-450); RBC 3.59 m/uL (4.30-5.90); RDW 13.1 % (11.5-15.5); WBC 9.6 k/uL (3.8-10.6)
[2018-01-26 04:51] LABS: Calcium 8.2 mg/dL (8.4-10.2); Magnesium 2.4 mg/dL (1.6-2.3)
[2018-01-26 05:12] LABS: INR 1.4 (<1.2); Partial Thromboplastin Time 78.9 sec (22.0-30.0); Prothrombin Time 13.2 sec (9.0-12.0)
[2018-01-26] MEDS: INSULIN ASPART 100 UNIT/ML 1 ML 10 ML VIAL SQ SCH ×4 (06:37→20:37)
[2018-01-26 06:38] LABS: Glucose,Whole Blood 123 mg/dL (75-99)
[2018-01-26] MEDS: IPRATROPIUM-ALBUTEROL 3 ML NEB INHALATION SCH ×4 (07:06→19:44)
--- NOTE | 2018-01-26 08:50 | P.PN ---
Subjective Progress Note Date: 01/26/18 Principal diagnosis: Sepsis, community-acquired pneumonia, non-ST segment elevation myocardial infarction Progress note dated 01/25/2018 87-year-old male admitted on January 22 with a diagnosis of sepsis, immediately acquired pneumonia, and non-ST segment elevation myocardial infarction. The patient was placed on BiPAP this morning or last night with settings of IPAP 12 EPAP 4, 60% FiO2. Arterial blood gases show a PaO2 of 56 PaCO2 23. 7.47. The patient's currently on IV heparin via weightbase protocol Lasix drip at 20 mg an hour and a saline IV KVO. Blood cultures were positive for staph aureus, urine cultures show gram-negative bacilli which have not yet been identified, and right great toe wound culture shows gram-negative bacilli and presumptive staph aureus. Currently, the patient appears to be reasonably comfortable. Mildly dyspneic. Heart rate 90. Left pressure 112/60 with me in 92, saturation 98% respiratory rate in the low 20s. CODE STATUS does need to be addressed with this patient. Chest x-rays consistent with mild CHF. He has small effusions. Progress note dated 01/26/2018 87-year-old male admitted back on January 22. His diagnosis was that of sepsis with possible pneumonia. In addition, he was admitted with a non-ST segment elevation myocardial infarction. The patient's chest x-ray shows significant heart failure. He's been placed on BiPAP. His BiPAP settings included an IPAP of 12 EPAP of 4 and FiO2 60%. When he is not on BiPAP, he is on 14 L high flow. The patient's on a heparin drip. Weightbase protocol, Lasix drip at 15 mg an hour and a saline IV of between 15-20 mL an hour. The patient is no better from my perspective. Blood cultures are positive for staph aureus, urine cultures show gram-negative bacilli and the right great toe wound culture showed gram-negative bacilli and presumptive staph aureus. The patient is a full code. I did have a significant conversation with him yesterday about CODE STATUS. The nurses reported talk to the family members. In my opinion, the respiratory status has declined a bit, and based on the fact that the patient required BiPAP through the night. Objective - Vital Signs Vital signs: Vital Signs Temp 97.8 F 09/05/18 08:00 Pulse 96 01/26/18 08:00 Resp 24 01/26/18 08:00 BP 111/66 01/26/18 08:00 Pulse Ox 95 01/26/18 08:00 Intake & Output 01/25/18 01/26/18 01/26/18 18:59 06:59 18:59 Intake Total 1255 1390.5 20 Output Total 1345 1100 110 Balance -90 290.5 -90 Weight 97.9 kg Intake: IV 405 260 20 Furosemide 250 mg In 185 Sodium Chloride 0.9% 225 ml @ 15 MG/HR 15 mls/hr IVP .[id number] [facility] Rx#: [id number] Sodium Chloride 0.9% 1, 220 260 20 000 ml @ 20 mls/hr IV . Q24H [facility] Rx#:[id number] Intake, IV Titration 250 650.5 Amount Furosemide 250 mg In 250 150.5 Sodium Chloride 0.9% 225 ml @ 15 MG/HR 15 mls/hr IVP .[id number] [facility] Rx#: [id number] Heparin Sod,Pork in 0.45% 500 NaCl 25,000 unit In 0.45 % NaCl 1 500ml.bag @ 10.5 UNITS/KG/HR 19.81 mls/hr IV .Q24H [facility] Rx#: [id number] Oral 600 480 Output: Urine 1345 1100 110 Other: Voiding Method Indwelling Catheter Indwelling Catheter - Exam No acute distress, oriented 3. Mild tachypnea, High flow nasal O2 in place. HEENT examination is grossly unremarkable. Mucous membranes are moist. Neck supple. Full range of motion. No adenopathy thyromegaly or neck vein distention. Cardiovascular examination reveals regular rhythm rate. S1-S2 normal. No S3 or S4. No discernible murmur noted. Heart sounds are distant with a heart rate of 89. Lungs reveal diffuse bilateral crackles. Breath sounds are diminished. Scattered coarse rhonchi are noted. Breath sounds equal bilaterally. Adventitious lung sounds are more prominent today compared to yesterday. Abdomen soft bowel sounds are heard. No masses or tenderness. Extremities are intact. Mild edema without cyanosis or clubbing. Left BKA noted. Edema in the right leg is 1-2+. Skin is without rash or lesion. Neurologic examination is brief but nonfocal. - Labs CBC & Chem 7: 01/26/18 04:25 01/26/18 04:25 Labs: Abnormal Lab Results - Last 24 Hours (Table) 01/23/18 01/25/18 01/25/18 Range/Units 11:59 07:56 12:15 RBC (4.30-5.90) m/uL Hgb (13.0-17.5) gm/dL Hct (39.0-53.0) % Neutrophils # (1.3-7.7) k/uL Lymphocytes # (1.0-4.8) k/uL PT (9.0-12.0) sec INR (<1.2) APTT (22.0-30.0) sec Sodium 135 L (137-145) mmol/L Chloride 109 H (98-107) mmol/L Carbon Dioxide 15 L (22-30) mmol/L BUN 50 H (9-20) mg/dL Creatinine 2.45 H (0.66-1.25) mg/dL Glucose (74-99) mg/dL POC Glucose (mg/dL) 103 H (75-99) mg/dL Calcium 8.3 L (8.4-10.2) mg/dL Phosphorus (2.5-4.5) mg/dL Magnesium (1.6-2.3) mg/dL Procalcitonin 2.19 H (0.02-0.09) ng/mL 01/25/18 01/26/18 01/26/18 Range/Units 20:04 04:25 04:25 RBC 3.59 L (4.30-5.90) m/uL Hgb 11.6 L (13.0-17.5) gm/dL Hct 35.3 L (39.0-53.0) % Neutrophils # 7.8 H (1.3-7.7) k/uL Lymphocytes # 0.8 L (1.0-4.8) k/uL PT 13.2 H (9.0-12.0) sec INR 1.4 H (<1.2) APTT 78.9 H (22.0-30.0) sec Sodium (137-145) mmol/L Chloride (98-107) mmol/L Carbon Dioxide (22-30) mmol/L BUN (9-20) mg/dL Creatinine (0.66-1.25) mg/dL Glucose (74-99) mg/dL POC Glucose (mg/dL) 115 H (75-99) mg/dL Calcium (8.4-10.2) mg/dL Phosphorus (2.5-4.5) mg/dL Magnesium (1.6-2.3) mg/dL Procalcitonin (0.02-0.09) ng/mL 01/26/18 01/26/18 Range/Units 04:25 06:37 RBC (4.30-5.90) m/uL Hgb (13.0-17.5) gm/dL Hct (39.0-53.0) % Neutrophils # (1.3-7.7) k/uL Lymphocytes # (1.0-4.8) k/uL PT (9.0-12.0) sec INR (<1.2) APTT (22.0-30.0) sec Sodium 132 L (137-145) mmol/L Chloride (98-107) mmol/L Carbon Dioxide 14 L (22-30) mmol/L BUN 64 H (9-20) mg/dL Creatinine 2.80 H (0.66-1.25) mg/dL Glucose 137 H (74-99) mg/dL POC Glucose (mg/dL) 123 H (75-99) mg/dL Calcium 8.2 L (8.4-10.2) mg/dL Phosphorus 5.0 H (2.5-4.5) mg/dL Magnesium 2.4 H (1.6-2.3) mg/dL Procalcitonin (0.02-0.09) ng/mL Microbiology - Last 24 Hours (Table) 01/25/18 15:30 Gram Stain - Preliminary Foot - Right Wound Culture - Preliminary 01/25/18 15:30 Anaerobic Culture - Preliminary Foot - Right 01/22/18 18:00 Urine Culture - Final Urine,Voided Escherichia coli 01/23/18 11:55 Gram Stain - Final Foot - Right Wound Culture - Final Staphylococcus aureus Stenotrophomonas maltophilia 01/23/18 13:00 Anaerobic Culture - Preliminary Foot - Right Assessment and Plan Assessment: Assessment Acute sepsis with septic shock secondary to staph aureus bacteremia and E. coli urinary tract infection and right great toe infection Hypoxemic respiratory failure secondary to significant CHF and pulmonary edema. Diabetic foot ulcer, right great toe Community-acquired pneumonia, possible Acute non-ST; elevation myocardial infarction Acute kidney injury Left below the knee amputation History of hypertension History of hyperlipidemia History of osteoarthritis Peripheral vascular occlusive disease Plan: Plan dated 01/25/2018 The patient will remain on BiPAP at the current time. Blood gases show a PaO2 of 56, PaCO2 of 23, and pH is 7.47. Microbiology has been documented. Blood cultures are positive for Staphylococcus aureus and right great toe when cultures show presumptive staph. In addition, there is gram-negative bacilli in the urine. In addition, chest x-ray shows fluid overload with bilateral effusions. White count 10.8, hemoglobin 11.8, hematocrit 36.9, and platelet count normal. PT/INR were normal. I did discuss the importance of CODE STATUS a dressing with the nurses. We'll do that with the patient and the patient's family. I think would be very did a very difficult for this patient if he ended up on life support. Additional recommendations and suggestions forthcoming. Prognosis is guarded. Critical care time 32 minutes Plan dated 01/26/2018 The patient remains on 14 L high flow when not on BiPAP at the above settings. He is also on heparin via weightbase protocol, Lasix drip which is been increased to 50 mg an hour and a basic saline IV. Chest x-ray shows diffuse bilateral infiltrates and pleural effusions consistent with fluid overload. The gram-negative bacilli identified in a year yesterday has turned out to be Escherichia coli. In addition to the staff and the wound culture of the right foot/toe, they've identified Stenotrophomonas maltophilia. Lab data includes a white count of 9.6, hemoglobin 11.6, hematocrit 35.3 and a normal platelet count. PT 13.2, INR 1.4 and PTT is 78.9. Sodium 132 normal potassium and chloride CO2 14 and I gap 13 BUN and creatinine were 64 and 2.80, respectively. Medications and additional information is all reviewed. I've had another conversation with the patient to update him on his lungs. He understands his predicament. He appears a bit unrealistic in my opinion. Critical care time 33 minutes Time with Patient: Greater than 30
--- NOTE | 2018-01-26 08:55 | XR ---
EXAMINATION TYPE: XR chest 1V DATE OF EXAM: 01/26/2018 COMPARISON: 01/25/2018 HISTORY: Shortness of breath FINDINGS: There are bilateral pleural effusions with cardiomegaly and bibasilar infiltrate. There is a diffuse interstitial pattern. Atherosclerotic change of aorta. IMPRESSION: 1. Stable appearing diffuse bilateral airspace disease and pleural effusions. Differential diagnosis would include pulmonary edema versus diffuse pneumonia.
[2018-01-26] MEDS: SODIUM BICARBONATE TAB 650 MG TAB PO SCH ×2 (09:04→20:38)
[2018-01-26] MEDS: ATORVASTATIN 40 MG TAB PO SCH (09:05)
[2018-01-26] MEDS: METOPROLOL TARTRATE 12.5 MG TAB PO SCH ×2 (09:05→20:38)
[2018-01-26] MEDS: ASPIRIN 81 MG PO SCH (09:05)
[2018-01-26] MEDS: COLLAGENASE 250 UNIT/GM OINTMENT 30 GM TUBE TOPICAL SCH (09:06)
--- NOTE | 2018-01-26 09:45 | ECHOF ---
Referral Reason:Assess Heart Function MEASUREMENTS -------- HEIGHT: 185.4 cm WEIGHT: 92.5 kg BP: 98/52 IVSd: 1.2 cm (0.6 - 1.1) LVIDd: 5.3 cm (3.9 - 5.3) LVPWd: 1.0 cm (0.6 - 1.1) EDV(Teich): 138 ml IVSs: 1.7 cm LVIDs: 4.5 cm LVPWs: 1.3 cm %IVS Thck: 36 % ESV(Teich): 91 ml EF(Teich): 34 % %FS: 16 % SV(Teich): 47 ml LA Diam: 4.0 cm (2.7 - 3.8) RVIDd: 2.9 cm (< 3.3) IVC: 18.24 mm LALs A4C: 5.2 cm LAAs A4C: 20.0 cm LAESV A-L A4C: 66 ml LAESV MOD A4C: 55 ml LALs A2C: 4.9 cm LAAs A2C: 17.8 cm LAESV A-L A2C: 55 ml LAESV MOD A2C: 52 ml LAESV(A-L): 62 ml LAESV Index (A-L): 28.51 ml/m Ao Diam: 3.6 cm (2.0 - 3.7) AV Cusp: 2.2 cm (1.5 - 2.6) EPSS: 2.0 cm MV E Dav: 0.84 m/s MV DecT: 179 ms MV Dec [place]: 4.7 m/s MV A Dav: 0.95 m/s MV E/A Ratio: 0.88 MV PHT: 52 ms AV Vmax: 1.09 m/s AV maxP.76 mmHg TR Vmax: 2.72 m/s TR maxP.67 mmHg RAP: 5.00 mmHg RVSP: 34.67 mmHg MV EF SLOPE: 105.32 mm/s (70 - 150) MV EXCURSION: 18.05 mm (> 18.000) FINDINGS -------- Sinus rhythm. This was a technically adequate study. The left ventricular size is normal. There is borderline concentric left ventricular hypertrophy. Overall left ventricular systolic function is severely impaired with, an EF between 20 - 25 %. The right ventricle is normal in size. Normal LA size by volume 22+/-6 ml/m2. The right atrium is normal in size. There is mild to moderate aortic valve sclerosis. The mitral valve leaflets are mildly thickened. Mild mitral annular calcification present. Mild m itral regurgitation is present. Mild tricuspid regurgitation present. There is mild pulmonary hypertension. The right ventricular systolic pressure, as measured by Doppler, is 34.67mmHg. There is no pulmonic regurgitation present. The aortic root size is normal. Normal inferior vena cava with normal inspiratory collapse consistent with estimated right atrial pre ssure of 5 mmHg. There is no pericardial effusion. CONCLUSIONS -------- 1. Sinus rhythm. 2. This was a technically adequate study. 3. The left ventricular size is normal. 4. There is borderline concentric left ventricular hypertrophy. 5. Overall left ventricular systolic function is severely impaired with, an EF between 20 - 25 %. 6. The right ventricle is normal in size. 7. Normal LA size by volume 22+/-6 ml/m2. 8. The right atrium is normal in size. 9. There is mild to moderate aortic valve sclerosis. 10. The mitral valve leaflets are mildly thickened. 11. Mild mitral annular calcification present. 12. Mild mitral regurgitation is present. 13. Mild tricuspid regurgitation present. 14. There is mild pulmonary hypertension. 15. The right ventricular systolic pressure, as measured by Doppler, is 34.67mmHg. 16. There is no pulmonic regurgitation present. 17. The aortic root size is normal. 18. Normal inferior vena cava with normal inspiratory collapse consistent with estimated right atrial pressure of 5 mmHg. 19. There is no pericardial effusion. [employer] HAND: Jacqueline Valdivia RDCS
[2018-01-26] MEDS: SODIUM CHLORIDE 0.9% 1,000 ML IV SCH (10:28)
[2018-01-26 12:04] LABS: Glucose,Whole Blood 169 mg/dL (75-99)
[2018-01-26] MEDS: BISACODYL 5 MG TABLET.DR PO PRN (12:28)
[2018-01-26 14:24] VITALS: BMI 28.5
--- NOTE | 2018-01-26 16:44 | PN ---
PROGRESS NOTE The patient is seen for followup for acute kidney injury. He remains on Lasix drip, it was decreased yesterday to 10 mg an hour. However, urine output had dropped and therefore it was increased again to 15 mg an hour. Currently he is staying at about 100-105 mL/h. Overall, patient states he feels about the same. He did require BiPAP for about 5 hours last night. PHYSICAL EXAMINATION: Blood pressure this morning was 121/64, heart rate of 96 per minute. Patient is afebrile. Examination of the heart S1, S2. Examination of lungs bilateral breath sounds are heard. There are crackles heard bilateral bases. Abdomen is soft, nontender. Examination lower extremities shows edema right lower extremity. Patient has left BKA. Edema is 2+. There is some scrotal edema noted as well. LABS: Sodium 132, potassium 4.0, CO2 is 14, BUN 64, serum creatinine 2.8, hemoglobin 11.6 g/dL, phosphorus 5.0. ASSESSMENT: 1. Acute kidney injury mainly cardiorenal. Serum creatinine has increased to 2.8 today. The patient's urine output has improved and it remains good at about 100- 105 mL an hour. We can decrease the Lasix drip to 10 mg an hour. He is still volume overloaded and needs to be diuresed. If the urine output is well maintained, we can consider decreasing the drip to 5 mg an hour later on today or tomorrow morning. Chest x-ray, still shows significant congestion, maybe slightly worse from yesterday. 2. Non anion gap metabolic acidosis secondary to renal failure. Continue with oral sodium bicarb. 3. Cardiomyopathy with ejection fraction of 20-25 percent. 4. Respiratory failure, currently off of BiPAP. Chest x-ray shows worsening volume status. We will continue with IV diuresis. 5. E coli urinary tract infection. 6. Right foot wound with wound culture growing Stenotrophomonas maltophilia and staphylococcus aureus, which is MSSA. The patient is currently maintained on Cipro. He is status post vancomycin. PLAN: Continue with Lasix drip at 10 mg an hour. We will reassess regarding decreasing the drip depending on his urine output later on today. At this time, patient does need to be diuresed. We can consider adding dobutamine if renal function continues to worsen as ejection fraction is significantly low. MMODL / IJN: [id number] /
[2018-01-26 17:28] LABS: Glucose,Whole Blood 168 mg/dL (75-99)
[2018-01-26] MEDS: HEPARIN SOD,PORK IN 0.45% NACL 25,000 UNIT in 0.45% NACL 1 500ML.BAG IV SCH (18:01)
--- NOTE | 2018-01-26 18:02 | PN ---
PROGRESS NOTE Mr. Clarke came in with what seemed to be a pneumonia and Staph aureus in the blood. His sepsis and also elevated troponin suggested [id number] AL and a decreased ejection fraction of less than 25%. Cardiac-owen he is hemodynamically stable at this time. No overt heart failure. I am recommending that we first address his sepsis issue and then we will revisit the issue of cardiac status and consider repeating an echo once the acute septic phase is over. He is on a lot of diuretics. I am recommending that we can cut down the diuretics, but I will let the barrel handler handle this. Vitals are stable. There is JVD of 1 cm. S1, S2 heard normally. Short systolic murmur noted. Lungs reveal diminished air entry. Abdomen and lower extremity exam otherwise is unchanged. MMODL / IJN: [id number] /
--- NOTE | 2018-01-26 20:26 | PN ---
PROGRESS NOTE DATE OF SERVICE: 01/26/2018 PRESENT COMPLAINT: Tired. INTERVAL HISTORY: The patient is in the ICU, initially presented with sepsis and septic shock, felt to be from pneumonia, infected right big toe, possibly osteomyelitis and UTI. Patient also on IV heparin for an acute ND. Remains on a Lasix drip, cut back to 10 mg an hour by Nephrology this morning. The patient feels better, sitting up at the edge of the bed. Family is present, status post debridement of the right big toe. REVIEW OF SYSTEMS: Done for constitutional, cardiovascular, GI, pulmonary; relevant findings as above. CURRENT MEDICATIONS: Reviewed that include: 1. DuoNeb. 2. IV cefazolin. 3. P.o. Cipro. 4. Lasix drip at 10 mg an hour. 5. IV heparin. EXAMINATION: Temperature 97.7, pulse 62, respirations 26, blood pressure 96/55, pulse ox 92% on 13L. GENERAL APPEARANCE: Sitting at the edge of the bed, awake. EYES: Pupils equal. Conjunctivae normal. HEENT: External appearance of nose and ears normal. Oral cavity normal. NECK: JVD unable to assess. Mass not palpable. RESPIRATORY: Effort increased. LUNGS: Decreased breath sounds. CARDIOVASCULAR: First and second sounds normal. Edema in the right leg and dressing on the foot. ABDOMEN: Soft, nontender. Liver and spleen not palpable. PSYCHIATRY: Alert and oriented x3. Mood and affect normal. EXTREMITIES: Left below-knee amputation. INVESTIGATIONS: White count 9.6, hemoglobin 11.6. Potassium 4, BUN 64, creatinine 2.80. Chest x-ray film interpreted by ia shows significant pulmonary edema with a right-sided pleural effusion. ASSESSMENT: 1. Severe sepsis with septic shock on presentation with infective source, possibly osteomyelitis of the right big toe with cultures growing methicillin-sensitive Staphylococcus aureus and Stenotrophomonas maltophilia. 2. Sepsis with positive blood cultures with methicillin-sensitive Staphylococcus aureus. 3. Acute urinary tract infection. Cultures positive for Escherichia coli. 4. Possibly acute non-ST elevation myocardial infarction, present on admission. 5. Chronic left below-knee amputation. The patient normally has a prosthesis. 6. Diabetes mellitus type 2, chronically on insulin, uncontrolled with hypoglycemia. 7. Hyperlipidemia. 8. Acute kidney injury, could be acute tubular necrosis from sepsis, slowly worsening. 9. Acute lactic acidosis from sepsis. 10.Acute hypoxic respiratory failure from chronic obstructive pulmonary disease, pneumonia, congestive heart failure, slow to respond, still on high-flow oxygen. 11.status post debridement of the right big toe by Dr. White. PLAN: Patient's x-rays look rather wet, may be significant pleural effusion. Will get an ultrasound to see if this can be tapped. In the meantime, continue with antibiotics, also. Care was discussed with the patient's family at the bedside. Prognosis is guarded. IV heparin can be discontinued. The patient has no active chest pain. MMODL / IJN: [id number] /
[2018-01-26 20:33] LABS: Glucose,Whole Blood 206 mg/dL (75-99)
[2018-01-26] MEDS: INSULIN DETEMIR 100 UNIT/ML 10 ML VIAL SQ SCH (20:37)
[2018-01-26] MEDS: FAMOTIDINE 20 MG TAB PO SCH (20:37)
[2018-01-26] MEDS: LATANOPROST 0.005% OPHTH DROPS 2.5 ML BTL BOTH EYES SCH (20:38)
--- NOTE | 2018-01-26 22:23 | PN ---
PROGRESS NOTE DATE OF SERVICE: 01/26/2018 REASON FOR FOLLOWUP: MSSA sepsis secondary to right diabetic foot infection with osteomyelitis. INTERVAL HISTORY: The patient is currently afebrile. He seems to be breathing slightly comfortably. Denies significant chest pain. Occasional cough. No abdominal pain or diarrhea. PHYSICAL EXAMINATION: Blood pressure is 117/77 with a pulse of 103, temperature 97.5. He is 93% on non- rebreather. General description is an elderly male lying in bed in no distress. RESPIRATORY SYSTEM: Unlabored breathing. Clear to auscultation anteriorly. HEART: S1, S2. Regular rate and rhythm. ABDOMEN: Soft. No tenderness. The right foot is currently dressed up. No obvious drainage on the dressing. LABS: Hemoglobin 11.6, white count 9.6, BUN of 64, creatinine 2.80. Blood culture repeat has been negative so far. DIAGNOSTIC IMPRESSION AND PLAN: Patient with right diabetic foot infection with underlying osteomyelitis/septic arthritis with culture positive for methicillin-susceptible Staphylococcus aeruginosa and stenotrophomonas with methicillin-susceptible Staphylococcus aeruginosa bacteremia. Patient is currently covered with Cefazolin and Cipro, to continue for now while watching his clinical course closely. Continue with Santyl to the right foot wound. Continue supportive care. MMODL / IJN: [id number] /
[2018-01-27] MEDS ORDERED: FUROSEMIDE 10 MG/ML 4 ML VIAL IV STA (00:13)
[2018-01-27] MEDS: ACETAMINOPHEN TAB 325 MG TAB PO PRN (03:22)
[2018-01-27 04:48] LABS: Basophils % (A) 0 %; Eosinophils % (A) 0 %; HGB 11.7 gm/dL (13.0-17.5); Lymphocytes # (A) 0.8 k/uL (1.0-4.8); Lymphocytes % (A) 7 %; MCH 31.6 pg (25.0-35.0); MCHC 32.5 g/dL (31.0-37.0); MCV 97.2 fL (80.0-100.0); Monocytes # (A) 0.9 k/uL (0-1.0); Monocytes % (A) 9 %; Neutrophils # (A) 8.5 k/uL (1.3-7.7); Neutrophils % (A) 82 %; Platelet Count 228 k/uL (150-450); RDW 13.1 % (11.5-15.5); WBC 10.3 k/uL (3.8-10.6)
[2018-01-27 04:56] LABS: INR 1.5 (<1.2)
[2018-01-27 05:04] LABS: Calcium 8.5 mg/dL (8.4-10.2); Magnesium 2.3 mg/dL (1.6-2.3); Phosphorus 5.1 mg/dL (2.5-4.5); Potassium 3.7 mmol/L (3.5-5.1)
[2018-01-27] MEDS ORDERED: POTASSIUM CHLORIDE ER 20 MEQ TAB.ER PO STA (06:40)
[2018-01-27] MEDS: IPRATROPIUM-ALBUTEROL 3 ML NEB INHALATION SCH ×4 (06:52→19:38)
[2018-01-27 07:35] LABS: Glucose,Whole Blood 93 mg/dL (75-99)
[2018-01-27] MEDS: INSULIN ASPART 100 UNIT/ML 1 ML 10 ML VIAL SQ SCH ×4 (07:57→21:25)
--- NOTE | 2018-01-27 08:30 | XR ---
EXAMINATION TYPE: XR chest 1V DATE OF EXAM: 01/27/2018 COMPARISON: Prior chest x-ray 01/26/2018 HISTORY: Shortness of breath TECHNIQUE: Single frontal view of the chest is obtained. FINDINGS: Patient is rotated. Bilateral airspace disease persists. No evident pneumothorax. Suspect possible associated effusions. There are overlying cardiac leads. IMPRESSION: Findings similar to prior exam. Probable basilar effusions, correlate for congestive heart failure, pneumonia, follow-up recommended
[2018-01-27] MEDS: ceFAZolin IN SWFI 2 GM/20 ML SYRINGE IVP SCH ×2 (08:32→17:20)
[2018-01-27] MEDS: ASPIRIN 81 MG PO SCH (08:32)
[2018-01-27] MEDS: ATORVASTATIN 40 MG TAB PO SCH (08:32)
[2018-01-27] MEDS: METOPROLOL TARTRATE 12.5 MG TAB PO SCH ×2 (08:32→21:22)
[2018-01-27] MEDS: FAMOTIDINE 20 MG TAB PO SCH (08:32)
[2018-01-27] MEDS: SODIUM BICARBONATE TAB 650 MG TAB PO SCH ×2 (08:32→21:22)
[2018-01-27] MEDS: FUROSEMIDE 10 MG/ML 4 ML VIAL IV SCH ×2 (09:17→21:21)
[2018-01-27] MEDS: DOBUTamine DRIP 500 MG in DEXTROSE/WATER 1 250ML.BAG IV SCH (09:18)
--- NOTE | 2018-01-27 10:03 | P.PN ---
Subjective Progress Note Date: 01/27/18 87-year-old male patient, known history of congestion heart failure with an ejection fraction of 20-25%, on addition to history of diabetes, hypertension and hyperlipidemia and peripheral vascular disease with below-knee amputation on the left. The patient presented to the hospital because of generalized weakness and some shortness of breath. In the emergency department the cardiac panel was positive and the patient ruled in for an acute non-ST segment elevation myocardial infarction. He had a EKG that showed a left bundle branch block pattern that was of a new onset. The patient was placed on IV heparin. The patient was placed on a Lasix drip however the patient gradually went into acute kidney injury and this was attributed to cardiorenal factors. Serum creatinine gradually came up and there was marked improvement in the urine output. The patient continued to show signs of volume overload. Subsequent chest x-ray showed large bilateral pleural effusion right more than left. At the same time that, the patient was getting short of breath and on and off he was requiring BiPAP for respiratory support. This morning he is on 15 L of oxygen by nasal cannula. The patient was also suspected to have an underlying pneumonia and the patient was covered with a combination of vancomycin and Rocephin and Zithromax. Subsequent septic workup showed a E. coli urinary tract infection and the patient was also found to have MSSA in the blood and MSSA in the left foot wound in addition to stenotrophomonas. The right foot has already been debrided by vascular surgery. Based on this, antibiotic just was were done and the patient was placed on a combination of Salt 2 g every 8 hours and ciprofloxacin 500 breath mg every 18 hours. Earlier this morning, the patient was taken off the Lasix drip and the patient was placed on Lasix 40 g every 12 hours. The patient was also started on dobutamine 2.5 g per KG per minute. Objective - Vital Signs Vital signs: Vital Signs Temp 97.6 F 01/27/18 08:00 Pulse 85 01/27/18 08:00 Resp 23 01/27/18 08:00 BP 116/69 01/27/18 08:00 Pulse Ox 99 01/27/18 08:00 Intake & Output 01/26/18 01/27/18 01/27/18 18:59 06:59 18:59 Intake Total 961.667 120 20 Output Total 1145 1115 275 Balance -183.333 -995 -255 Weight 97.9 kg 97.4 kg Intake: IV 130 120 20 Sodium Chloride 0.9% 1, 130 120 20 000 ml @ 10 mls/hr IV . Q24H [facility] Rx#:[id number] Intake, IV Titration 151.667 Amount Furosemide 250 mg In 151.667 Sodium Chloride 0.9% 225 ml @ 5 MG/HR 5 mls/hr IVP .Q24H [facility] Rx#:[id number] Oral 680 Output: Urine 1145 1115 275 Other: Voiding Method Indwelling Catheter Indwelling Catheter - Exam General appearance: alert, in no apparent distress very pleasant, basically asymptomatic during my evaluation. Head exam: atraumatic, normocephalic Eye exam: normal appearance, PERRLA, EOMI, no icterus. ENT exam: mucous membranes dry Neck exam: normal inspection. Absent: tenderness, meningismus no neck masses, no JVD. Respiratory exam: Diminished breath sound bilaterally right more than left along with dullness to percussion. Crackles, no rhonchi, no wheezes. Cardiovascular Exam: regular rate, normal rhythm no S3 gallop, no murmur was appreciated. GI/Abdominal exam: soft. Nontender, no megaly, no rebound, no guarding. Extremities exam:normal inspection, normal capillary refill. Absent: pedal edema there is evidence of left below knee amputation. There is also evidence of deep ulcer at the base of the right big toe medially. Some discharge noted. The patient has a below knee amputation on the left Neurological exam: Alert, oriented 3, no gross focal neurologic deficit. Psychiatric exam: normal affect, normal mood, normal mental status examination. Skin exam: Present: 2.5 cm ulcer at the base of the right big toe medially. With serous drainage noted. - Labs CBC & Chem 7: 01/27/18 04:19 01/27/18 04:19 Labs: Abnormal Lab Results - Last 24 Hours (Table) 01/26/18 01/26/18 01/26/18 Range/Units 12:01 12:06 17:26 RBC (4.30-5.90) m/uL Hgb (13.0-17.5) gm/dL Hct (39.0-53.0) % Neutrophils # (1.3-7.7) k/uL Lymphocytes # (1.0-4.8) k/uL PT (9.0-12.0) sec INR (<1.2) APTT 56.4 H (22.0-30.0) sec Sodium (137-145) mmol/L Carbon Dioxide (22-30) mmol/L BUN (9-20) mg/dL Creatinine (0.66-1.25) mg/dL Glucose (74-99) mg/dL POC Glucose (mg/dL) 169 H 168 H (75-99) mg/dL Phosphorus (2.5-4.5) mg/dL 01/26/18 01/27/18 01/27/18 Range/Units 20:31 04:19 04:19 RBC 3.70 L (4.30-5.90) m/uL Hgb 11.7 L (13.0-17.5) gm/dL Hct 36.0 L (39.0-53.0) % Neutrophils # 8.5 H (1.3-7.7) k/uL Lymphocytes # 0.8 L (1.0-4.8) k/uL PT 14.0 H (9.0-12.0) sec INR 1.5 H (<1.2) APTT (22.0-30.0) sec Sodium (137-145) mmol/L Carbon Dioxide (22-30) mmol/L BUN (9-20) mg/dL Creatinine (0.66-1.25) mg/dL Glucose (74-99) mg/dL POC Glucose (mg/dL) 206 H (75-99) mg/dL Phosphorus (2.5-4.5) mg/dL 01/27/18 Range/Units 04:19 RBC (4.30-5.90) m/uL Hgb (13.0-17.5) gm/dL Hct (39.0-53.0) % Neutrophils # (1.3-7.7) k/uL Lymphocytes # (1.0-4.8) k/uL PT (9.0-12.0) sec INR (<1.2) APTT (22.0-30.0) sec Sodium 135 L (137-145) mmol/L Carbon Dioxide 16 L (22-30) mmol/L BUN 77 H (9-20) mg/dL Creatinine 3.31 H (0.66-1.25) mg/dL Glucose 102 H (74-99) mg/dL POC Glucose (mg/dL) (75-99) mg/dL Phosphorus 5.1 H (2.5-4.5) mg/dL Microbiology - Last 24 Hours (Table) 01/25/18 15:30 Gram Stain - Preliminary Foot - Right Wound Culture - Preliminary Presumptive Staph aureus 01/25/18 18:13 Blood Culture - Preliminary Blood No Growth after 24 hours Assessment and Plan Plan: Assessment 1 acute hypoxic respiratory failure with development of large bilateral pleural effusion right more than left and currently the patient is on 50 L of oxygen by nasal cannula. This is most likely secondary to CHF and volume overload in the setting of heart failure and acute kidney injury 2 systolic heart failure with ejection fraction of 20-25% 3 acute kidney injury with progressive worsening in the renal function. The patient has been on Lasix drip and over the past 24 hours the patient started producing better urine output. The patient has been a positive fluid balance earlier. This is likely a acute kidney injury secondary to ATN/cardiorenal factors 4 staphylococcal septicemia/MSSA likely secondary right foot infection, post debridement and the patient is currently on IV Solu 5 E. coli urine checked infection 6 coronary artery disease with an acute non-ST segment elevation myocardial infarction 7 left bundle branch block pattern 8 diabetic foot ulcer involving the right foot post debridement with cultures indicating stenotrophomonas and MSSA 9 peripheral vascular disease with left below-knee amputation 10 diabetes mellitus 11 hypertension 12 hyperlipidemia 13 osteoarthritis Plan Agree with dobutamine. Continue diuretics. Monitor renal function. Proceed with thoracentesis of the right lung for palliative reasons to give the patient symptomatically relieved nontender the patient is an acute hypoxic respiratory failure with high oxygen requirements. Continue current antibiotic coverage. Patient appropriate antibiotic coverage regarding MSSA septicemia and diabetic foot ulcer and infection. We'll continue to follow. Condition is critical. Case was discussed with infectious disease. ID is on the case. Nephrology is also on the case.
[2018-01-27 10:26] LABS: Total Protein 5.3 g/dL (6.3-8.2)
--- NOTE | 2018-01-27 10:55 | XR ---
EXAMINATION TYPE: XR chest 1V portable DATE OF EXAM: 01/27/2018 COMPARISON: Prior chest 01/27/2018 HISTORY: Postthoracentesis TECHNIQUE: Single frontal view of the chest is obtained. FINDINGS: Interval improved aeration at the right lung base. No evident pneumothorax. Bilateral airs pace disease persists. IMPRESSION: No evident complication status post thoracentesis.
--- NOTE | 2018-01-27 11:55 | US ---
EXAMINATION TYPE: US chest DATE OF EXAM: 01/27/2018 COMPARISON: Chest x-ray dated 01/27/2018 CLINICAL HISTORY: Abnormal chest x-ray Bilateral pleural effusions TECHNIQUE: Targeted ultrasound of the posterior lower bilateral hemithoraces EXAM MEASUREMENTS: Right Pleural Effusion pocket size: 4.4 cm Right skin surface to fluid distance: 2.2 cm Left Pleural Effusion pocket size: 2.4 cm Right side marked for possible thoracentesis outside the dept. Pulmonologists are able to review the images in the patient?s EMR. IMPRESSIONS: Bilateral pleural effusions.
[2018-01-27 11:59] LABS: Glucose,Whole Blood 216 mg/dL (75-99)
--- NOTE | 2018-01-27 12:10 | P.PN ---
Subjective Patient is seen in follow-up for acute kidney injury. Renal function has been worsening with creatinine up to 3.3 today. Lasix drip was discontinued this morning and is currently maintained on 40 mg IV twice daily. He is also on IV dobutamine. Patient has systolic CHF with ejection fraction of 25%. Patient underwent right-sided thoracentesis this morning with 1.6 L drained. He is also noted to have a toe infection and is status post debridement. Patient is currently sitting up in bed. He feels much better after thoracentesis. He is nonoliguric. Vital signs are stable. General: The patient appeared well nourished and normally developed. HEENT: Head exam is unremarkable. Neck is without jugular venous distension. LUNGS: Lungs are clear to auscultation and percussion. Breath sounds decreased. HEART: Rate and Rhythm are regular. First and second heart sounds normal. No murmurs, rubs or gallops. ABDOMEN: Abdominal exam reveals normal bowel sounds. Non-tender and non- distended. No evidence of peritonitis. EXTREMITITES: No clubbing, cyanosis, or edema. Objective - Vital Signs Vital signs: Vital Signs Temp 97.6 F 01/27/18 08:00 Pulse 78 01/27/18 11:06 Resp 18 01/27/18 11:00 BP 119/60 01/27/18 11:00 Pulse Ox 100 01/27/18 11:00 Intake & Output 01/26/18 01/27/18 01/27/18 18:59 06:59 18:59 Intake Total 961.667 120 50 Output Total 1145 1115 637 Balance -183.333 -995 -587 Weight 97.9 kg 97.4 kg Intake: IV 130 120 50 Sodium Chloride 0.9% 1, 130 120 50 000 ml @ 10 mls/hr IV . Q24H [facility] Rx#:[id number] Intake, IV Titration 151.667 Amount Furosemide 250 mg In 151.667 Sodium Chloride 0.9% 225 ml @ 5 MG/HR 5 mls/hr IVP .Q24H [facility] Rx#:[id number] Oral 680 Output: Urine 1145 1115 637 Other: Voiding Method Indwelling Catheter Indwelling Catheter - Labs CBC & Chem 7: 01/27/18 04:19 01/27/18 04:19 Labs: Abnormal Lab Results - Last 24 Hours (Table) 01/26/18 01/26/18 01/26/18 Range/Units 12:06 17:26 20:31 RBC (4.30-5.90) m/uL Hgb (13.0-17.5) gm/dL Hct (39.0-53.0) % Neutrophils # (1.3-7.7) k/uL Lymphocytes # (1.0-4.8) k/uL PT (9.0-12.0) sec INR (<1.2) APTT 56.4 H (22.0-30.0) sec Sodium (137-145) mmol/L Carbon Dioxide (22-30) mmol/L BUN (9-20) mg/dL Creatinine (0.66-1.25) mg/dL Glucose (74-99) mg/dL POC Glucose (mg/dL) 168 H 206 H (75-99) mg/dL Phosphorus (2.5-4.5) mg/dL Lactate Dehydrogenase (313-618) U/L Total Protein (6.3-8.2) g/dL 01/27/18 01/27/18 01/27/18 Range/Units 04:19 04:19 04:19 RBC 3.70 L (4.30-5.90) m/uL Hgb 11.7 L (13.0-17.5) gm/dL Hct 36.0 L (39.0-53.0) % Neutrophils # 8.5 H (1.3-7.7) k/uL Lymphocytes # 0.8 L (1.0-4.8) k/uL PT 14.0 H (9.0-12.0) sec INR 1.5 H (<1.2) APTT (22.0-30.0) sec Sodium 135 L (137-145) mmol/L Carbon Dioxide 16 L (22-30) mmol/L BUN 77 H (9-20) mg/dL Creatinine 3.31 H (0.66-1.25) mg/dL Glucose 102 H (74-99) mg/dL POC Glucose (mg/dL) (75-99) mg/dL Phosphorus 5.1 H (2.5-4.5) mg/dL Lactate Dehydrogenase (313-618) U/L Total Protein (6.3-8.2) g/dL 01/27/18 01/27/18 Range/Units 04:19 11:57 RBC (4.30-5.90) m/uL Hgb (13.0-17.5) gm/dL Hct (39.0-53.0) % Neutrophils # (1.3-7.7) k/uL Lymphocytes # (1.0-4.8) k/uL PT (9.0-12.0) sec INR (<1.2) APTT (22.0-30.0) sec Sodium (137-145) mmol/L Carbon Dioxide (22-30) mmol/L BUN (9-20) mg/dL Creatinine (0.66-1.25) mg/dL Glucose (74-99) mg/dL POC Glucose (mg/dL) 216 H (75-99) mg/dL Phosphorus (2.5-4.5) mg/dL Lactate Dehydrogenase 707 H (313-618) U/L Total Protein 5.3 L (6.3-8.2) g/dL Microbiology - Last 24 Hours (Table) 01/25/18 15:30 Gram Stain - Preliminary Foot - Right Wound Culture - Preliminary Presumptive Staph aureus 01/25/18 18:13 Blood Culture - Preliminary Blood No Growth after 24 hours Assessment and Plan Plan: Assessment: 1. Acute kidney injury secondary to ATN secondary to cardiorenal syndrome. Creatinine up to 3.3 today. Unclear as to what his baseline renal function is. No evidence of hydronephrosis noted on renal ultrasound. 2. Sepsis secondary to right toe wound as well as staph aureus bacteremia. Maintain on antibiotics per infectious disease recommendations. S/p debridement. 3. Metabolic acidosis secondary to acute kidney injury. 4. Diabetes mellitus. 5. Volume overload. 6. Systolic CHF. Currently decompensated. 7. Pleural effusion status post right-sided thoracentesis today with 1.6 L drained. Plan: Continue with IV Lasix and dobutamine. Potential left-sided thoracentesis tomorrow. Continue to monitor renal function and urine output closely. Maintain bicarbonate 1300 mg twice daily. Avoid nephrotoxic agents and hypotensive episodes.
--- NOTE | 2018-01-27 13:06 | PCN ---
PROCEDURE NOTE THORACENTESIS NOTE: INDICATION: Pleural effusion. A time-out was completed verifying correct patient, procedure, site, positioning , and implant (s) or special equipment if applicable. Patient was positioned, prepped and draped in usual sterile fashion. Lidocaine was used to anesthetize the area. A Thoracentesis catheter was introduced into the pleural space and fluid was removed. Blood loss was none. A chest x-ray was ordered to evaluate for pneumothorax. Total Fluid Removed was 1.7 L of turbid yellowish pleural effusion. Color of Fluid: Turbid Patient tolerated the procedure well and there were no complications. No bedside complications or bleeding. Chest x-ray is to follow. MMODL / IJN: [id number] /
[2018-01-27] MEDS: SODIUM CHLORIDE 0.9% 1,000 ML IV SCH (13:10)
[2018-01-27] MEDS: CIPROFLOXACIN HCL 500 MG TAB PO SCH (14:14)
[2018-01-27 14:38] LABS: Appearance,BF Hazy; Nucleated Cells, Body Fluid 190 /uL; RBC, Body Fluid 790 /uL
[2018-01-27 14:47] LABS: Mononuclear WBC,Body Fluid 14 %; Polynuclear WBC,Body Fluid 86 %; Total Cells Counted,Body Fluid 100
--- NOTE | 2018-01-27 15:27 | PN ---
PROGRESS NOTE This gentleman has history of bacteremia. Cardiac-owen is stable. He has decreased LV function. His urine output is low and his ejection fraction is also quite low. His BUN, creatinine has been increasing. I am recommending that we start him on a dobutamine drip at 2.5 mcg and gradually increase to 5 mcg and decrease the Lasix to 40 mg q.12 hours IV push and stop the Lasix drip at this time. Prognosis remains guarded. Patient has poor ejection fraction, acute kidney injury as well and worsening renal failure. Plan is therefore to start dobutamine drip, decrease the Lasix to 40 mg q.12 hours and see how he does. Physical exam revealed blood pressure of 108/70, pulse rate is about 80, regular rhythm noted. JVD is evident. S1-S2 heard normally with a short systolic murmur. Lungs reveal diminished air entry with fine rales over both bases. Abdomen and lower extremity exam findings are unchanged. Prognosis remains guarded. MMODL / IJN: [id number] /
[2018-01-27 17:07] LABS: Glucose,Whole Blood 200 mg/dL (75-99)
--- NOTE | 2018-01-27 17:24 | PN ---
PROGRESS NOTE DATE OF SERVICE: 01/27/2018 REASON FOR FOLLOWUP: MSSA bacteremia secondary to right diabetic foot infection and osteomyelitis. INTERVAL HISTORY: The patient is currently afebrile. He is breathing comfortably. Denies significant chest pain. Occasional cough. No abdominal pain. Denies pain to the right foot area. No diarrhea with antibiotic therapy. PHYSICAL EXAMINATION: Blood pressure 107/59 with a pulse of 105, temperature 98. He is 98% on 10 L high-flow oxygen. General description is an elderly male up in the bed in no distress. RESPIRATORY SYSTEM: Unlabored breathing with decreased breath sounds at the bases. No wheeze. HEART: S1, S2. Regular rate and rhythm. ABDOMEN: Soft. No tenderness. Right foot is currently dressed up. No obvious drainage on the dressing. LABS: Hemoglobin 11.7, white count 10.3, BUN of 77, creatinine 3.31. DIAGNOSTIC IMPRESSION AND PLAN: Patient admitted to hospital with sepsis, source right foot osteomyelitis, acute, secondary to methicillin-susceptible Staphylococcus aeruginosa, and culture also positive for stenotrophomonas with underlying diabetes mellitus. The patient is currently covered with cefazolin and Cipro. That will be continued. Local wound care to continue with Santyl. Family present at bedside. Their questions were answered. MMODL / IJN: [id number] /
[2018-01-27] MEDS: COLLAGENASE 250 UNIT/GM OINTMENT 30 GM TUBE TOPICAL SCH (17:25)
[2018-01-27 17:36] LABS: Total Protein, Body Fluid 2000 mg/dL
[2018-01-27] MEDS: BISACODYL 5 MG TABLET.DR PO PRN (19:15)
[2018-01-27] MEDS: LATANOPROST 0.005% OPHTH DROPS 2.5 ML BTL BOTH EYES SCH (21:22)
[2018-01-27] MEDS: INSULIN DETEMIR 100 UNIT/ML 10 ML VIAL SQ SCH (21:25)
[2018-01-27 21:27] LABS: Glucose,Whole Blood 225 mg/dL (75-99)
--- NOTE | 2018-01-27 23:51 | PN ---
PROGRESS NOTE DATE OF SERVICE: 01/27/2018 PRESENTING COMPLAINT: Tired, short of breath. INTERVAL HISTORY: Patient remains in the ICU. He initially presented with sepsis and septic shock, felt to be a combination of pneumonia, infected right big toe, possibly osteomyelitis and UTI. He also had debridement of the right big toe. Also patient had acute SC, for which IV heparin was discontinued yesterday. Patient's Lasix drip was discontinued. Patient is eating better. Edema in the lower extremities is going down. Also on dobutamine drip. PHYSICAL EXAMINATION: Temperature 98, pulse 106, respiration 24, blood pressure 116/60, pulse ox 99% on 10 L high-flow. GENERAL APPEARANCE: Sitting up, awake, tired-appearing. EYES: Pupils equal. Conjunctivae normal. HEENT: External appearance of nose and ears normal. Oral cavity normal. NECK: JVD not raised. Mass not palpable. RESPIRATORY: Effort increased. LUNGS: Diminished breath sounds. CARDIOVASCULAR: First and second sounds normal. Edema in the right leg decreased. Dressing on the foot. ABDOMEN: Soft, non-tender. Liver and spleen not palpable. PSYCHIATRY: Alert and oriented x3. Mood and affect normal. EXTREMITIES: Left below-knee amputation. INVESTIGATIONS: White count 10.3, hemoglobin 11.7, potassium 3.7, BUN 77, creatinine 3.31. Chest ultrasound had been marked for the pleural tap. ASSESSMENT: 1. Severe sepsis, septic shock on presentation, with infected source, possibly osteomyelitis of the right big toe with cultures growing methicillin-susceptible Staphylococcus aeruginosa and Stenotrophomonas maltophilia. 2. Sepsis with positive blood cultures with methicillin-susceptible Staphylococcus aeruginosa. 3. Acute urinary tract infection; cultures positive for Escherichia coli. 4. Possible acute [id number] myocardial infarction, present on admission. 5. Chronic left below-knee amputation. Patient normally has a prosthesis. 6. Diabetes mellitus, type 2, chronically on insulin, uncontrolled with hypoglycemia. 7. Hyperlipidemia. 8. Acute kidney injury; could be acute tubular necrosis versus from sepsis. Continues to worsen. 9. Acute lactic acid from sepsis. 10.Acute hypoxic respiratory failure from chronic obstructive pulmonary disease, pneumonia and congestive heart failure. Patient remains on high-flow oxygen at 10 L. Slow to respond. 11.Status post debridement of the right big toe by Dr. White. 12.Right thoracentesis; 1700 mL of fluid was removed. PLAN: Care was discussed with the patient and family at the bedside. Continue current medication and treatment plan that includes IV Ancef, p.o. Cipro, dobutamine, IV Lasix 40 q.12, p.o. bicarb. Care was discussed with the patient and family at the bedside. Prognosis is guarded. Follow closely. MMODL / IJN: [id number] /
[2018-01-28] MEDS: ceFAZolin IN SWFI 2 GM/20 ML SYRINGE IVP SCH ×3 (00:14→17:28)
[2018-01-28] MEDS: DOBUTamine DRIP 500 MG in DEXTROSE/WATER 1 250ML.BAG IV SCH ×2 (00:14→19:16)
[2018-01-28 04:21] LABS: INR 1.7 (<1.2); Prothrombin Time 15.2 sec (9.0-12.0)
[2018-01-28 04:28] LABS: Calcium 8.5 mg/dL (8.4-10.2); Magnesium 2.4 mg/dL (1.6-2.3); Phosphorus 5.4 mg/dL (2.5-4.5); Potassium 3.9 mmol/L (3.5-5.1)
[2018-01-28 04:34] LABS: Basophils % (A) 0 %; Eosinophils # (A) 0.1 k/uL (0-0.7); Eosinophils % (A) 1 %; HCT 34.8 % (39.0-53.0); HGB 11.3 gm/dL (13.0-17.5); Lymphocytes # (A) 0.8 k/uL (1.0-4.8); Lymphocytes % (A) 8 %; MCH 31.8 pg (25.0-35.0); MCHC 32.4 g/dL (31.0-37.0); MCV 98.1 fL (80.0-100.0); Mean Platelet Volume 7.9; Monocytes # (A) 0.8 k/uL (0-1.0); Monocytes % (A) 9 %; Neutrophils % (A) 82 %; Platelet Count 201 k/uL (150-450); RBC 3.55 m/uL (4.30-5.90); RDW 13.2 % (11.5-15.5); WBC 9.8 k/uL (3.8-10.6)
[2018-01-28] MEDS ORDERED: POTASSIUM CHLORIDE ER 20 MEQ TAB.ER PO STA (06:44)
[2018-01-28 07:27] LABS: Glucose,Whole Blood 136 mg/dL (75-99)
[2018-01-28] MEDS: IPRATROPIUM-ALBUTEROL 3 ML NEB INHALATION SCH ×4 (07:49→19:56)
[2018-01-28] MEDS: INSULIN ASPART 100 UNIT/ML 1 ML 10 ML VIAL SQ SCH ×4 (08:52→20:52)
[2018-01-28] MEDS: FAMOTIDINE 20 MG TAB PO SCH (08:59)
[2018-01-28] MEDS: FUROSEMIDE 10 MG/ML 4 ML VIAL IV SCH (08:59)
[2018-01-28] MEDS: METOPROLOL TARTRATE 12.5 MG TAB PO SCH ×2 (08:59→20:54)
[2018-01-28] MEDS: SODIUM BICARBONATE TAB 650 MG TAB PO SCH ×2 (08:59→20:54)
[2018-01-28] MEDS: ASPIRIN 81 MG PO SCH (09:00)
[2018-01-28] MEDS: ATORVASTATIN 40 MG TAB PO SCH (09:00)
[2018-01-28] MEDS ORDERED: ENOXAPARIN 40 MG/0.4 ML SYRINGE SQ SCH (09:00)
[2018-01-28] MEDS: CIPROFLOXACIN HCL 500 MG TAB PO SCH (09:01)
--- NOTE | 2018-01-28 09:03 | XR ---
EXAMINATION TYPE: XR chest 1V portable DATE OF EXAM: 01/28/2018 COMPARISON: Prior chest 01/27/2018 HISTORY: Follow-up congestive heart failure TECHNIQUE: Single frontal view of the chest is obtained. FINDINGS: Bilateral airspace disease is present. No evident pneumothorax. Retrocardiac density persi sts. Blunting of the right costophrenic angle again noted. IMPRESSION: There may be worsening pulmonary edema. There are differences in technique. Follow-up re commended.
[2018-01-28] MEDS: COLLAGENASE 250 UNIT/GM OINTMENT 30 GM TUBE TOPICAL SCH (11:12)
[2018-01-28 12:14] LABS: Glucose,Whole Blood 132 mg/dL (75-99)
--- NOTE | 2018-01-28 13:16 | PN ---
PROGRESS NOTE DATE OF SERVICE: 01/28/2018 REASON FOR FOLLOWUP: MSSA bacteremia and right foot acute osteomyelitis with diabetes mellitus. Culture positive for MSSA and Stenotrophomonas. INTERVAL HISTORY: The patient is currently afebrile. He is breathing comfortably. Denies having any chest pain or shortness of breath. Occasional cough. No abdominal pain. No pain to the right foot area. No diarrhea. The patient did have a bowel movement for the last few days. PHYSICAL EXAMINATION: Blood pressure 107/57 with a pulse of 100, temperature 97.8. He is 98% on 8 L high- flow oxygen. General description is an elderly male, lying in bed in no distress RESPIRATORY SYSTEM: Unlabored breathing, clear to auscultation anteriorly. HEART: S1, S2. Regular rate and rhythm. ABDOMEN: is right foot congestion. No drainage on the dressing. LABS: Hemoglobin 11.2, white count of 9.8. BUN of 90, creatinine 3.50. DIAGNOSTIC IMPRESSION AND PLAN: 1. Patient with Methicillin-susceptible Staphylococcus aureus bacteremia secondary to the right foot osteomyelitis. 2. The patient with right foot osteomyelitis at the base of his right big toe had medial wound culture positive for Methicillin-susceptible Staphylococcus aureus, resistant to 4 months. Patient is currently on cefazolin 2 g q.8 hours. One is possible. Continue local care to continue with the Santyl. Continue supportive care. MMREYNALDOL / CHUCKN: [id number] /
--- NOTE | 2018-01-28 14:16 | P.PN ---
Subjective Progress Note Date: 01/28/18 87-year-old male patient, known history of congestion heart failure with an ejection fraction of 20-25%, on addition to history of diabetes, hypertension and hyperlipidemia and peripheral vascular disease with below-knee amputation on the left. The patient presented to the hospital because of generalized weakness and some shortness of breath. In the emergency department the cardiac panel was positive and the patient ruled in for an acute non-ST segment elevation myocardial infarction. He had a EKG that showed a left bundle branch block pattern that was of a new onset. The patient was placed on IV heparin. The patient was placed on a Lasix drip however the patient gradually went into acute kidney injury and this was attributed to cardiorenal factors. Serum creatinine gradually came up and there was marked improvement in the urine output. The patient continued to show signs of volume overload. Subsequent chest x-ray showed large bilateral pleural effusion right more than left. At the same time that, the patient was getting short of breath and on and off he was requiring BiPAP for respiratory support. This morning he is on 15 L of oxygen by nasal cannula. The patient was also suspected to have an underlying pneumonia and the patient was covered with a combination of vancomycin and Rocephin and Zithromax. Subsequent septic workup showed a E. coli urinary tract infection and the patient was also found to have MSSA in the blood and MSSA in the left foot wound in addition to stenotrophomonas. The right foot has already been debrided by vascular surgery. Based on this, antibiotic just was were done and the patient was placed on a combination of Salt 2 g every 8 hours and ciprofloxacin 500 breath mg every 18 hours. Earlier this morning, the patient was taken off the Lasix drip and the patient was placed on Lasix 40 g every 12 hours. The patient was also started on dobutamine 2.5 g per KG per minute. 01/28/2018 the patient is feeling better. Oxidation is improved and the patient is being weaned off the FiO2 and this morning he is down to 6 L and his pulse ox is around 100%. The patient had a large volume thoracentesis yesterday and the fluid is most likely a chain state with a total protein of 2 g and an LDH of 128. This is consistent with CHF. Today's chest x-ray still showing some congestion and some residual pleural effusion on the left. The patient is currently on a combination of dobutamine drip and Lasix. Lasix and a dose of 43 g IV push every 12 hours. He is producing good amount of urine output. His net fluid balance over the past 24 hours is in the order of 1.1 L and another 2.3 L since this morning. As such is improving his urine output and the patient's is doing well. The creatinine today's at 3.5 and a Lasix dose was dropped down to 40 g every 12 hours. No chest pain. Still on same antibiotic coverage regarding his septic event as the patient had a MSSA bacteremia from a diabetic wound infection. He has undergone the appropriate debridement. He remains on a combination of ciprofloxacin and Kefzol as an antibiotic coverage. No altered mentation. No chest pain. Tolerating diet. No nausea or vomiting. No other complaints otherwise. He has a component of anion gap metabolic acidosis of bicarb level of 19. Objective - Vital Signs Vital signs: Vital Signs Temp 97.6 F 01/28/18 12:00 Pulse 90 01/28/18 12:00 Resp 17 01/28/18 12:00 BP 102/67 01/28/18 12:00 Pulse Ox 100 01/28/18 12:00 Intake & Output 01/27/18 01/28/18 01/28/18 18:59 06:59 18:59 Intake Total 120 229.013 60 Output Total 1448 1215 565 Balance -1328 -985.987 -505 Weight 98.2 kg 98.2 kg Intake: IV 120 120 60 Sodium Chloride 0.9% 1, 120 120 60 000 ml @ 10 mls/hr IV . Q24H [facility] Rx#:[id number] Intake, IV Titration 109.013 Amount DOBUTamine DRIP 500 mg In 109.013 Dextrose/Water 1 250ml. bag @ 2.5 MCG/KG/MIN 7.3 mls/hr IV .Q0M [facility] Rx#: [id number] Output: Urine 1448 1215 565 Other: Voiding Method Indwelling Catheter Indwelling Catheter Indwelling Catheter - Exam General appearance: alert, in no apparent distress very pleasant, basically asymptomatic during my evaluation. Head exam: atraumatic, normocephalic Eye exam: normal appearance, PERRLA, EOMI, no icterus. ENT exam: mucous membranes dry Neck exam: normal inspection. Absent: tenderness, meningismus no neck masses, no JVD. Respiratory exam: Improvement in the sound bilaterally with some minimal residual dullness in the left lung base.. Crackles, no rhonchi, no wheezes. Cardiovascular Exam: regular rate, normal rhythm no S3 gallop, no murmur was appreciated. GI/Abdominal exam: soft. Nontender, no megaly, no rebound, no guarding. Extremities exam:normal inspection, normal capillary refill. Absent: pedal edema there is evidence of left below knee amputation. There is also evidence of deep ulcer at the base of the right big toe medially. Some discharge noted. The patient has a below knee amputation on the left Neurological exam: Alert, oriented 3, no gross focal neurologic deficit. Psychiatric exam: normal affect, normal mood, normal mental status examination. Skin exam: Present: 2.5 cm ulcer at the base of the right big toe medially. With serous drainage noted. - Labs CBC & Chem 7: 01/28/18 03:27 01/28/18 03:31 Labs: Abnormal Lab Results - Last 24 Hours (Table) 01/27/18 01/27/18 01/28/18 Range/Units 17:05 21:24 03:27 RBC 3.55 L (4.30-5.90) m/uL Hgb 11.3 L (13.0-17.5) gm/dL Hct 34.8 L (39.0-53.0) % Neutrophils # 8.0 H (1.3-7.7) k/uL Lymphocytes # 0.8 L (1.0-4.8) k/uL PT (9.0-12.0) sec INR (<1.2) Sodium (137-145) mmol/L Carbon Dioxide (22-30) mmol/L BUN (9-20) mg/dL Creatinine (0.66-1.25) mg/dL Glucose (74-99) mg/dL POC Glucose (mg/dL) 200 H 225 H (75-99) mg/dL Phosphorus (2.5-4.5) mg/dL Magnesium (1.6-2.3) mg/dL 01/28/18 01/28/18 01/28/18 Range/Units 03:27 03:31 07:22 RBC (4.30-5.90) m/uL Hgb (13.0-17.5) gm/dL Hct (39.0-53.0) % Neutrophils # (1.3-7.7) k/uL Lymphocytes # (1.0-4.8) k/uL PT 15.2 H (9.0-12.0) sec INR 1.7 H (<1.2) Sodium 134 L (137-145) mmol/L Carbon Dioxide 19 L (22-30) mmol/L BUN 90 H (9-20) mg/dL Creatinine 3.50 H (0.66-1.25) mg/dL Glucose 162 H (74-99) mg/dL POC Glucose (mg/dL) 136 H (75-99) mg/dL Phosphorus 5.4 H (2.5-4.5) mg/dL Magnesium 2.4 H (1.6-2.3) mg/dL 01/28/18 Range/Units 12:11 RBC (4.30-5.90) m/uL Hgb (13.0-17.5) gm/dL Hct (39.0-53.0) % Neutrophils # (1.3-7.7) k/uL Lymphocytes # (1.0-4.8) k/uL PT (9.0-12.0) sec INR (<1.2) Sodium (137-145) mmol/L Carbon Dioxide (22-30) mmol/L BUN (9-20) mg/dL Creatinine (0.66-1.25) mg/dL Glucose (74-99) mg/dL POC Glucose (mg/dL) 132 H (75-99) mg/dL Phosphorus (2.5-4.5) mg/dL Magnesium (1.6-2.3) mg/dL Microbiology - Last 24 Hours (Table) 01/23/18 13:00 Anaerobic Culture - Final Foot - Right Anaerobic Gm Negative Bacilli 01/27/18 10:20 Gram Stain - Preliminary Pleural Fluid Body Fluid Culture - Preliminary 01/25/18 18:13 Blood Culture - Preliminary Blood No Growth after 48 hours Assessment and Plan Plan: Assessment 1 acute hypoxic respiratory failure with development of large bilateral pleural effusion right more than left , the patient was quite hypoxic on 15 L per minute nasal cannula addition to BiPAP for respiratory support. We performed a thoracentesis on the right lung yesterday and subsequently his oxidation improved and the patient is currently down to 6 L of oxygen nasal cannula and this can be further weaned down. Also the patient is being diuresed with IV Lasix. The patient on dobutamine and his urine output is improving and the patient is a negative fluid balance. There is some residual pleural effusion on the left. 2 systolic heart failure with ejection fraction of 20-25% 3 acute kidney injury with progressive worsening in the renal function. This is likely secondary to cardiorenal factors. Currently on Lasix 40 minutes every 12 hours. 4 staphylococcal septicemia/MSSA likely secondary right foot infection, post debridement and the patient is currently on IV Kefzol and the patient is also on ciprofloxacin for the stenotrophomonas and there wounds. 5 E. 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 9 peripheral vascular disease with left below-knee amputation 10 diabetes mellitus 11 hypertension 12 hyperlipidemia 13 osteoarthritis Plan Continue dobutamine. Cut down the Lasix. Monitor fluid balance. We'll watch left-sided pleural effusion and consider thoracentesis if there is no improvement and they oxygenation. Overall condition is improved and the patient will be weaned down to 40 to about 2 by nasal cannula and gradually wean it down as his condition continues to improve. Nephrology is on the case. ID is on the case. We'll continue to follow.
--- NOTE | 2018-01-28 15:01 | PN ---
PROGRESS NOTE Mr. Clarke is doing much better. He is on the dobutamine drip, making urine, feels better. Denies chest pain. Remains in sinus rhythm. S1-S2 heard normally, short systolic murmur noted. Lungs reveal diminished air entry, but compared to yesterday it is better. He had a thoracentesis performed from the right side of nearly 1-1/2 L taken out. From a cardiac standpoint I am recommending that we continue current medical regimen including the dobutamine drip and hopefully we can wean it off tomorrow. He is clinically improved and he does have Staph aureus bacteremia which is being addressed by Infectious Disease. Although his LV function is diminished and had a troponin elevation at this time. I am recommending conservative management and I discussed this with the patient. CHRISTIN / IJN: [id number] /
--- NOTE | 2018-01-28 16:25 | PN ---
PROGRESS NOTE Patient is seen for followup for acute kidney injury, mainly cardiorenal. He was significantly volume-overloaded. Patient remains on Lasix drip. He was started on dobutamine yesterday. Urine output remains good at about 100 to 60 mL/hour. Overall, patient states he is feeling slightly better. He has not been eating much. He is complaining of constipation. Blood pressure this morning was 110/62, heart rate 96 per minute. He is afebrile. EXAMINATION OF THE HEART: S1, S2. EXAMINATION OF LUNGS: Bilateral breath sounds are heard. ABDOMEN: Soft, non-tender. Examination of lower extremities shows 1+ edema bilaterally. MEDICAL COMMUNICATION SPECIALIST exam is grossly intact. Labs show sodium 134, potassium 3.9, chloride 100, BUN 90, serum creatinine 3.5, hemoglobin 11.3 g/dL. ASSESSMENT: 1. Acute kidney injury, cardiorenal. Continue with the dobutamine. Lasix has been switched to IV q.12 hours, which is appropriate. Serum creatinine is slightly higher; however, the rate of increase is not as much as before, and patient continues to maintain fair urine output. We will repeat labs in a.m. He is not on any nephrotoxic agents. Blood pressure is on the lower side. 2. Congestive heart failure, volume overload. Continue current dose of Lasix. Chest x-ray continues to show pulmonary edema. I will change the Lasix to q.8 hours instead of q.12 hours. 3. Cardiomyopathy with ejection fraction 20% to 25%. 4. Congestive heart failure, systolic, acute on top of chronic, slightly improved. PLAN: Change Lasix to 40 mg q.8 hours. Continue with dobutamine. Repeat labs in a.m. MMODL / IJN: [id number] /
[2018-01-28] MEDS: SODIUM CHLORIDE 0.9% 1,000 ML IV SCH (17:28)
[2018-01-28 17:43] LABS: Glucose,Whole Blood 223 mg/dL (75-99)
[2018-01-28 20:13] LABS: Magnesium 2.4 mg/dL (1.6-2.3)
[2018-01-28 20:46] LABS: Glucose,Whole Blood 182 mg/dL (75-99)
[2018-01-28] MEDS: INSULIN DETEMIR 100 UNIT/ML 10 ML VIAL SQ SCH (20:53)
--- NOTE | 2018-01-28 21:34 | PN ---
PROGRESS NOTE DATE OF SERVICE: 01/28/2018 PRESENTING COMPLAINT: Tired. INTERVAL HISTORY: The patient in the ICU, presented with sepsis and septic shock, felt to be a combination of pneumonia and infected right big toe, possibly osteomyelitis and UTI. The patient is status post debridement of right big toe, also had an acute SD. The patient is being switched from Lasix drip to bolus Lasix, remains on dobutamine drip, tolerating a diet, has not had a bowel movement. Some edema is still present. REVIEW OF SYSTEMS: Done for review of systems done for constitutional, cardiovascular, GI, pulmonary; relevant findings as above. CURRENT MEDICATIONS: Reviewed that include: 1. IV Ancef. 2. P.o. Cipro. 3. IV dobutamine. 4. Insulin. EXAMINATION: Temperature 98.1, pulse 102, respirations 34, blood pressure 109/67, pulse ox 99% on 4L. GENERAL APPEARANCE: Sitting up, awake. EYES: Pupils equal. Conjunctivae normal. HEENT: External nose and ears normal. Oral cavity normal. NECK: JVD not raised. Mass not palpable. RESPIRATORY: Effort increased. LUNGS: Diminished breath sounds. CARDIOVASCULAR: First and second sounds normal. Edema in the right leg. ABDOMEN: Soft, nontender. Liver and spleen not palpable. PSYCHIATRY: Alert and oriented x3. Mood and affect were normal. EXTREMITIES: Left below-knee amputation. INVESTIGATIONS: BUN 90, creatinine 3.50. Magnesium 2.4, phosphorus 5.4. Accu-Cheks are noted. Chest x-ray shows improvement of the effusion on the right side, though somewhat rather significant on the left side. ASSESSMENT: 1. Severe sepsis, septic shock on presentation with infected source, probably osteomyelitis of the right big toe with cultures growing methicillin-sensitive staphylococcus aureus and Stenotrophomonas maltophilia. 2. Sepsis with positive blood cultures with methicillin-sensitive Staphylococcus aureus. 3. Acute urinary tract infection. Cultures positive for Escherichia coli. 4. Acute non-ST elevation myocardial infarction, present on admission. 5. 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 6. Diabetes mellitus type 2, chronically on insulin, uncontrolled with hypo- and hyperglycemia. 7. Hyperlipidemia. 8. Acute kidney injury, could be acute tubular necrosis, including contribution from hypotension from sepsis, continues to worsen. 9. Acute lactic acidosis from sepsis. 10.Acute hypoxic respiratory failure from chronic obstructive pulmonary disease, pneumonia and congestive heart failure. Remains on high-flow oxygen, slow to respond. 11.Status post debridement of the right big toe by Dr. White, may need amputation. 12.Right thoracentesis, 700 mL of fluid was removed. PLAN: Prognosis remains guarded. Continue with IV antibiotics. Lasix drip was switched over to bolus Lasix. The patient will be given an enema. He has not had a bowel movement for 5 days. He is rather uncomfortable. Given his age, prognosis is guarded. Continue to follow. MMODL / IJN: [id number] /
[2018-01-28] MEDS ORDERED: POTASSIUM CHLORIDE ER 20 MEQ TAB.ER PO SCH (22:00)
[2018-01-28] MEDS: LATANOPROST 0.005% OPHTH DROPS 2.5 ML BTL BOTH EYES SCH (22:21)
[2018-01-29] MEDS: FUROSEMIDE 10 MG/ML 4 ML VIAL IV SCH ×3 (00:28→15:04)
[2018-01-29] MEDS: ceFAZolin IN SWFI 2 GM/20 ML SYRINGE IVP SCH ×3 (00:28→15:04)
[2018-01-29] MEDS: CIPROFLOXACIN HCL 500 MG TAB PO SCH ×2 (04:42→21:16)
[2018-01-29 06:31] LABS: Basophils % (A) 0 %; Eosinophils # (A) 0.2 k/uL (0-0.7); Eosinophils % (A) 2 %; HCT 34.7 % (39.0-53.0); HGB 11.2 gm/dL (13.0-17.5); Lymphocytes # (A) 0.9 k/uL (1.0-4.8); Lymphocytes % (A) 9 %; MCH 31.7 pg (25.0-35.0); MCHC 32.3 g/dL (31.0-37.0); MCV 98.2 fL (80.0-100.0); Mean Platelet Volume 7.7; Monocytes # (A) 0.7 k/uL (0-1.0); Monocytes % (A) 7 %; Neutrophils # (A) 8.1 k/uL (1.3-7.7); Neutrophils % (A) 80 %; Platelet Count 218 k/uL (150-450); RBC 3.53 m/uL (4.30-5.90); RDW 13.1 % (11.5-15.5); WBC 10.1 k/uL (3.8-10.6)
[2018-01-29 06:44] LABS: Albumin 2.7 g/dL (3.5-5.0); Calcium 8.5 mg/dL (8.4-10.2); Magnesium 2.5 mg/dL (1.6-2.3); Phosphorus 5.4 mg/dL (2.5-4.5); Potassium 4.1 mmol/L (3.5-5.1); Total Bilirubin 0.6 mg/dL (0.2-1.3); Total Protein 5.5 g/dL (6.3-8.2)
--- NOTE | 2018-01-29 06:52 | XR ---
EXAMINATION TYPE: XR chest 1V portable DATE OF EXAM: 01/29/2018 HISTORY: PNA. REFERENCE: Previous study dated 01/28/2018. FINDINGS: There are is bilateral airspace disease. There are small effusions present bilaterally. Hea rt size is upper limits of normal. IMPRESSION: 1. CONTINUING BIBASILAR LATERAL AIRSPACE DISEASE, WORSE ON THE RIGHT THAN THE LEFT. THIS MAY REPRESEN T CONFLUENT EDEMA OR PNEUMONIA. 2. SMALL, BILATERAL EFFUSIONS. 3. BORDERLINE CARDIOMEGALY.
[2018-01-29 07:04] LABS: Glucose,Whole Blood 96 mg/dL (75-99)
[2018-01-29] MEDS: IPRATROPIUM-ALBUTEROL 3 ML NEB INHALATION SCH ×4 (07:27→20:22)
[2018-01-29] MEDS ORDERED: ENOXAPARIN 30 MG/0.3 ML SYRINGE SQ SCH (09:00)
[2018-01-29] MEDS: METOPROLOL TARTRATE 12.5 MG TAB PO SCH ×2 (09:46→21:17)
[2018-01-29] MEDS: FAMOTIDINE 20 MG TAB PO SCH (09:46)
[2018-01-29] MEDS: ASPIRIN 81 MG PO SCH (09:46)
[2018-01-29] MEDS: ATORVASTATIN 40 MG TAB PO SCH (09:46)
[2018-01-29] MEDS: SODIUM BICARBONATE TAB 650 MG TAB PO SCH ×2 (09:46→21:17)
[2018-01-29] MEDS: INSULIN ASPART 100 UNIT/ML 1 ML 10 ML VIAL SQ SCH ×4 (09:47→21:16)
--- NOTE | 2018-01-29 09:49 | P.PN ---
Subjective Progress Note Date: 01/29/18 87-year-old male patient, known history of congestion heart failure with an ejection fraction of 20-25%, on addition to history of diabetes, hypertension and hyperlipidemia and peripheral vascular disease with below-knee amputation on the left. The patient presented to the hospital because of generalized weakness and some shortness of breath. In the emergency department the cardiac panel was positive and the patient ruled in for an acute non-ST segment elevation myocardial infarction. He had a EKG that showed a left bundle branch block pattern that was of a new onset. The patient was placed on IV heparin. The patient was placed on a Lasix drip however the patient gradually went into acute kidney injury and this was attributed to cardiorenal factors. Serum creatinine gradually came up and there was marked improvement in the urine output. The patient continued to show signs of volume overload. Subsequent chest x-ray showed large bilateral pleural effusion right more than left. At the same time that, the patient was getting short of breath and on and off he was requiring BiPAP for respiratory support. This morning he is on 15 L of oxygen by nasal cannula. The patient was also suspected to have an underlying pneumonia and the patient was covered with a combination of vancomycin and Rocephin and Zithromax. Subsequent septic workup showed a E. coli urinary tract infection and the patient was also found to have MSSA in the blood and MSSA in the left foot wound in addition to stenotrophomonas. The right foot has already been debrided by vascular surgery. Based on this, antibiotic just was were done and the patient was placed on a combination of Salt 2 g every 8 hours and ciprofloxacin 500 breath mg every 18 hours. Earlier this morning, the patient was taken off the Lasix drip and the patient was placed on Lasix 40 g every 12 hours. The patient was also started on dobutamine 2.5 g per KG per minute. 01/28/2018 the patient is feeling better. Oxidation is improved and the patient is being weaned off the FiO2 and this morning he is down to 6 L and his pulse ox is around 100%. The patient had a large volume thoracentesis yesterday and the fluid is most likely a chain state with a total protein of 2 g and an LDH of 128. This is consistent with CHF. Today's chest x-ray still showing some congestion and some residual pleural effusion on the left. The patient is currently on a combination of dobutamine drip and Lasix. Lasix and a dose of 43 g IV push every 12 hours. He is producing good amount of urine output. His net fluid balance over the past 24 hours is in the order of 1.1 L and another 2.3 L since this morning. As such is improving his urine output and the patient's is doing well. The creatinine today's at 3.5 and a Lasix dose was dropped down to 40 g every 12 hours. No chest pain. Still on same antibiotic coverage regarding his septic event as the patient had a MSSA bacteremia from a diabetic wound infection. He has undergone the appropriate debridement. He remains on a combination of ciprofloxacin and Kefzol as an antibiotic coverage. No altered mentation. No chest pain. Tolerating diet. No nausea or vomiting. No other complaints otherwise. He has a component of anion gap metabolic acidosis of bicarb level of 19. On 01/29/2018, the patient is not having any active complaints. He is less short of breath especially when he lays down. His chest x-ray showing left- sided pleural effusion and pulmonary edema. The patient is an acute CHF and the patient is on dobutamine at 5 mics per KG per minute and he is also on Lasix 40 g IV push every 12 hours. Urine output is adequate and the patient is in a negative fluid balance. The net fluid balance for yesterday was 9 80 mL negative and the day prior to that was -2.3 L. The patient is producing adequate amount of urine output. Renal function is still in. In the creatinine is on the rise. The patient suffered an ATN probably related to his underlying sepsis. As mentioned the patient had a diabetic foot ulcers and osteomyelitis with secondary septicemia with MSSA. There is also stenotrophomonas in the leg wound. No encephalopathy. Awake and alert. Following commands and answering questions. Oxidation is improved and the patient has been weaned down to 4 L. I performed a second thoracentesis on the left lung and drained approximately 800 mL of pleural fluid from the pleural space without any complications. Chest x-ray is to follow. He is afebrile. Tolerating diet. No nausea or vomiting. Objective - Vital Signs Vital signs: Vital Signs Temp 97.8 F 01/29/18 08:00 Pulse 95 01/29/18 08:00 Resp 26 H 09/08/18 08:00 BP 136/72 01/29/18 08:00 Pulse Ox 83 L 01/29/18 08:00 Intake & Output 01/28/18 01/29/18 01/29/18 18:59 06:59 18:59 Intake Total 120 1149.043 24.1 Output Total 1047 1203 115 Balance -927 -53.957 -90.9 Weight 98.2 kg 98.2 kg Intake: IV 120 275.1 24.1 DOBUTamine DRIP 500 mg In 155.1 14.1 Dextrose/Water 1 250ml. bag @ 2.5 MCG/KG/MIN 7.3 mls/hr IV .Q0M UDAY Rx#: [id number] Sodium Chloride 0.9% 1, 120 120 10 000 ml @ 10 mls/hr IV . Q24H UDAY Rx#:[id number] Intake, IV Titration 138.943 Amount DOBUTamine DRIP 500 mg In 138.943 Dextrose/Water 1 250ml. bag @ 2.5 MCG/KG/MIN 7.3 mls/hr IV .Q0M UDAY Rx#: [id number] Oral 735 Output: Urine 1047 1203 115 Other: Voiding Method Indwelling Catheter Indwelling Catheter # Bowel Movements 1 - Exam General appearance: alert, in no apparent distress very pleasant, basically asymptomatic during my evaluation. Head exam: atraumatic, normocephalic Eye exam: normal appearance, PERRLA, EOMI, no icterus. ENT exam: mucous membranes dry Neck exam: normal inspection. Absent: tenderness, meningismus no neck masses, no JVD. Respiratory exam: Improvement in the sound bilaterally with some minimal residual dullness in the left lung base.. Crackles, no rhonchi, no wheezes. Cardiovascular Exam: regular rate, normal rhythm no S3 gallop, no murmur was appreciated. GI/Abdominal exam: soft. Nontender, no megaly, no rebound, no guarding. Extremities exam:normal inspection, normal capillary refill. Absent: pedal edema there is evidence of left below knee amputation. There is also evidence of deep ulcer at the base of the right big toe medially. Some discharge noted. The patient has a below knee amputation on the left Neurological exam: Alert, oriented 3, no gross focal neurologic deficit. Psychiatric exam: normal affect, normal mood, normal mental status examination. Skin exam: Present: 2.5 cm ulcer at the base of the right big toe medially. With serous drainage noted. - Labs CBC & Chem 7: 01/29/18 06:21 01/29/18 06:21 Labs: Abnormal Lab Results - Last 24 Hours (Table) 01/28/18 01/28/18 01/28/18 Range/Units 12:11 17:39 19:29 RBC (4.30-5.90) m/uL Hgb (13.0-17.5) gm/dL Hct (39.0-53.0) % Neutrophils # (1.3-7.7) k/uL Lymphocytes # (1.0-4.8) k/uL BUN (9-20) mg/dL Creatinine (0.66-1.25) mg/dL POC Glucose (mg/dL) 132 H 223 H (75-99) mg/dL Phosphorus (2.5-4.5) mg/dL Magnesium 2.4 H (1.6-2.3) mg/dL AST (17-59) U/L Total Protein (6.3-8.2) g/dL Albumin (3.5-5.0) g/dL 01/28/18 01/29/18 01/29/18 Range/Units 20:44 06:21 06:21 RBC 3.53 L (4.30-5.90) m/uL Hgb 11.2 L (13.0-17.5) gm/dL Hct 34.7 L (39.0-53.0) % Neutrophils # 8.1 H (1.3-7.7) k/uL Lymphocytes # 0.9 L (1.0-4.8) k/uL BUN 92 H (9-20) mg/dL Creatinine 3.87 H (0.66-1.25) mg/dL POC Glucose (mg/dL) 182 H (75-99) mg/dL Phosphorus 5.4 H (2.5-4.5) mg/dL Magnesium 2.5 H (1.6-2.3) mg/dL AST 99 H (17-59) U/L Total Protein 5.5 L (6.3-8.2) g/dL Albumin 2.7 L (3.5-5.0) g/dL Microbiology - Last 24 Hours (Table) 01/25/18 18:13 Blood Culture - Preliminary Blood No Growth after 72 hours 01/25/18 15:30 Gram Stain - Final Foot - Right Wound Culture - Final Staphylococcus aureus 01/23/18 13:00 Anaerobic Culture - Final Foot - Right Anaerobic Gm Negative Bacilli 01/27/18 10:20 Gram Stain - Preliminary Pleural Fluid Body Fluid Culture - Preliminary Assessment and Plan Plan: Assessment 1 acute hypoxic respiratory failure , secondary to massive bilateral pleural effusions and pulmonary edema. The patient underwent initially a right-sided thoracentesis a left-sided thoracentesis was done today with an additional 800 mL of fluid was aspirated. The pulmonary status improved and the patient's oxidation is improved and currently we are the process of weaning down his FiO2 further. 2 systolic heart failure with ejection fraction of 20-25%, still on dobutamine drip at 5 mg per KG per minute in addition to IV Lasix and the patient is producing adequate amount of urine output. 3 acute kidney injury with progressive worsening in the renal function. This is likely secondary to cardiorenal factors. Possibly an ATN also. Currently on Lasix 40 minutes every 8 hours. 4 staphylococcal septicemia/MSSA likely secondary right foot infection, post debridement and the patient is currently on IV Kefzol and the patient is also on ciprofloxacin for the stenotrophomonas and there wounds. 5 E. coli urine tract infection 6 coronary artery disease with an acute non-ST segment elevation myocardial infarction 7 left bundle branch block pattern 8 diabetic foot ulcer involving the right foot post debridement with cultures indicating stenotrophomonas and MSSA. 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 9 peripheral vascular disease with left below-knee amputation 10 diabetes mellitus 11 hypertension 12 hyperlipidemia 13 osteoarthritis Plan Wean down the dobutamine to 2.5 g per KG per minute. Continued IV Lasix. Monitor renal function. Thoracentesis of the left lung was done and 8 ounces of fluid was aspirated. Wean down the FiO2 further. Switch this patient from Lovenox to subcu heparin in view of his underlying renal failure. Continue same antibiotic coverage. Cardiology is on the case with ID is on the case. Nephritis on the case. Active issue remains in acute heart failure pulmonary edema and renal failure. Clinically improved compared to yesterday.
--- NOTE | 2018-01-29 10:22 | PN ---
PROGRESS NOTE This gentleman has a oof-TQ-viymznher NE, bilateral pneumonia, sepsis with a Staph aureus bacteremia. His ejection fraction is also in the 20-25 percent range. He is hemodynamically stable today, breathing better. Urine output is good, but he still has significant effusion and Dr. Otoole is going to perform thoracentesis. He is in sinus rhythm with PACs. S1, S2 heard normally. Short systolic murmur noted. Lungs reveal diminished air entry on both bases with some fine rales on the right side. Abdomen is soft. Lower extremities reveal diminished pulses. Central nervous system is normal. Plan is to continue with the dobutamine at 2.5 mcg for one more day, perform thoracentesis and continue his other medications. MMODL / IJN: [id number] /
--- NOTE | 2018-01-29 10:25 | PCN ---
PROCEDURE NOTE PROCEDURE: Left-sided thoracentesis. PREOPERATIVE DIAGNOSIS: Left-sided pleural effusion. POSTOPERATIVE DIAGNOSIS: Left-sided pleural effusion. Indication Pleural effusion. A time-out was completed verifying correct patient, procedure, site, positioning , and implant (s) or special equipment if applicable. Ultrasound guidance was not used and appropriate fluid pocket was identified and marked. Patient was positioned, prepped and draped in usual sterile fashion. Lidocaine was used to anesthetize the area. A Thoracentesis catheter was introduced into the pleural space and fluid was removed. Blood loss was none. A chest x-ray was ordered to evaluate for pneumothorax. Total Fluid Removed 800 mL Color of Fluid Turbid light yellowish pleural effusion. Fluid was/was not sent for appropriate laboratory tests. Patient tolerated the procedure well and there were no complications. No bedside complications. Chest x-rays to follow. MMODL / IJN: [id number] /
--- NOTE | 2018-01-29 10:45 | XR ---
EXAMINATION TYPE: XR chest 1V portable DATE OF EXAM: 01/29/2018 HISTORY: post left thoracentesis. REFERENCE: Previous study of earlier today. FINDINGS: There continue to be bilateral effusions not significantly changed from previous. No defini te pneumothorax is seen. Heart size is within normal limits. There is diffuse opacity of the right cristobal ng and evidence of atelectasis in the left lung. There has not been a significant interval change. IMPRESSION: NO SIGNIFICANT INTERVAL CHANGE AND NO POST THORACENTESIS COMPLICATION.
[2018-01-29 12:18] LABS: Glucose,Whole Blood 140 mg/dL (75-99)
[2018-01-29] MEDS: COLLAGENASE 250 UNIT/GM OINTMENT 30 GM TUBE TOPICAL SCH (14:55)
[2018-01-29] MEDS: SODIUM CHLORIDE 0.9% 1,000 ML IV SCH (15:04)
[2018-01-29] MEDS: HEPARIN SODIUM,PORCINE 5,000 UNIT/ML 1 ML VIAL SQ SCH (15:04)
[2018-01-29 16:56] LABS: Glucose,Whole Blood 160 mg/dL (75-99)
[2018-01-29 21:13] LABS: Glucose,Whole Blood 233 mg/dL (75-99)
[2018-01-29] MEDS: INSULIN DETEMIR 100 UNIT/ML 10 ML VIAL SQ SCH (21:16)
[2018-01-29] MEDS: LATANOPROST 0.005% OPHTH DROPS 2.5 ML BTL BOTH EYES SCH (21:16)
--- NOTE | 2018-01-29 21:50 | PN ---
PROGRESS NOTE Patient is seen for followup for acute kidney injury and volume overload. He is currently maintained on dobutamine and Lasix is 40 mg IV q.8 hours. Urine output has been at about 75 mL an hour, 24 hour urine output at 2.2 L. Weight has not changed significantly. PHYSICAL EXAMINATION: Blood pressure was 108/65, heart rate 85 per minute. He is afebrile. Examination of the heart S1, S2. Examination lungs bilateral breath sounds are heard. Abdomen is soft, nontender. Examination lower extremities shows edema 1+ with left BKA. [employer] exam is grossly intact. LABS: Sodium 138, potassium 4.1, BUN 92, serum creatinine 3.87, hemoglobin is 11.2 g/dL, phosphorus 5.4. ASSESSMENT: 1. Acute kidney injury, cardiorenal. Renal function continues to worsen slightly, although patient continues to have good urine output. Lasix is at 40 mg q.8 hours. The patient is in negative balance. I will continue with the dobutamine and the current dose of Lasix. The patient should continue with fluid restriction as well. 2. Cardiomyopathy, ejection fraction less than 20%. 3. Pleural effusion, status post thoracentesis of about 800 mL today. 4. Congestive heart failure, acute on top of chronic, mainly systolic. PLAN: Continue with the dobutamine and IV push Lasix. Repeat labs in a.m. MMODL / IJN: [id number] /
--- NOTE | 2018-01-30 00:02 | PN ---
PROGRESS NOTE DATE OF SERVICE: 01/29/2018. PRESENTING COMPLAINT: Short of breath. INTERVAL HISTORY: The patient in the ICU, presented with sepsis, septic shock, felt to be combination of element of pneumonia, infected right big toe, possibly osteomyelitis and UTI. The patient is status post debridement of right big toe and also had an acute [place]. The patient had thoracentesis, left-sided, where 800 mL was removed. The patient has been switched from Lasix drip to bolus Lasix yesterday, but remains on dobutamine drip. The patient did get an enema yesterday, did have a good bowel movement. Did tolerate some diet. is at the bedside. REVIEW OF SYSTEMS: Done for constitutional, cardiovascular, GI, pulmonary; relevant findings as above. CURRENT MEDICATIONS: Include: 1. IV Ancef. 2. P.o. Cipro. 3. IV dobutamine. 4. Insulin. 5. IV Lasix. EXAMINATION: Temperature 97.8, pulse 57, respirations 16, blood pressure 112/67, pulse ox 99% on 4L. GENERAL APPEARANCE: Sitting up, awake. EYES: Pupils equal. Conjunctivae normal. HEENT: External nose and ears normal. Oral cavity normal. NECK: JVD possibly raised. Mass not palpable. RESPIRATORY: Effort increased. LUNGS: Decreased breath sounds. CARDIOVASCULAR: First and second sounds normal. Edema in the right leg. ABDOMEN: Soft, nontender. Liver and spleen not palpable. PSYCHIATRY: Alert and oriented x3. Mood and affect normal. EXTREMITIES: Left below-knee amputation and wound on the right foot. INVESTIGATIONS: White count 10.1, hemoglobin 11.2. Potassium 4.1, BUN 92, creatinine 3.87, phosphorus 5.4. ASSESSMENT: 1. Severe sepsis, septic shock on presentation with infection, so probably osteomyelitis of right big toe with cultures growing methicillin-sensitive Staphylococcus aureus and Stenotrophomonas maltophilia and possible pneumonia. 2. Sepsis, positive blood cultures with methicillin-sensitive Staphylococcus aureus. 3. Acute urinary tract infection. Cultures positive for Escherichia coli. 4. Acute non-ST elevation myocardial infarction, present on admission. 5. Chronic left below-knee amputation. Normally has a prosthesis. 6. Diabetes mellitus type 2, chronically on insulin uncontrolled with hyper- and hypoglycemia. 7. Hyperlipidemia. 8. Acute kidney injury, could be acute tubular necrosis, including contribution from hypertension or sepsis, continues to get worse. 9. Acute lactic acidosis from sepsis. 10.Acute hypoxic respiratory failure from chronic obstructive pulmonary disease, pneumonia, congestive heart failure on oxygen. 11.Status post debridement right big toe by Dr. White. May need amputation. 12.Status post right thoracentesis 100 mL and today 800 mL removed from the left side. Continue current medication and treatment plan. Patient remains on dobutamine, IV Ancef, IV Lasix 40 q.8. care was discussed with the at the bedside. The patient is being followed by Nephrology. The patient has had a good urine output. Follow. MMODL / IJN: [id number] /
[2018-01-30] MEDS: ceFAZolin IN SWFI 2 GM/20 ML SYRINGE IVP SCH ×3 (01:21→17:55)
[2018-01-30] MEDS: HEPARIN SODIUM,PORCINE 5,000 UNIT/ML 1 ML VIAL SQ SCH ×3 (01:22→17:55)
[2018-01-30] MEDS: FUROSEMIDE 10 MG/ML 4 ML VIAL IV SCH ×2 (01:22→09:36)
[2018-01-30 04:43] LABS: Basophils % (A) 0 %; Eosinophils # (A) 0.1 k/uL (0-0.7); Eosinophils % (A) 1 %; HGB 11.6 gm/dL (13.0-17.5); Lymphocytes # (A) 1.1 k/uL (1.0-4.8); Lymphocytes % (A) 11 %; MCH 31.5 pg (25.0-35.0); MCHC 32.3 g/dL (31.0-37.0); MCV 97.6 fL (80.0-100.0); Mean Platelet Volume 8.2; Monocytes # (A) 0.8 k/uL (0-1.0); Monocytes % (A) 7 %; Neutrophils # (A) 8.1 k/uL (1.3-7.7); Neutrophils % (A) 78 %; Platelet Count 240 k/uL (150-450); RBC 3.69 m/uL (4.30-5.90); RDW 13.2 % (11.5-15.5); WBC 10.5 k/uL (3.8-10.6)
[2018-01-30 05:02] LABS: Albumin 2.7 g/dL (3.5-5.0); Calcium 8.5 mg/dL (8.4-10.2); Magnesium 2.5 mg/dL (1.6-2.3); Phosphorus 5.9 mg/dL (2.5-4.5); Potassium 3.7 mmol/L (3.5-5.1); Total Bilirubin 0.6 mg/dL (0.2-1.3); Total Protein 5.7 g/dL (6.3-8.2)
--- NOTE | 2018-01-30 06:47 | XR ---
EXAMINATION TYPE: XR chest 1V portable DATE OF EXAM: 01/30/2018 HISTORY: PNA. REFERENCE: Previous study dated 01/29/2018. FINDINGS: There is worsening opacity of the right lung. There continues to be left basilar airspace d isease. The heart is enlarged. There is a left-sided effusion. IMPRESSION: WORSENING RIGHT-SIDED PNEUMONIA.
[2018-01-30] MEDS: IPRATROPIUM-ALBUTEROL 3 ML NEB INHALATION SCH ×4 (07:18→19:30)
[2018-01-30] MEDS: INSULIN ASPART 100 UNIT/ML 1 ML 10 ML VIAL SQ SCH ×4 (09:25→20:17)
[2018-01-30] MEDS: COLLAGENASE 250 UNIT/GM OINTMENT 30 GM TUBE TOPICAL SCH (09:37)
[2018-01-30] MEDS: ASPIRIN 81 MG PO SCH (09:37)
[2018-01-30] MEDS: ATORVASTATIN 40 MG TAB PO SCH (09:37)
[2018-01-30] MEDS: FAMOTIDINE 20 MG TAB PO SCH (09:37)
[2018-01-30] MEDS: METOPROLOL TARTRATE 12.5 MG TAB PO SCH ×2 (09:39→20:17)
[2018-01-30] MEDS: SODIUM BICARBONATE TAB 650 MG TAB PO SCH ×2 (09:39→20:17)
--- NOTE | 2018-01-30 10:40 | P.PN ---
Subjective Progress Note Date: 01/30/18 87-year-old male patient, known history of congestion heart failure with an ejection fraction of 20-25%, on addition to history of diabetes, hypertension and hyperlipidemia and peripheral vascular disease with below-knee amputation on the left. The patient presented to the hospital because of generalized weakness and some shortness of breath. In the emergency department the cardiac panel was positive and the patient ruled in for an acute non-ST segment elevation myocardial infarction. He had a EKG that showed a left bundle branch block pattern that was of a new onset. The patient was placed on IV heparin. The patient was placed on a Lasix drip however the patient gradually went into acute kidney injury and this was attributed to cardiorenal factors. Serum creatinine gradually came up and there was marked improvement in the urine output. The patient continued to show signs of volume overload. Subsequent chest x-ray showed large bilateral pleural effusion right more than left. At the same time that, the patient was getting short of breath and on and off he was requiring BiPAP for respiratory support. This morning he is on 15 L of oxygen by nasal cannula. The patient was also suspected to have an underlying pneumonia and the patient was covered with a combination of vancomycin and Rocephin and Zithromax. Subsequent septic workup showed a E. coli urinary tract infection and the patient was also found to have MSSA in the blood and MSSA in the left foot wound in addition to stenotrophomonas. The right foot has already been debrided by vascular surgery. Based on this, antibiotic just was were done and the patient was placed on a combination of Salt 2 g every 8 hours and ciprofloxacin 500 breath mg every 18 hours. Earlier this morning, the patient was taken off the Lasix drip and the patient was placed on Lasix 40 g every 12 hours. The patient was also started on dobutamine 2.5 g per KG per minute. 01/28/2018 the patient is feeling better. Oxidation is improved and the patient is being weaned off the FiO2 and this morning he is down to 6 L and his pulse ox is around 100%. The patient had a large volume thoracentesis yesterday and the fluid is most likely a chain state with a total protein of 2 g and an LDH of 128. This is consistent with CHF. Today's chest x-ray still showing some congestion and some residual pleural effusion on the left. The patient is currently on a combination of dobutamine drip and Lasix. Lasix and a dose of 43 g IV push every 12 hours. He is producing good amount of urine output. His net fluid balance over the past 24 hours is in the order of 1.1 L and another 2.3 L since this morning. As such is improving his urine output and the patient's is doing well. The creatinine today's at 3.5 and a Lasix dose was dropped down to 40 g every 12 hours. No chest pain. Still on same antibiotic coverage regarding his septic event as the patient had a MSSA bacteremia from a diabetic wound infection. He has undergone the appropriate debridement. He remains on a combination of ciprofloxacin and Kefzol as an antibiotic coverage. No altered mentation. No chest pain. Tolerating diet. No nausea or vomiting. No other complaints otherwise. He has a component of anion gap metabolic acidosis of bicarb level of 19. On 01/29/2018, the patient is not having any active complaints. He is less short of breath especially when he lays down. His chest x-ray showing left- sided pleural effusion and pulmonary edema. The patient is an acute CHF and the patient is on dobutamine at 5 mics per KG per minute and he is also on Lasix 40 g IV push every 12 hours. Urine output is adequate and the patient is in a negative fluid balance. The net fluid balance for yesterday was 9 80 mL negative and the day prior to that was -2.3 L. The patient is producing adequate amount of urine output. Renal function is still in. In the creatinine is on the rise. The patient suffered an ATN probably related to his underlying sepsis. As mentioned the patient had a diabetic foot ulcers and osteomyelitis with secondary septicemia with MSSA. There is also stenotrophomonas in the leg wound. No encephalopathy. Awake and alert. Following commands and answering questions. Oxidation is improved and the patient has been weaned down to 4 L. I performed a second thoracentesis on the left lung and drained approximately 800 mL of pleural fluid from the pleural space without any complications. Chest x-ray is to follow. He is afebrile. Tolerating diet. No nausea or vomiting. On 01/30/2018, I'm seeing this patient for a follow-up in the intensive care unit. The patient was in acute hypoxic respiratory failure. His CHF was managed. Initially had a right-sided thoracentesis. Subsequently I performed a left-sided thoracentesis. His own 40s about 2 by nasal cannula. On today's chest x-ray there is worsening consolidation of the right lung. Left lung is clear and there is no excessive pleural fluid within the thorax. As such, I think is reasonable to do a CAT scan tomorrow assess the right lung findings special that there is interval worsening in the right lung consolidation. The patient is feeling the same. In fact is feeling slightly better with the bilateral thoracenteses that was done. He remains on a combination of ciprofloxacin and IV Kefzol regarding the MSSA septicemia and the stenotrophomonas wound infection. The patient is osteomyelitis and diabetic foot ulcer on the right foot. The patient is hemodynamically stable. Renal function continues to be impaired. Creatinine today's at 3.95 with a BUN of 101. The values are slightly worse compared to yesterday. The patient on IV Lasix 40 mg IV push every 8 hours. The patient was also given dobutamine for the past 3 days and dobutamine drip was discontinued today by cardiology. He still has some edema lower extremities however his overall fluid balance is improved significantly. The patient is in a negative fluid balance of 2.1 L over the past 24 hours 1 L for the day prior to that and 2.3 L on 2017. As such she's been negative for the past 3-4 days at least. The creatinine is up to 3.9. I think is reasonable to His Diuretics for Now. We'll Discuss This Also with Nephrology. No Nausea. No Vomiting. No Abdominal Pain. No Chest Pain. Wound Care Is Being Done to His Right Foot. Objective - Vital Signs Vital signs: Vital Signs Temp 98.1 F 01/30/18 08:00 Pulse 88 01/30/18 09:00 Resp 21 01/30/18 09:00 BP 119/70 01/30/18 09:00 Pulse Ox 98 01/30/18 09:00 Intake & Output 01/29/18 01/30/18 01/30/18 18:59 06:59 18:59 Intake Total 233.4 635.3 51.9 Output Total 1909 1105 450 Balance -1675.6 -469.7 -398.1 Weight 97.2 kg Intake: IV 204.4 200.3 51.9 DOBUTamine DRIP 500 mg In 84.4 80.3 21.9 Dextrose/Water 1 250ml. bag @ 2.5 MCG/KG/MIN 7.3 mls/hr IV .Q0M [facility] Rx#: [id number] Sodium Chloride 0.9% 1, 120 120 30 000 ml @ 10 mls/hr IV . Q24H [facility] Rx#:[id number] Intake, IV Titration 29.0 Amount DOBUTamine DRIP 500 mg In 29.0 Dextrose/Water 1 250ml. bag @ 2.5 MCG/KG/MIN 7.3 mls/hr IV .Q0M [facility]DAY Rx#: [id number] Oral 435 Output: Urine 1109 1105 450 Other 800 Other: Voiding Method Indwelling Catheter Indwelling Catheter - Exam General appearance: alert, in no apparent distress very pleasant, basically asymptomatic during my evaluation. Head exam: atraumatic, normocephalic Eye exam: normal appearance, PERRLA, EOMI, no icterus. ENT exam: mucous membranes dry Neck exam: normal inspection. Absent: tenderness, meningismus no neck masses, no JVD. Respiratory exam: Improvement in the sound bilaterally with some minimal residual dullness in the left lung base.. Crackles, no rhonchi, no wheezes. Cardiovascular Exam: regular rate, normal rhythm no S3 gallop, no murmur was appreciated. GI/Abdominal exam: soft. Nontender, no megaly, no rebound, no guarding. Extremities exam:normal inspection, normal capillary refill. Absent: pedal edema there is evidence of left below knee amputation. There is also evidence of deep ulcer at the base of the right big toe medially. Some discharge noted. The patient has a below knee amputation on the left Neurological exam: Alert, oriented 3, no gross focal neurologic deficit. Psychiatric exam: normal affect, normal mood, normal mental status examination. Skin exam: Present: 2.5 cm ulcer at the base of the right big toe medially. With serous drainage noted. - Labs CBC & Chem 7: 01/30/18 03:38 01/30/18 03:38 Labs: Abnormal Lab Results - Last 24 Hours (Table) 01/29/18 01/29/18 01/29/18 Range/Units 12:16 16:54 21:11 RBC (4.30-5.90) m/uL Hgb (13.0-17.5) gm/dL Hct (39.0-53.0) % Neutrophils # (1.3-7.7) k/uL Sodium (137-145) mmol/L BUN (9-20) mg/dL Creatinine (0.66-1.25) mg/dL Glucose (74-99) mg/dL POC Glucose (mg/dL) 140 H 160 H 233 H (75-99) mg/dL Phosphorus (2.5-4.5) mg/dL Magnesium (1.6-2.3) mg/dL AST (17-59) U/L Total Protein (6.3-8.2) g/dL Albumin (3.5-5.0) g/dL 01/30/18 01/30/18 Range/Units 03:38 03:38 RBC 3.69 L (4.30-5.90) m/uL Hgb 11.6 L (13.0-17.5) gm/dL Hct 36.0 L (39.0-53.0) % Neutrophils # 8.1 H (1.3-7.7) k/uL Sodium 136 L (137-145) mmol/L BUN 101 H* (9-20) mg/dL Creatinine 3.95 H (0.66-1.25) mg/dL Glucose 105 H (74-99) mg/dL POC Glucose (mg/dL) (75-99) mg/dL Phosphorus 5.9 H (2.5-4.5) mg/dL Magnesium 2.5 H (1.6-2.3) mg/dL AST 130 H (17-59) U/L Total Protein 5.7 L (6.3-8.2) g/dL Albumin 2.7 L (3.5-5.0) g/dL Microbiology - Last 24 Hours (Table) 01/25/18 18:13 Blood Culture - Preliminary Blood No Growth after 96 hours 01/27/18 10:20 Gram Stain - Preliminary Pleural Fluid Body Fluid Culture - Preliminary Assessment and Plan Plan: Assessment 1 acute hypoxic respiratory failure , secondary to massive bilateral pleural effusions and pulmonary edema. Patient was optimized with bilateral thoracentesis. Oxidation is improved and is currently down to 40s of oxygen by nasal cannula. Nevertheless, there is worsening consolidation of the chest x- ray on today's chest x-ray and would like to proceed with a CAT scan of the chest without contrast to evaluate the right lung findings. 2 systolic heart failure with ejection fraction of 20-25%, the patient was taken off the dobutamine and we'll cut down the Lasix for today 3 acute kidney injury with progressive worsening in the renal function. This is likely secondary to cardiorenal factors. Possibly an ATN also. The patient is producing adequate amount of urine output. Renal function continues to get worse probably related to cardiorenal factors and diuretics. We will cut down on his Lasix. 4 staphylococcal septicemia/MSSA likely secondary right foot infection, post debridement and the patient is currently on IV Kefzol and the patient is also on ciprofloxacin for the stenotrophomonas and there wounds. 5 E. coli urine tract infection 6 coronary artery disease with an acute non-ST segment elevation myocardial infarction 7 left bundle branch block pattern 8 diabetic foot ulcer involving the right foot post debridement with cultures indicating stenotrophomonas and MSSA. 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 9 peripheral vascular disease with left below-knee amputation 10 diabetes mellitus 11 hypertension 12 hyperlipidemia 13 osteoarthritis Plan The patient is more stable for now. The patient is on 4 L of oxygen nasal cannula. Proceed with a CAT scan of the chest without contrast. Continue same antibiotic coverage. Kept on the Lasix to 60 mg every 24 hours. Agree on starting dobutamine drip. Monitoring the cardiac rhythm is important as long as the patient is having occasional PVCs. Monitor electrolytes. We'll continue to follow.
--- NOTE | 2018-01-30 11:22 | PN ---
PROGRESS NOTE Mr. Clarke had thoracenteses on the left side, nearly 800 mL were out. He feels better. Denies chest pain. Remains in sinus rhythm with PACs. His a dobutamine is a 2.5 mcg. Physical exam revealed JVD of 1 cm. No carotid bruit. S1, S2 heard normally. Short systolic murmur noted. Lungs reveal clearly improved air entry. Abdomen and lower extremity exam is unchanged. This gentleman has bacteremia and heart failure. I will repeat echocardiogram tomorrow. Discontinue dobutamine and then based on clinical course I will make further recommendations. MMODL / IJN: [id number] /
[2018-01-30 12:25] LABS: Glucose,Whole Blood 142 mg/dL (75-99)
--- NOTE | 2018-01-30 12:32 | CT ---
EXAMINATION TYPE: CT chest wo con DATE OF EXAM: 01/30/2018 COMPARISON: None. HISTORY: [facility]. pulm. Infiltrates CT DLP: 734 mGycm. Automated Exposure Control for Dose Reduction was Utilized. TECHNIQUE: CT scan of the thorax is performed without IV contrast. FINDINGS: There are bilateral effusions, larger on the right than the left with associated atelectati c change. There is patchy groundglass opacity present bilaterally, greater on the right than the left . There is no significant axillary or hilar adenopathy. There is some shotty mediastinal adenopathy. There is moderate atheromatous calcification of the arterial tree including the coronary arteries. The gallbladder is been removed. There is hypertrophic spondylosis within the spine. IMPRESSION: 1. BILATERAL EFFUSIONS, GREATER ON THE RIGHT THAN THE LEFT WITH ASSOCIATED ATELECTASIS. 2. PATCHY GROUNDGLASS OPACITY IN BOTH LUNGS, GREATER ON THE RIGHT THAN THE LEFT. THIS MAY REPRESENT P NEUMONITIS OR ATYPICAL PNEUMONIA. 3. MILD DEGENERATIVE CHANGE WITHIN THE SPINE.
[2018-01-30] MEDS: SODIUM CHLORIDE 0.9% 1,000 ML IV SCH (12:52)
[2018-01-30] MEDS: NYSTATIN 100,000 UNIT/ML SUSP 500,000 UNIT/5 ML CUP PO SCH ×3 (12:52→20:52)
--- NOTE | 2018-01-30 14:55 | PN ---
PROGRESS NOTE Patient is seen for followup for acute kidney injury, volume overload. He is maintained on IV Lasix 40 mg q.8 hours. He has had good urine output, 24 hour urine output at about 3 L. Overall, patient states he feels about the same. This morning, blood pressure was 119/70, heart rate 88 per minute. He is afebrile. Examination of the heart: S1, S2. Examination of the lungs: Bilateral breath sounds are heard. Decreased breath sounds bases. Abdomen is soft, nontender. Examination lower extremities shows decreased edema. The patient has a left BKA. LABS: Show sodium 136, potassium 3.7, BUN 101, serum creatinine 3.95, phosphorus 5.9. ASSESSMENT: 1. Acute kidney injury mainly cardiorenal, currently being diuresed as patient remains volume overloaded. He continues to require IV diuretics. Patient is maintained on dobutamine as well. The rise in his creatinine has slowed down. 2. Fluid effusion status post thoracentesis. 3. Congestive heart failure, systolic, acute on top of chronic, maintained on dobutamine and IV Lasix. 4. MSSA infection, right foot. 5. E coli urinary tract infection. PLAN: Continue IV Lasix, decrease dose to q.12 hours. Monitor chest x-ray closely and start phosphate binders. Continue to avoid nephrotoxic agents. MMODL / IJN: [id number] /
[2018-01-30] MEDS: CALCIUM ACETATE 667 MG CAP PO SCH (17:55)
[2018-01-30] MEDS: CIPROFLOXACIN HCL 500 MG TAB PO SCH (17:56)
[2018-01-30 18:00] LABS: Glucose,Whole Blood 200 mg/dL (75-99)
[2018-01-30 20:10] LABS: Glucose,Whole Blood 224 mg/dL (75-99)
[2018-01-30] MEDS: LATANOPROST 0.005% OPHTH DROPS 2.5 ML BTL BOTH EYES SCH (20:17)
[2018-01-30] MEDS: INSULIN DETEMIR 100 UNIT/ML 10 ML VIAL SQ SCH (20:51)
--- NOTE | 2018-01-30 23:40 | PN ---
PROGRESS NOTE DATE OF SERVICE: 01/30/2018. REASON FOR FOLLOWUP: 1. MSSA bacteremia. 2. Right diabetic foot infection with osteomyelitis. INTERVAL HISTORY: The patient is afebrile. He has been breathing slightly comfortably. He did have some dry cough not bringing up any sputum. No chest pain. No abdominal pain. Denies pain to the right foot area. EXAMINATION: Blood pressure 108/56, pulse of 84, temperature 97.9, he is 98% on 4 L nasal cannula. GENERAL DESCRIPTION: An elderly male lying in bed in no distress. RESPIRATORY SYSTEM: Unlabored breathing with decreased breath sounds at the bases. No wheeze. HEART: S1, S2. Regular rate and rhythm. ABDOMEN: Soft, no tenderness. LABS: Hemoglobin 11.6, white count 10.5, BUN of 101, creatinine 3.95. DIAGNOSTIC IMPRESSION AND PLAN: Patient with MSSA bacteremia secondary to the right diabetic foot infection with underlying osteomyelitis local. Wound culture positive for Stenotrophomonas and MSSA with blood culture positive for MSSA. Blood culture repeat January 25 has been negative so far. Patient currently on cefazolin and Cipro, that will be continued. He will need a PICC line for outpatient IV antibiotic therapy. Family present at bedside. Questions were answered. Continue local wound care with Santyl followed by moist dressing. MMODL / IJN: [id number] /
[2018-01-31] MEDS: HEPARIN SODIUM,PORCINE 5,000 UNIT/ML 1 ML VIAL SQ SCH ×3 (00:01→16:19)
[2018-01-31] MEDS: ceFAZolin IN SWFI 2 GM/20 ML SYRINGE IVP SCH ×3 (00:01→16:19)
[2018-01-31 05:13] LABS: Basophils # (A) 0.1 k/uL (0-0.2); Basophils % (A) 1 %; Eosinophils # (A) 0.2 k/uL (0-0.7); Eosinophils % (A) 2 %; HCT 36.9 % (39.0-53.0); HGB 11.9 gm/dL (13.0-17.5); Lymphocytes # (A) 1.1 k/uL (1.0-4.8); Lymphocytes % (A) 10 %; MCH 31.3 pg (25.0-35.0); MCHC 32.3 g/dL (31.0-37.0); Mean Platelet Volume 8.1; Monocytes # (A) 0.6 k/uL (0-1.0); Monocytes % (A) 5 %; Neutrophils # (A) 9.2 k/uL (1.3-7.7); Neutrophils % (A) 80 %; Platelet Count 256 k/uL (150-450); RDW 13.3 % (11.5-15.5); WBC 11.5 k/uL (3.8-10.6)
[2018-01-31 05:22] LABS: Albumin 2.7 g/dL (3.5-5.0); Calcium 8.6 mg/dL (8.4-10.2); Magnesium 2.5 mg/dL (1.6-2.3); Phosphorus 6.1 mg/dL (2.5-4.5); Potassium 4.1 mmol/L (3.5-5.1); Total Bilirubin 0.5 mg/dL (0.2-1.3); Total Protein 5.8 g/dL (6.3-8.2)
[2018-01-31 07:08] LABS: Glucose,Whole Blood 93 mg/dL (75-99)
[2018-01-31] MEDS: INSULIN ASPART 100 UNIT/ML 1 ML 10 ML VIAL SQ SCH ×4 (07:08→21:19)
[2018-01-31] MEDS: IPRATROPIUM-ALBUTEROL 3 ML NEB INHALATION SCH ×4 (07:37→20:35)
--- NOTE | 2018-01-31 08:06 | XR ---
EXAMINATION TYPE: XR chest 1V portable DATE OF EXAM: 01/31/2018 COMPARISON: Prior chest x-ray and CT 01/30/2018 HISTORY: Pneumonia, acute kidney injury TECHNIQUE: Single frontal view of the chest is obtained. FINDINGS: Bilateral airspace disease persists. No evident pneumothorax. There are associated effusio ns. Heart size is stable. There are overlying cardiac leads. IMPRESSION: Correlate for pulmonary edema, pneumonia, follow-up recommended.
--- NOTE | 2018-01-31 09:11 | PN ---
PROGRESS NOTE This 87-year-old gentleman has history of sepsis and LV dysfunction, has bilateral pleural effusion with pneumonia. Both sides, he had thoracentesis performed. He feels better. Remains in sinus rhythm with PACs. S1, S2 heard normally. Short systolic murmur noted. Lungs reveal diminished air entry both bases. Abdomen and lower extremity exam unchanged. Plan is to continue current medications, increase activity and move him to telemetry unit. MMODL / IJN: [id number] /
[2018-01-31] MEDS: CALCIUM ACETATE 667 MG CAP PO SCH ×3 (09:15→17:34)
[2018-01-31] MEDS: ASPIRIN 81 MG PO SCH (09:15)
[2018-01-31] MEDS: CIPROFLOXACIN HCL 500 MG TAB PO SCH (09:16)
[2018-01-31] MEDS: FUROSEMIDE 10 MG/ML 10 ML VIAL IV SCH (09:16)
[2018-01-31] MEDS: FAMOTIDINE 20 MG TAB PO SCH (09:16)
[2018-01-31] MEDS: ATORVASTATIN 40 MG TAB PO SCH (09:16)
[2018-01-31] MEDS: METOPROLOL TARTRATE 12.5 MG TAB PO SCH ×2 (09:17→21:19)
[2018-01-31] MEDS: SODIUM BICARBONATE TAB 650 MG TAB PO SCH ×2 (09:17→21:25)
[2018-01-31] MEDS: NYSTATIN 100,000 UNIT/ML SUSP 500,000 UNIT/5 ML CUP PO SCH ×4 (09:17→21:25)
[2018-01-31] MEDS ORDERED: Phenol 1.4% Sore Throat Spray Bottle MUCOUS MEM PRN (10:02)
[2018-01-31] MEDS: COLLAGENASE 250 UNIT/GM OINTMENT 30 GM TUBE TOPICAL SCH (11:23)
--- NOTE | 2018-01-31 11:41 | ECHOF ---
Referral Reason:assess LV function MEASUREMENTS -------- HEIGHT: 185.4 cm WEIGHT: 99.3 kg BP: 119/69 RAP: 5.00 mmHg RVSP: 41.23 mmHg FINDINGS -------- Sinus rhythm. Limited Study Overall left ventricular systolic function is severely impaired with, an EF between 25 - 30 %. Mild tricuspid regurgitation present. There is mild pulmonary hypertension. The right ventricular systolic pressure, as measured by Doppler, is 41.23mmHg. There is no pericardial effusion. CONCLUSIONS -------- 1. Sinus rhythm. 2. Limited Study 3. Overall left ventricular systolic function is severely impaired with, an EF between 25 - 30 %. 4. Mild tricuspid regurgitation present. 5. There is mild pulmonary hypertension. 6. The right ventricular systolic pressure, as measured by Doppler, is 41.23mmHg. 7. There is no pericardial effusion. PLATE AND FRAME FILTER OPERATOR: Jacqueline Valdivia RDCS
[2018-01-31 11:45] LABS: Glucose,Whole Blood 129 mg/dL (75-99)
--- NOTE | 2018-01-31 13:14 | P.PN ---
Subjective Progress Note Date: 01/31/18 87-year-old male patient, known history of congestion heart failure with an ejection fraction of 20-25%, on addition to history of diabetes, hypertension and hyperlipidemia and peripheral vascular disease with below-knee amputation on the left. The patient presented to the hospital because of generalized weakness and some shortness of breath. In the emergency department the cardiac panel was positive and the patient ruled in for an acute non-ST segment elevation myocardial infarction. He had a EKG that showed a left bundle branch block pattern that was of a new onset. The patient was placed on IV heparin. The patient was placed on a Lasix drip however the patient gradually went into acute kidney injury and this was attributed to cardiorenal factors. Serum creatinine gradually came up and there was marked improvement in the urine output. The patient continued to show signs of volume overload. Subsequent chest x-ray showed large bilateral pleural effusion right more than left. At the same time that, the patient was getting short of breath and on and off he was requiring BiPAP for respiratory support. This morning he is on 15 L of oxygen by nasal cannula. The patient was also suspected to have an underlying pneumonia and the patient was covered with a combination of vancomycin and Rocephin and Zithromax. Subsequent septic workup showed a E. coli urinary tract infection and the patient was also found to have MSSA in the blood and MSSA in the left foot wound in addition to stenotrophomonas. The right foot has already been debrided by vascular surgery. Based on this, antibiotic just was were done and the patient was placed on a combination of Salt 2 g every 8 hours and ciprofloxacin 500 breath mg every 18 hours. Earlier this morning, the patient was taken off the Lasix drip and the patient was placed on Lasix 40 g every 12 hours. The patient was also started on dobutamine 2.5 g per KG per minute. 01/28/2018 the patient is feeling better. Oxidation is improved and the patient is being weaned off the FiO2 and this morning he is down to 6 L and his pulse ox is around 100%. The patient had a large volume thoracentesis yesterday and the fluid is most likely a chain state with a total protein of 2 g and an LDH of 128. This is consistent with CHF. Today's chest x-ray still showing some congestion and some residual pleural effusion on the left. The patient is currently on a combination of dobutamine drip and Lasix. Lasix and a dose of 43 g IV push every 12 hours. He is producing good amount of urine output. His net fluid balance over the past 24 hours is in the order of 1.1 L and another 2.3 L since this morning. As such is improving his urine output and the patient's is doing well. The creatinine today's at 3.5 and a Lasix dose was dropped down to 40 g every 12 hours. No chest pain. Still on same antibiotic coverage regarding his septic event as the patient had a MSSA bacteremia from a diabetic wound infection. He has undergone the appropriate debridement. He remains on a combination of ciprofloxacin and Kefzol as an antibiotic coverage. No altered mentation. No chest pain. Tolerating diet. No nausea or vomiting. No other complaints otherwise. He has a component of anion gap metabolic acidosis of bicarb level of 19. On 01/29/2018, the patient is not having any active complaints. He is less short of breath especially when he lays down. His chest x-ray showing left- sided pleural effusion and pulmonary edema. The patient is an acute CHF and the patient is on dobutamine at 5 mics per KG per minute and he is also on Lasix 40 g IV push every 12 hours. Urine output is adequate and the patient is in a negative fluid balance. The net fluid balance for yesterday was 9 80 mL negative and the day prior to that was -2.3 L. The patient is producing adequate amount of urine output. Renal function is still in. In the creatinine is on the rise. The patient suffered an ATN probably related to his underlying sepsis. As mentioned the patient had a diabetic foot ulcers and osteomyelitis with secondary septicemia with MSSA. There is also stenotrophomonas in the leg wound. No encephalopathy. Awake and alert. Following commands and answering questions. Oxidation is improved and the patient has been weaned down to 4 L. I performed a second thoracentesis on the left lung and drained approximately 800 mL of pleural fluid from the pleural space without any complications. Chest x-ray is to follow. He is afebrile. Tolerating diet. No nausea or vomiting. On 01/30/2018, I'm seeing this patient for a follow-up in the intensive care unit. The patient was in acute hypoxic respiratory failure. His CHF was managed. Initially had a right-sided thoracentesis. Subsequently I performed a left-sided thoracentesis. His own 40s about 2 by nasal cannula. On today's chest x-ray there is worsening consolidation of the right lung. Left lung is clear and there is no excessive pleural fluid within the thorax. As such, I think is reasonable to do a CAT scan tomorrow assess the right lung findings special that there is interval worsening in the right lung consolidation. The patient is feeling the same. In fact is feeling slightly better with the bilateral thoracenteses that was done. He remains on a combination of ciprofloxacin and IV Kefzol regarding the MSSA septicemia and the stenotrophomonas wound infection. The patient is osteomyelitis and diabetic foot ulcer on the right foot. The patient is hemodynamically stable. Renal function continues to be impaired. Creatinine today's at 3.95 with a BUN of 101. The values are slightly worse compared to yesterday. The patient on IV Lasix 40 mg IV push every 8 hours. The patient was also given dobutamine for the past 3 days and dobutamine drip was discontinued today by cardiology. He still has some edema lower extremities however his overall fluid balance is improved significantly. The patient is in a negative fluid balance of 2.1 L over the past 24 hours 1 L for the day prior to that and 2.3 L on 2017. As such she's been negative for the past 3-4 days at least. The creatinine is up to 3.9. I think is reasonable to His Diuretics for Now. We'll Discuss This Also with Nephrology. No Nausea. No Vomiting. No Abdominal Pain. No Chest Pain. Wound Care Is Being Done to His Right Foot. On , the patient is doing well. The patient is on oxygen at 2 L per minute nasal cannula. A CAT scan of the chest was done yesterday and showed some residual right-sided pleural effusion and there is a consolidation within the right upper lung area which I think is most likely an atypical presentation of an acute pulmonary edema. The patient does not look clinically to have any significant pneumonia. No significant cough or sputum production. No hemoptysis or pleurisy. He has responded nicely to diuretics. He has responded also earlier today combination of dobutamine and Lasix. I drained his lungs bilaterally and the drainage fluid from the right was a transudate. As such, we'll going to continue the Lasix milligrams IV push every 24 hours and the patient is producing adequate amount of urine output. Antibiotic coverage will be kept the same and the patient is on a combination of IV Kefzol and ciprofloxacin regarding the osteomyelitis/diabetic foot ulcer. He had MSSA septicemia. Septic emboli to his right lung is felt to be less likely. Nephrology is on the case. Renal function is stable with a creatinine of 3.9 on today's evaluation. Hemoglobin is stable at 11.9. No syncopal leukocytosis. No altered mentation. He is known to have cardiomyopathy with poor ejection fraction of around 20-25%. Objective - Vital Signs Vital signs: Vital Signs Temp 97.9 F 01/31/18 12:00 Pulse 92 01/31/18 12:00 Resp 22 01/31/18 12:00 BP 110/67 01/31/18 12:00 Pulse Ox 99 01/31/18 12:00 Intake & Output 01/30/18 01/31/18 01/31/18 18:59 06:59 18:59 Intake Total 989.2 240 Output Total 1235 1275 525 Balance -245.8 -1275 -285 Weight 99.5 kg Intake: IV 89.2 DOBUTamine DRIP 500 mg In 29.2 Dextrose/Water 1 250ml. bag @ 2.5 MCG/KG/MIN 7.3 mls/hr IV .Q0M [facility]DAY Rx#: [id number] Sodium Chloride 0.9% 1, 60 000 ml @ 10 mls/hr IV . Q24H UDAY Rx#:[id number] Oral 900 240 Output: Urine 1235 1275 525 Other: Voiding Method Indwelling Catheter Indwelling Catheter Indwelling Catheter # Bowel Movements 1 - Exam General appearance: alert, in no apparent distress very pleasant, basically asymptomatic during my evaluation. Head exam: atraumatic, normocephalic Eye exam: normal appearance, PERRLA, EOMI, no icterus. ENT exam: mucous membranes dry Neck exam: normal inspection. Absent: tenderness, meningismus no neck masses, no JVD. Respiratory exam: Improvement in the sound bilaterally with some minimal residual dullness in the left lung base.. Crackles, no rhonchi, no wheezes. Cardiovascular Exam: regular rate, normal rhythm no S3 gallop, no murmur was appreciated. GI/Abdominal exam: soft. Nontender, no megaly, no rebound, no guarding. Extremities exam:normal inspection, normal capillary refill. Absent: pedal edema there is evidence of left below knee amputation. There is also evidence of deep ulcer at the base of the right big toe medially. Some discharge noted. The patient has a below knee amputation on the left Neurological exam: Alert, oriented 3, no gross focal neurologic deficit. Psychiatric exam: normal affect, normal mood, normal mental status examination. Skin exam: Present: 2.5 cm ulcer at the base of the right big toe medially. With serous drainage noted. - Labs CBC & Chem 7: 01/31/18 04:21 01/31/18 04:21 Labs: Abnormal Lab Results - Last 24 Hours (Table) 01/30/18 01/30/18 01/31/18 Range/Units 17:58 20:08 04:21 WBC 11.5 H (3.8-10.6) k/uL RBC 3.80 L (4.30-5.90) m/uL Hgb 11.9 L (13.0-17.5) gm/dL Hct 36.9 L (39.0-53.0) % Neutrophils # 9.2 H (1.3-7.7) k/uL Sodium (137-145) mmol/L Chloride (98-107) mmol/L BUN (9-20) mg/dL Creatinine (0.66-1.25) mg/dL Glucose (74-99) mg/dL POC Glucose (mg/dL) 200 H 224 H (75-99) mg/dL Phosphorus (2.5-4.5) mg/dL Magnesium (1.6-2.3) mg/dL AST (17-59) U/L Alkaline Phosphatase (38-126) U/L Total Protein (6.3-8.2) g/dL Albumin (3.5-5.0) g/dL 01/31/18 01/31/18 Range/Units 04:21 11:44 WBC (3.8-10.6) k/uL RBC (4.30-5.90) m/uL Hgb (13.0-17.5) gm/dL Hct (39.0-53.0) % Neutrophils # (1.3-7.7) k/uL Sodium 136 L (137-145) mmol/L Chloride 97 L (98-107) mmol/L BUN 108 H* (9-20) mg/dL Creatinine 3.94 H (0.66-1.25) mg/dL Glucose 107 H (74-99) mg/dL POC Glucose (mg/dL) 129 H (75-99) mg/dL Phosphorus 6.1 H (2.5-4.5) mg/dL Magnesium 2.5 H (1.6-2.3) mg/dL AST 145 H (17-59) U/L Alkaline Phosphatase 153 H (38-126) U/L Total Protein 5.8 L (6.3-8.2) g/dL Albumin 2.7 L (3.5-5.0) g/dL Microbiology - Last 24 Hours (Table) 01/27/18 10:20 Gram Stain - Final Pleural Fluid Body Fluid Culture - Final 01/25/18 18:13 Blood Culture - Preliminary Blood No Growth after 120 hours 01/25/18 15:30 Anaerobic Culture - Final Foot - Right Anaerobic Gm Negative Bacilli Anaerobic Gm Negative Bacilli#2 Assessment and Plan Plan: Assessment 1 acute hypoxic respiratory failure , secondary to massive bilateral pleural effusions and pulmonary edema. Patient was optimized with bilateral thoracentesis. The oxygenation is improved significantly. Nevertheless, the patient continued to have consolidation which is asymmetric more so on the right. I performed a CAT scan of the chest. I'm more convinced that this is a CHF findings are limited to pneumonia. The patient has residual right-sided pleural effusion and the patient is on 2 L about 2 by nasal cannula and there is no need for any further drainage. We decided to proceed with gentle diuresis with him knowing that he also has an underlying renal failure. Antibiotic coverage will be kept the same. 2 systolic heart failure with ejection fraction of 20-25%, the patient was taken off the dobutamine and the patient is on Lasix 63 g IV push every 24 hours. 3 acute kidney injury with progressive worsening in the renal function. This is likely secondary to cardiorenal factors. Possibly an ATN also. The patient is producing adequate amount of urine output. Renal function continues to get worse probably related to cardiorenal factors and diuretics. The patient is producing adequate amount of urine output and the patient is currently on 60 mg IV Lasix for 24 hours. 4 staphylococcal septicemia/MSSA likely secondary right foot infection, post debridement and the patient is currently on IV Kefzol and the patient is also on ciprofloxacin for the stenotrophomonas and there wounds. 5 E. coli urine tract infection 6 coronary artery disease with an acute non-ST segment elevation myocardial infarction 7 left bundle branch block pattern 8 diabetic foot ulcer involving the right foot post debridement with cultures indicating stenotrophomonas and MSSA. 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 9 peripheral vascular disease with left below-knee amputation 10 diabetes mellitus 11 hypertension 12 hyperlipidemia 13 osteoarthritis Plan Continued IV Lasix 60 mg every 24 hours. Monitor urine output. Monitor renal function. Continued IV antibiotics. Repeat chest x-ray in the a.m. No reported prethoracentesis knowing that the pleural fluid was a transudate and consistent with CHF/fluid overload. Wound care. Supportive care. We'll continue to follow. Case was discussed with Dr. Shaw from nephrology.
--- NOTE | 2018-01-31 15:14 | PN ---
PROGRESS NOTE DATE OF SERVICE: PRESENT COMPLAINT: Tired. INTERVAL HISTORY: This patient is seen by me yesterday on 01/30/2018 In the ICU. Patient presented with sepsis, septic shock, felt to be combination of pneumonia, infected right big toe, possibly osteomyelitis and UTI. Patient is status post debridement right big toe. Also had an acute IN. Also patient is status post bilateral thoracentesis. Patient this morning was taken off the dobutamine drip. Also being treated for oral thrush. and daughter at the bedside. Overall feels better. Edema is going down. REVIEW OF SYSTEMS: Done for constitutional, cardiovascular, GI, pulmonary; relevant findings as above. CURRENT MEDICATIONS: Reviewed that include IV Ancef p.o. Cipro. Dobutamine stopped earlier today. IV Lasix once daily. PHYSICAL EXAMINATION: Temperature 98.1, pulse 80, respiration 19, blood pressure 130/63, pulse 100% on nasal cannula. GENERAL APPEARANCE: Sitting on bed, awake. EYES: Pupils equal, conjunctivae normal. HEENT: External appearance of nose and ears normal, oral cavity normal. NECK: JVD unable to assess. Mass not palpable. RESPIRATORY: Effort increased. LUNGS: Decreased breath sounds. CARDIOVASCULAR: First and second sounds normal, Edema in the right leg. ABDOMEN: Soft, nontender. Liver and spleen not palpable. PSYCHIATRY: Alert and oriented x3. Mood and affect normal. EXTREMITIES: Left below-knee amputation and wound on the right foot. INVESTIGATIONS: White count 10.5, hemoglobin 11.6, potassium 3.7, BUN 101, creatinine 3.95. ASSESSMENT: 1. Severe sepsis, septic shock on presentation, infection, probably from osteomyelitis of the right big toe with cultures growing methicillin-sensitive Staphylococcus aureus and just Stenotrophomonas maltophilia and possible pneumonia. 2. Sepsis with positive blood cultures with methicillin-susceptible Staphylococcus aureus. 3. Acute urinary tract infection, cultures positive for Escherichia coli. 4. Acute non-ST elevation myocardial infarction, POA. 5. Chronic left below-knee amputation with prosthesis. 6. Diabetes mellitus type 2, chronically on insulin, uncontrolled with hyper- and hypoglycemia. 7. Hyperlipidemia. 8. Acute kidney injury, could be acute tubular necrosis, including contribution from hypotension and sepsis, progressively getting worse. 9. Acute lactic acidosis from sepsis. 10.Acute hypoxic respiratory failure from chronic obstructive pulmonary disease, pneumonia, congestive heart failure on oxygen. 11.Status post debridement right big toe. Dr. White may need amputation. 12.Status post bilateral thoracentesis. PLAN: Continue current medication and treatment plan. Patient is taken off the dobutamine. It is unclear if patient has still got fluid overload, renal function is actually worsening. Nephrology is already following the patient. Care was discussed with the patient and family at the bedside. Prognosis is guarded. Will follow. MMODL / IJN: [id number] /
[2018-01-31 17:22] LABS: Glucose,Whole Blood 149 mg/dL (75-99)
--- NOTE | 2018-01-31 18:10 | PN ---
PROGRESS NOTE Patient is seen for followup for acute kidney injury and volume overload. His 24 hour urine output was about 3 L and Lasix is currently at 60 mg IV daily. Overall, patient states he is feeling better. CT scan showed pleural effusion and infiltrates noted on the left lung. The patient is maintained on antibiotics for foot wound and urinary tract infection. PHYSICAL EXAMINATION: On examination today, blood pressure was 132/60, heart rate of 80 per minute. Patient is afebrile. Examination of the heart S1, S2. Examination of the lungs decreased breath sounds bases. Minimal basal crackles are heard. Abdomen is soft, nontender. Examination lower extremities shows decreased edema right lower extremity. Patient has left BKA. LABS: Revealed sodium 136, potassium 4.1, chloride 97, BUN 108, serum creatinine 3.94, phosphorus was 6.1, magnesium 2.5. ASSESSMENT: 1. Acute kidney injury, cardiorenal and element of acute tubular necrosis, which improved with dobutamine. The patient had been on Lasix drip for a long period of time. His volume status has improved. Serum creatinine has been slowly going up over the past few days. However, today it is about the same as yesterday. The patient continues to have good urine output with decreased dose of Lasix. I will continue to diurese him since he remains still mildly fluid overloaded. We will repeat labs in a.m. 2. Urinary tract infection with E coli. 3. Right foot wound infection with wound cultures growing Staph aureus and Stenotrophomonas maltophilia and anaerobic gram-negative bacilli. 4. Severe cardiomyopathy, ejection fraction 20-25 percent, status post dobutamine. 5. Congestive heart failure, systolic, acute on top of chronic, currently improved. 6. Pleural effusion, status post thoracentesis. PLAN: Continue current dose of Lasix. Repeat labs in a.m. Continue to avoid nephrotoxic agents. MMODL / IJN: [id number] /
[2018-01-31 21:15] LABS: Glucose,Whole Blood 188 mg/dL (75-99)
[2018-01-31] MEDS: LATANOPROST 0.005% OPHTH DROPS 2.5 ML BTL BOTH EYES SCH (21:19)
[2018-01-31] MEDS: INSULIN DETEMIR 100 UNIT/ML 10 ML VIAL SQ SCH (21:19)
--- NOTE | 2018-01-31 21:50 | PN ---
PROGRESS NOTE DATE OF SERVICE: 01/31/2018. REASON FOR FOLLOW UP: 1. MSSA bacteremia. 2. Right foot diabetic foot colon with osteomyelitis. INTERVAL HISTORY: The patient is afebrile. His breathing is slightly comfortably. Denies significant chest pain, cough, no abdominal pain or any diarrhea. Denies any pain to the right foot area. EXAMINATION: Blood pressure 117/60 with a pulse of 95, temperature 98.2. He is 97% on 2 L nasal cannula. General description is an elderly male lying in bed in no distress. Respiratory system: Unlabored breathing, clear to auscultation anteriorly. Heart S1, S2. Regular rate and rhythm. Abdomen soft, no tenderness. Right foot wound currently dressed up. No obvious drainage on the dressing. LABS: Hemoglobin 11.2, white count of 11.5, BUN 108, creatinine 3.94. DIAGNOSTIC IMPRESSION AND PLAN: Patient with right diabetic foot ulcer, Sanchez with underlying osteomyelitis. Culture positive for MSSA along with anaerobic gram-negative bacilli. Flagyl will be added to the current antibiotic off the cefazolin and Cipro. Local care to continue with the Santyl. Continue supportive care. MMODL / IJN: [id number] /
[2018-01-31] MEDS: metroNIDAZOLE 500 MG TAB PO SCH (22:40)
[2018-02-01] MEDS: HEPARIN SODIUM,PORCINE 5,000 UNIT/ML 1 ML VIAL SQ SCH ×3 (00:50→17:03)
[2018-02-01] MEDS: ceFAZolin IN SWFI 2 GM/20 ML SYRINGE IVP SCH ×3 (00:50→17:03)
[2018-02-01] MEDS: CIPROFLOXACIN HCL 500 MG TAB PO SCH ×2 (04:23→20:48)
[2018-02-01 05:38] LABS: Basophils # (A) 0.1 k/uL (0-0.2); Basophils % (A) 0 %; Eosinophils # (A) 0.1 k/uL (0-0.7); Eosinophils % (A) 0 %; HCT 36.8 % (39.0-53.0); HGB 11.8 gm/dL (13.0-17.5); Lymphocytes # (A) 0.9 k/uL (1.0-4.8); Lymphocytes % (A) 6 %; MCH 31.7 pg (25.0-35.0); MCV 99.1 fL (80.0-100.0); Mean Platelet Volume 8.1; Monocytes # (A) 0.9 k/uL (0-1.0); Monocytes % (A) 6 %; Neutrophils # (A) 13.3 k/uL (1.3-7.7); Neutrophils % (A) 86 %; Platelet Count 227 k/uL (150-450); RBC 3.72 m/uL (4.30-5.90); RDW 13.4 % (11.5-15.5); WBC 15.4 k/uL (3.8-10.6)
--- NOTE | 2018-02-01 05:44 | PN ---
PROGRESS NOTE DATE OF SERVICE: 01/31/18 PRESENTING COMPLAINT: Tired. INTERVAL HISTORY: The patient is in the ICU, initially admitted with sepsis, septic shock, pneumonia, infected right big toe, possibly osteomyelitis and UTI. The patient is status post debridement of the right toe. Also had an acute OK. The patient is status post bilateral thoracentesis. The patient has been off the dobutamine drip yesterday. Also treated for oral thrush. Some shortness of breath. The pitting edema has been going down. Remains on 1 daily IV Lasix. REVIEW OF SYSTEMS: Done for constitutional, cardiovascular, GI, pulmonary; relevant findings as above. CURRENT MEDICATIONS: Reviewed include DuoNeb, aspirin, PhosLo, p.o. Cipro, Santyl, Lasix 60 mg daily, p.o. Flagyl, sodium bicarb. PHYSICAL EXAMINATION: Temperature 97.9, pulse 92, respiration 22, blood pressure 110/67, pulse ox 99 percent on 2 L. GENERAL APPEARANCE: Sitting up in bed, awake, tired-appearing. EYES: Pupils equal. Conjunctivae normal. HEENT: External appearance of nose and ears normal. Oral cavity normal. NECK: JVD unable to assess. Mass not palpable. RESPIRATORY: Effort increased. Lungs, decreased breath sounds. Some basal crackles. CARDIOVASCULAR: 1st and 2nd sounds normal. Edema in the right leg and toe decreased. ABDOMEN: Soft, nontender. Liver and spleen not palpable. PSYCHIATRY: Alert and oriented x3. Mood and affect normal. EXTREMITIES: Left below-knee amputation and wound on the right big toe. INVESTIGATIONS: White count 11.5, hemoglobin 11.9, platelets 256. Potassium 4.1, BUN 108, creatinine 3.94, phosphorus 6.1, albumin 2.7. Chest x-ray still showing some pulmonary edema. ASSESSMENT: 1. Severe sepsis, septic shock on presentation, probably from osteomyelitis of the right big toe with cultures growing MSSA and Stenotrophomonas maltophilia and possibly underlying pneumonia. 2. Sepsis with positive blood cultures with MSSA. 3. Acute urinary tract infection with cultures positive for E coli. 4. Acute non-ST elevation myocardial infarction, present on admission. 5. Chronic left below-knee amputation with prosthesis. 6. Diabetes mellitus type 2, chronically on insulin, uncontrolled with hyper- and hypoglycemia. 7. Hyperlipidemia. 8. Acute kidney injury could be acute tubular necrosis including a prerenal component with contribution from hypotension and sepsis, continues to get worse. 9. Acute lactic acidosis from sepsis. 10.Acute hypoxic respiratory failure from chronic obstructive pulmonary disease, congestive heart failure, pneumonia, remains on nasal cannula. 11.Status post debridement of right big toe by Dr. White, wanting unilateral amputation down the road. 12.Status post bilateral thoracentesis. PLAN: The patient remains on IV Lasix 60 mg daily. Antibiotics are to continue. Care was discussed with the patient and family at the bedside. I am wondering if patient may benefit again from a short course of Lasix drip. We will discuss with Nephrology. Will do a right lateral decubitus chest x-ray to see if there is still significant pleural effusion present. MMODL / IJN: [id number] /
[2018-02-01 05:48] LABS: Calcium 8.6 mg/dL (8.4-10.2); Magnesium 2.5 mg/dL (1.6-2.3); Potassium 4.4 mmol/L (3.5-5.1)
[2018-02-01 07:20] LABS: Glucose,Whole Blood 143 mg/dL (75-99)
[2018-02-01] MEDS: IPRATROPIUM-ALBUTEROL 3 ML NEB INHALATION SCH ×4 (07:57→21:05)
[2018-02-01] MEDS: CALCIUM ACETATE 667 MG CAP PO SCH ×3 (08:25→17:04)
[2018-02-01] MEDS: ASPIRIN 81 MG PO SCH (08:26)
[2018-02-01] MEDS: INSULIN ASPART 100 UNIT/ML 1 ML 10 ML VIAL SQ SCH ×4 (08:26→20:47)
[2018-02-01] MEDS: metroNIDAZOLE 500 MG TAB PO SCH ×3 (08:27→20:47)
[2018-02-01] MEDS: METOPROLOL TARTRATE 12.5 MG TAB PO SCH ×2 (08:27→20:50)
[2018-02-01] MEDS: FUROSEMIDE 10 MG/ML 10 ML VIAL IV SCH (08:27)
[2018-02-01] MEDS: SODIUM BICARBONATE TAB 650 MG TAB PO SCH ×2 (08:27→20:47)
[2018-02-01] MEDS: ATORVASTATIN 40 MG TAB PO SCH (08:27)
[2018-02-01] MEDS: FAMOTIDINE 20 MG TAB PO SCH (08:27)
[2018-02-01] MEDS: NYSTATIN 100,000 UNIT/ML SUSP 500,000 UNIT/5 ML CUP PO SCH ×4 (08:27→20:47)
--- NOTE | 2018-02-01 10:13 | XR ---
EXAMINATION TYPE: XR chest 1V DATE OF EXAM: 02/01/2018 COMPARISON: Prior chest 01/31/2018 HISTORY: Congestive heart failure and shortness of breath TECHNIQUE: Single frontal view of the chest is obtained. FINDINGS: Findings are similar to prior exam. Bilateral airspace disease persists. Heart is enlarged . No evident pneumothorax. There are likely bilateral pleural effusions. IMPRESSION: Findings compatible with congestive heart failure. Correlate for possible pneumonia. Ple ural effusions.
[2018-02-01] MEDS: COLLAGENASE 250 UNIT/GM OINTMENT 30 GM TUBE TOPICAL SCH (10:21)
[2018-02-01 11:59] LABS: Glucose,Whole Blood 106 mg/dL (75-99)
--- NOTE | 2018-02-01 12:19 | P.PN ---
Subjective Progress Note Date: 02/01/18 87-year-old male patient, known history of congestion heart failure with an ejection fraction of 20-25%, on addition to history of diabetes, hypertension and hyperlipidemia and peripheral vascular disease with below-knee amputation on the left. The patient presented to the hospital because of generalized weakness and some shortness of breath. In the emergency department the cardiac panel was positive and the patient ruled in for an acute non-ST segment elevation myocardial infarction. He had a EKG that showed a left bundle branch block pattern that was of a new onset. The patient was placed on IV heparin. The patient was placed on a Lasix drip however the patient gradually went into acute kidney injury and this was attributed to cardiorenal factors. Serum creatinine gradually came up and there was marked improvement in the urine output. The patient continued to show signs of volume overload. Subsequent chest x-ray showed large bilateral pleural effusion right more than left. At the same time that, the patient was getting short of breath and on and off he was requiring BiPAP for respiratory support. This morning he is on 15 L of oxygen by nasal cannula. The patient was also suspected to have an underlying pneumonia and the patient was covered with a combination of vancomycin and Rocephin and Zithromax. Subsequent septic workup showed a E. coli urinary tract infection and the patient was also found to have MSSA in the blood and MSSA in the left foot wound in addition to stenotrophomonas. The right foot has already been debrided by vascular surgery. Based on this, antibiotic just was were done and the patient was placed on a combination of Salt 2 g every 8 hours and ciprofloxacin 500 breath mg every 18 hours. Earlier this morning, the patient was taken off the Lasix drip and the patient was placed on Lasix 40 g every 12 hours. The patient was also started on dobutamine 2.5 g per KG per minute. 01/28/2018 the patient is feeling better. Oxidation is improved and the patient is being weaned off the FiO2 and this morning he is down to 6 L and his pulse ox is around 100%. The patient had a large volume thoracentesis yesterday and the fluid is most likely a chain state with a total protein of 2 g and an LDH of 128. This is consistent with CHF. Today's chest x-ray still showing some congestion and some residual pleural effusion on the left. The patient is currently on a combination of dobutamine drip and Lasix. Lasix and a dose of 43 g IV push every 12 hours. He is producing good amount of urine output. His net fluid balance over the past 24 hours is in the order of 1.1 L and another 2.3 L since this morning. As such is improving his urine output and the patient's is doing well. The creatinine today's at 3.5 and a Lasix dose was dropped down to 40 g every 12 hours. No chest pain. Still on same antibiotic coverage regarding his septic event as the patient had a MSSA bacteremia from a diabetic wound infection. He has undergone the appropriate debridement. He remains on a combination of ciprofloxacin and Kefzol as an antibiotic coverage. No altered mentation. No chest pain. Tolerating diet. No nausea or vomiting. No other complaints otherwise. He has a component of anion gap metabolic acidosis of bicarb level of 19. On 01/29/2018, the patient is not having any active complaints. He is less short of breath especially when he lays down. His chest x-ray showing left- sided pleural effusion and pulmonary edema. The patient is an acute CHF and the patient is on dobutamine at 5 mics per KG per minute and he is also on Lasix 40 g IV push every 12 hours. Urine output is adequate and the patient is in a negative fluid balance. The net fluid balance for yesterday was 9 80 mL negative and the day prior to that was -2.3 L. The patient is producing adequate amount of urine output. Renal function is still in. In the creatinine is on the rise. The patient suffered an ATN probably related to his underlying sepsis. As mentioned the patient had a diabetic foot ulcers and osteomyelitis with secondary septicemia with MSSA. There is also stenotrophomonas in the leg wound. No encephalopathy. Awake and alert. Following commands and answering questions. Oxidation is improved and the patient has been weaned down to 4 L. I performed a second thoracentesis on the left lung and drained approximately 800 mL of pleural fluid from the pleural space without any complications. Chest x-ray is to follow. He is afebrile. Tolerating diet. No nausea or vomiting. On 01/30/2018, I'm seeing this patient for a follow-up in the intensive care unit. The patient was in acute hypoxic respiratory failure. His CHF was managed. Initially had a right-sided thoracentesis. Subsequently I performed a left-sided thoracentesis. His own 40s about 2 by nasal cannula. On today's chest x-ray there is worsening consolidation of the right lung. Left lung is clear and there is no excessive pleural fluid within the thorax. As such, I think is reasonable to do a CAT scan tomorrow assess the right lung findings special that there is interval worsening in the right lung consolidation. The patient is feeling the same. In fact is feeling slightly better with the bilateral thoracenteses that was done. He remains on a combination of ciprofloxacin and IV Kefzol regarding the MSSA septicemia and the stenotrophomonas wound infection. The patient is osteomyelitis and diabetic foot ulcer on the right foot. The patient is hemodynamically stable. Renal function continues to be impaired. Creatinine today's at 3.95 with a BUN of 101. The values are slightly worse compared to yesterday. The patient on IV Lasix 40 mg IV push every 8 hours. The patient was also given dobutamine for the past 3 days and dobutamine drip was discontinued today by cardiology. He still has some edema lower extremities however his overall fluid balance is improved significantly. The patient is in a negative fluid balance of 2.1 L over the past 24 hours 1 L for the day prior to that and 2.3 L on 2017. As such she's been negative for the past 3-4 days at least. The creatinine is up to 3.9. I think is reasonable to His Diuretics for Now. We'll Discuss This Also with Nephrology. No Nausea. No Vomiting. No Abdominal Pain. No Chest Pain. Wound Care Is Being Done to His Right Foot. On , the patient is doing well. The patient is on oxygen at 2 L per minute nasal cannula. A CAT scan of the chest was done yesterday and showed some residual right-sided pleural effusion and there is a consolidation within the right upper lung area which I think is most likely an atypical presentation of an acute pulmonary edema. The patient does not look clinically to have any significant pneumonia. No significant cough or sputum production. No hemoptysis or pleurisy. He has responded nicely to diuretics. He has responded also earlier today combination of dobutamine and Lasix. I drained his lungs bilaterally and the drainage fluid from the right was a transudate. As such, we'll going to continue the Lasix milligrams IV push every 24 hours and the patient is producing adequate amount of urine output. Antibiotic coverage will be kept the same and the patient is on a combination of IV Kefzol and ciprofloxacin regarding the osteomyelitis/diabetic foot ulcer. He had MSSA septicemia. Septic emboli to his right lung is felt to be less likely. Nephrology is on the case. Renal function is stable with a creatinine of 3.9 on today's evaluation. Hemoglobin is stable at 11.9. No syncopal leukocytosis. No altered mentation. He is known to have cardiomyopathy with poor ejection fraction of around 20-25%. 02/01/2018, patient is being seen in the follow-up. No respiratory distress. Repeat chest x-ray was done today and the patient is showing CHF with some probable improvement compared to yesterday chest x-ray findings. As mentioned earlier the patient also has still some residual [place] pleural effusions. The patient on Lasix 40 mg IV push every 24 hours. Renal function is slightly impaired compared to yesterday and the creatinine is up to 4.2. Despite all this, the patient continues to make excellent urine output and she has produced approximately 2.5 L of urine output yesterday and the net fluid balance is -1.5 L. He is not having any respiratory distress. The wound cultures will be obtained and the patient is still on a combination of IV Kefzol and ciprofloxacin. ID is on the case. Local wound care is being done. White cell count is at 15.4. No fever. No chills. No altered mentation. A repeat echocardiogram was done and there is no significant change in the LV function as the patient has systolic failure with an ejection fraction of 20-25%. Objective - Vital Signs Vital signs: Vital Signs Temp 98.6 F 02/01/18 09:00 Pulse 88 02/01/18 12:01 Resp 24 02/01/18 09:00 BP 112/68 02/01/18 09:00 Pulse Ox 97 02/01/18 09:00 Intake & Output 01/31/18 02/01/18 02/01/18 18:59 06:59 18:59 Intake Total 960 200 Output Total 1050 400 Balance -90 -400 200 Weight 99.2 kg Intake: Oral 960 200 Output: Urine 1050 400 Other: Voiding Method Urinal Urinal Urinal - Exam General appearance: alert, in no apparent distress very pleasant, basically asymptomatic during my evaluation. Head exam: atraumatic, normocephalic Eye exam: normal appearance, PERRLA, EOMI, no icterus. ENT exam: mucous membranes dry Neck exam: normal inspection. Absent: tenderness, meningismus no neck masses, no JVD. Respiratory exam: Improvement in the sound bilaterally with some minimal residual dullness in the left lung base.. Crackles, no rhonchi, no wheezes. Cardiovascular Exam: regular rate, normal rhythm no S3 gallop, no murmur was appreciated. GI/Abdominal exam: soft. Nontender, no megaly, no rebound, no guarding. Extremities exam:normal inspection, normal capillary refill. Absent: pedal edema there is evidence of left below knee amputation. There is also evidence of deep ulcer at the base of the right big toe medially. Some discharge noted. The patient has a below knee amputation on the left Neurological exam: Alert, oriented 3, no gross focal neurologic deficit. Psychiatric exam: normal affect, normal mood, normal mental status examination. Skin exam: Present: 2.5 cm ulcer at the base of the right big toe medially. With serous drainage noted. - Labs CBC & Chem 7: 02/01/18 05:21 02/01/18 05:21 Labs: Abnormal Lab Results - Last 24 Hours (Table) 01/31/18 01/31/18 02/01/18 Range/Units 17:20 21:13 05:21 WBC 15.4 H (3.8-10.6) k/uL RBC 3.72 L (4.30-5.90) m/uL Hgb 11.8 L (13.0-17.5) gm/dL Hct 36.8 L (39.0-53.0) % Neutrophils # 13.3 H (1.3-7.7) k/uL Lymphocytes # 0.9 L (1.0-4.8) k/uL Sodium (137-145) mmol/L Chloride (98-107) mmol/L BUN (9-20) mg/dL Creatinine (0.66-1.25) mg/dL Glucose (74-99) mg/dL POC Glucose (mg/dL) 149 H 188 H (75-99) mg/dL Magnesium (1.6-2.3) mg/dL 02/01/18 02/01/18 02/01/18 Range/Units 05:21 07:16 11:58 WBC (3.8-10.6) k/uL RBC (4.30-5.90) m/uL Hgb (13.0-17.5) gm/dL Hct (39.0-53.0) % Neutrophils # (1.3-7.7) k/uL Lymphocytes # (1.0-4.8) k/uL Sodium 133 L (137-145) mmol/L Chloride 96 L (98-107) mmol/L BUN 114 H* (9-20) mg/dL Creatinine 4.21 H (0.66-1.25) mg/dL Glucose 143 H (74-99) mg/dL POC Glucose (mg/dL) 143 H 106 H (75-99) mg/dL Magnesium 2.5 H (1.6-2.3) mg/dL Microbiology - Last 24 Hours (Table) 01/25/18 18:13 Blood Culture - Final Blood No Growth after 144 hours 01/27/18 10:20 Gram Stain - Final Pleural Fluid Body Fluid Culture - Final Assessment and Plan Plan: Assessment 1 acute hypoxic respiratory failure , secondary to massive bilateral pleural effusions and pulmonary edema. Patient was optimized with bilateral thoracentesis. The oxygenation is improved significantly. Nevertheless, the patient continued to have consolidation which is asymmetric more so on the right. I performed a CAT scan of the chest. I'm more convinced that this is a CHF findings are limited to pneumonia. The patient has residual right-sided pleural effusion and the patient is on 2 L about 2 by nasal cannula and there is no need for any further drainage. On 02/01/2018, the findings are slightly improved in terms of the chest x-ray and the patient is still diuresing well with IV Lasix systemic vascular 24 hours. He remains negative fluid balance and he continues to produce adequate amount of urine output. I may decide that later stage to perform another thoracentesis on the right as the patient has developed recurrent right-sided pleural effusion and some on the left. This is essentially related to CHF. 2 systolic heart failure with ejection fraction of 20-25%, the patient was taken off the dobutamine and the patient is on Lasix 60 g IV push every 24 hours. 3 acute kidney injury with progressive worsening in the renal function. This is likely secondary to cardiorenal factors. Possibly an ATN also. The patient is producing adequate amount of urine output. Renal function continues to get worse probably related to cardiorenal factors and diuretics. The patient is producing adequate amount of urine output and the patient is currently on 60 mg IV Lasix for 24 hours. There is interval worsening of the renal function and I would leave the issue of ongoing diuresis to nephrology. The patient currently is on IV Lasix to. 4 staphylococcal septicemia/MSSA likely secondary right foot infection, post debridement and the patient is currently on IV Kefzol and the patient is also on ciprofloxacin for the stenotrophomonas and there wounds. Repeat cultures of been sent and antibiotic adjustment to be done accordingly. 5 E. coli urine tract infection 6 coronary artery disease with an acute non-ST segment elevation myocardial infarction 7 left bundle branch block pattern 8 diabetic foot ulcer involving the right foot post debridement with cultures indicating stenotrophomonas and MSSA. 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 9 peripheral vascular disease with left below-knee amputation 10 diabetes mellitus 11 hypertension 12 hyperlipidemia 13 osteoarthritis Plan Keep the patient ICU for 24 hours. The method of diuretics will be left up to cardiology. I can give him another 24 hours of IV Lasix and optimize further as volume status. Repeat chest x-ray in the morning. Awaiting with cultures. Keep same antibiotic coverage. We'll continue to follow.
[2018-02-01 13:01] LABS: Appearance,Urine Cloudy (Clear); Bilirubin,Urine Negative (Negative); Blood,Urine Moderate (Negative); Color,Urine Yellow; Glucose,Urine (UA) Negative (Negative); Ketones,Urine Negative (Negative); Leukocyte Esterase,Urine Small (Negative); Mucus,Urine Rare /hpf; Nitrite,Urine Negative (Negative); Protein,Urine 1+ (Negative); RBC,Urine 25 /hpf (0-5); Specific Gravity,Urine 1.011 (1.001-1.035); Urobilinogen,Urine <2.0 mg/dL (<2.0); WBC,Urine 27 /hpf (0-5)
--- NOTE | 2018-02-01 16:33 | PN ---
PROGRESS NOTE DATE OF SERVICE: 02/01/2018 REASON FOR FOLLOWUP: 1. MSSA bacteremia. 2. Right diabetic foot infection with osteomyelitis, acute. INTERVAL HISTORY: The patient is currently afebrile. He seems to be breathing more comfortably. Denies significant chest pain. Occasional cough. No abdominal pain. Denies any pain to the right foot wound area. PHYSICAL EXAMINATION: Blood pressure is 113/67 with a pulse of 89, temperature 96.1. He is 98% on 2 L nasal cannula. General description is an elderly male lying in bed in no distress. RESPIRATORY SYSTEM: Unlabored breathing. Clear to auscultation anteriorly. HEART: S1, S2. Regular rate and rhythm. ABDOMEN: Soft. No tenderness. LABS: Hemoglobin is 11.8, white count 15.4 with a BUN of 114, creatinine 4.21. DIAGNOSTIC IMPRESSION AND PLAN: Patient with methicillin-susceptible Staphylococcus aeruginosa bacteremia in a patient who did have a right diabetic foot infection with underlying osteomyelitis. The patient at this time is covered with cefazolin, Cipro and Flagyl. Will continue with local wound care to the right foot wound with Santyl followed by moist dressing. Continue with supportive care. MMODL / IJN: [id number] /
--- NOTE | 2018-02-01 17:12 | PN ---
PROGRESS NOTE Mr. Clarke is doing better. Today his ejection fraction in the 25-30 percent range with sepsis. He is feeling better. His bilateral pleural effusions have improved. Remains in sinus rhythm with PACs. Vitals are stable. S1-S2 heard normally. Lungs reveal improved air entry. Abdomen and lower extremity exam unchanged. Plan is to increase activity. Move him to telemetry today. MMODL / IJN: [id number] /
[2018-02-01 17:32] LABS: Glucose,Whole Blood 155 mg/dL (75-99)
[2018-02-01] MEDS: LATANOPROST 0.005% OPHTH DROPS 2.5 ML BTL BOTH EYES SCH (20:47)
[2018-02-01] MEDS: INSULIN DETEMIR 100 UNIT/ML 10 ML VIAL SQ SCH (20:47)
[2018-02-01 20:48] LABS: Glucose,Whole Blood 216 mg/dL (75-99)
[2018-02-01] MEDS: PSYLLIUM HUSK 100% 6 GM PACKET PO SCH (21:09)
--- NOTE | 2018-02-01 21:30 | PN ---
PROGRESS NOTE The patient is seen for followup for the acute kidney injury and CHF and volume overload. The patient has had good urine output. He had about 2.5 L overnight. Breathing status is fair; however, according to family, patient is a little bit more sleepy. His creatinine has increased to 4.21 today. EXAMINATION: Blood pressure is 105/66, heart rate of 89 per minute. Patient is afebrile. HEART: S1, S2. LUNGS: Bilateral breath sounds are heard. Abdomen is soft, nontender. Lower extremities show improving edema. There is 1+ edema in his right lower extremity. The foot is currently wrapped. CASE PLANNER is grossly intact. Patient moving all 4 extremities. LABS: Sodium 133, potassium 4.4, BUN 114, serum creatinine 4.21. Magnesium 2.5. Chest x-ray still shows evidence of CHF. ASSESSMENT: 1. Acute kidney injury, initially cardiorenal. Renal function has recently been worsening. The patient's diuretics have been decreased. His chest x-ray still shows evidence of CHF; however, it appears that we have diuresed him fairly. I will decrease the dose of Lasix to 40 mg. We will give him 2 doses today and then hold tomorrow morning's dose, depending on his creatinine. 2. Hyperphosphatemia secondary to renal failure, maintained on phosphate binders. 3. Urinary tract infection with Escherichia coli. 4. Right foot wound which grew anaerobic bacteria, Staphylococcus aureus and Stenotrophomonas maltophilia. PLAN: Decrease Lasix to 40 mg b.i.d. for today and I will hold tomorrow's dose, depending on his serum creatinine level. Patient continues to have good urine output, although his chest x-ray still continues to show evidence of CHF. Overall, I believe his volume status has improved over the past 1 week. The patient is not on any nephrotoxic agents. If his renal function continues to deteriorate significantly, he may need renal replacement therapy. MMODL / IJN: [id number] /
--- NOTE | 2018-02-01 22:08 | PN ---
PROGRESS NOTE DATE OF SERVICE: 02/01/2018 PRESENTING COMPLAINT: Tired. INTERVAL HISTORY: The patient is in the ICU, admitted with sepsis, septic shock, pneumonia, right big toe possible osteomyelitis, UTI, acute ND. The patient is status post debridement of the right big toe. Also, patient is status post bilateral thoracentesis. Breathing is getting better. Edema is coming down. Eating better. Last bowel movement was 2 days ago. REVIEW OF SYSTEMS: Done for constitutional, cardiovascular, GI, pulmonary; relevant findings as above. CURRENT MEDICATIONS: Reviewed that include: 1. Aspirin. 2. Lipitor. 3. Cipro. 4. IV Lasix 40 mg. 5. Levemir. 6. Lopressor 12.5 b.i.d. 7. Flagyl. EXAMINATION: Temperature 96.1, pulse 85, respirations 29, blood pressure 113/67, pulse ox 98% percent on 2L. GENERAL APPEARANCE: Sitting up, awake. EYES: Pupils equal. Conjunctivae normal. HEENT: External nose and ears normal. Oral cavity normal. NECK: JVD unable to assess. Mass not palpable. Respiratory effort increased. LUNGS: Decreased breath sounds. CARDIOVASCULAR: First and second sounds normal. Decreased edema in the right leg. Right toe wound. ABDOMEN: Soft, nontender. Liver and spleen not palpable. PSYCHIATRY: Alert and oriented x3. Mood and affect normal. EXTREMITIES: Left below-knee amputation. INVESTIGATIONS: White count 15.4, hemoglobin 11.8, platelets 227. Potassium 4.4 BUN 114, creatinine 4.21. Chest x-ray showing pulmonary edema, questionable infiltrate. ASSESSMENT: 1. Severe sepsis, septic shock on presentation, probably from osteomyelitis of the right big toe. Cultures growing methicillin-sensitive Staphylococcus aureus and Stenotrophomonas maltophilia and positive for also underlying pneumonia. 2. Sepsis with positive blood cultures with methicillin-sensitive Staphylococcus aureus. 3. Acute urinary tract infection with cultures positive for Escherichia coli. 4. Acute non-ST elevation myocardial infarction, present on admission. 5. Chronic left below-knee amputation with prosthesis. 6. Diabetes mellitus type 2, chronically on insulin, uncontrolled with hyper- and hypoglycemia. 7. Hyperlipidemia. 8. Acute kidney injury, could be ATN, including prerenal component with contribution from hypotension and sepsis. Continues to get worse. 9. Acute lactic acidosis from sepsis. 10.Acute hypoxic respiratory failure from chronic obstructive pulmonary disease, congestive heart failure, pneumonia on nasal cannula. 11.Status post debridement of right big toe by Dr. White. May need amputation. 12.Status post bilateral thoracentesis. At this point, continue current medication and treatment plan. Concerned about the patient's renal function, progresses to get worse. Also discussed with Dr. Otoole. The patient remains in negative fluid balance. Will keep a close eye. Concern if the patient may not be getting renal replacement therapy. MMODL / IJN: [id number] /
[2018-02-02] MEDS: ceFAZolin IN SWFI 2 GM/20 ML SYRINGE IVP SCH ×2 (00:26→08:50)
[2018-02-02] MEDS: HEPARIN SODIUM,PORCINE 5,000 UNIT/ML 1 ML VIAL SQ SCH ×3 (00:26→15:59)
[2018-02-02 05:13] LABS: Basophils # (A) 0.1 k/uL (0-0.2); Basophils % (A) 0 %; Eosinophils # (A) 0.1 k/uL (0-0.7); Eosinophils % (A) 1 %; HCT 38.3 % (39.0-53.0); HGB 11.9 gm/dL (13.0-17.5); Lymphocytes # (A) 0.9 k/uL (1.0-4.8); Lymphocytes % (A) 5 %; MCHC 31.2 g/dL (31.0-37.0); MCV 99.5 fL (80.0-100.0); Mean Platelet Volume 8.6; Monocytes % (A) 6 %; Neutrophils # (A) 15.3 k/uL (1.3-7.7); Neutrophils % (A) 87 %; Platelet Count 247 k/uL (150-450); RBC 3.85 m/uL (4.30-5.90); RDW 13.4 % (11.5-15.5); WBC 17.5 k/uL (3.8-10.6)
[2018-02-02 05:31] LABS: Calcium 8.7 mg/dL (8.4-10.2); Magnesium 2.7 mg/dL (1.6-2.3); Potassium 4.6 mmol/L (3.5-5.1)
[2018-02-02 08:10] LABS: Glucose,Whole Blood 135 mg/dL (75-99)
[2018-02-02] MEDS: IPRATROPIUM-ALBUTEROL 3 ML NEB INHALATION SCH ×4 (08:45→19:51)
[2018-02-02] MEDS: CALCIUM ACETATE 667 MG CAP PO SCH ×3 (08:46→17:32)
[2018-02-02] MEDS: INSULIN ASPART 100 UNIT/ML 1 ML 10 ML VIAL SQ SCH ×4 (08:46→20:37)
[2018-02-02] MEDS: metroNIDAZOLE 500 MG TAB PO SCH ×3 (08:47→20:38)
[2018-02-02] MEDS: NYSTATIN 100,000 UNIT/ML SUSP 500,000 UNIT/5 ML CUP PO SCH ×4 (08:47→20:38)
[2018-02-02] MEDS: METOPROLOL TARTRATE 12.5 MG TAB PO SCH ×2 (08:47→20:38)
[2018-02-02] MEDS: ASPIRIN 81 MG PO SCH (08:47)
[2018-02-02] MEDS: ATORVASTATIN 40 MG TAB PO SCH (08:47)
[2018-02-02] MEDS: PSYLLIUM HUSK 100% 6 GM PACKET PO SCH (08:47)
[2018-02-02] MEDS: FAMOTIDINE 20 MG TAB PO SCH (08:47)
[2018-02-02] MEDS: SODIUM BICARBONATE TAB 650 MG TAB PO SCH ×2 (08:47→20:38)
[2018-02-02] MEDS ORDERED: FUROSEMIDE 10 MG/ML 4 ML VIAL IV SCH (09:00)
--- NOTE | 2018-02-02 09:13 | P.PN ---
Subjective Progress Note Date: 02/02/18 87-year-old male patient, known history of congestion heart failure with an ejection fraction of 20-25%, on addition to history of diabetes, hypertension and hyperlipidemia and peripheral vascular disease with below-knee amputation on the left. The patient presented to the hospital because of generalized weakness and some shortness of breath. In the emergency department the cardiac panel was positive and the patient ruled in for an acute non-ST segment elevation myocardial infarction. He had a EKG that showed a left bundle branch block pattern that was of a new onset. The patient was placed on IV heparin. The patient was placed on a Lasix drip however the patient gradually went into acute kidney injury and this was attributed to cardiorenal factors. Serum creatinine gradually came up and there was marked improvement in the urine output. The patient continued to show signs of volume overload. Subsequent chest x-ray showed large bilateral pleural effusion right more than left. At the same time that, the patient was getting short of breath and on and off he was requiring BiPAP for respiratory support. This morning he is on 15 L of oxygen by nasal cannula. The patient was also suspected to have an underlying pneumonia and the patient was covered with a combination of vancomycin and Rocephin and Zithromax. Subsequent septic workup showed a E. coli urinary tract infection and the patient was also found to have MSSA in the blood and MSSA in the left foot wound in addition to stenotrophomonas. The right foot has already been debrided by vascular surgery. Based on this, antibiotic just was were done and the patient was placed on a combination of Salt 2 g every 8 hours and ciprofloxacin 500 breath mg every 18 hours. Earlier this morning, the patient was taken off the Lasix drip and the patient was placed on Lasix 40 g every 12 hours. The patient was also started on dobutamine 2.5 g per KG per minute. 01/28/2018 the patient is feeling better. Oxidation is improved and the patient is being weaned off the FiO2 and this morning he is down to 6 L and his pulse ox is around 100%. The patient had a large volume thoracentesis yesterday and the fluid is most likely a chain state with a total protein of 2 g and an LDH of 128. This is consistent with CHF. Today's chest x-ray still showing some congestion and some residual pleural effusion on the left. The patient is currently on a combination of dobutamine drip and Lasix. Lasix and a dose of 43 g IV push every 12 hours. He is producing good amount of urine output. His net fluid balance over the past 24 hours is in the order of 1.1 L and another 2.3 L since this morning. As such is improving his urine output and the patient's is doing well. The creatinine today's at 3.5 and a Lasix dose was dropped down to 40 g every 12 hours. No chest pain. Still on same antibiotic coverage regarding his septic event as the patient had a MSSA bacteremia from a diabetic wound infection. He has undergone the appropriate debridement. He remains on a combination of ciprofloxacin and Kefzol as an antibiotic coverage. No altered mentation. No chest pain. Tolerating diet. No nausea or vomiting. No other complaints otherwise. He has a component of anion gap metabolic acidosis of bicarb level of 19. On 01/29/2018, the patient is not having any active complaints. He is less short of breath especially when he lays down. His chest x-ray showing left- sided pleural effusion and pulmonary edema. The patient is an acute CHF and the patient is on dobutamine at 5 mics per KG per minute and he is also on Lasix 40 g IV push every 12 hours. Urine output is adequate and the patient is in a negative fluid balance. The net fluid balance for yesterday was 9 80 mL negative and the day prior to that was -2.3 L. The patient is producing adequate amount of urine output. Renal function is still in. In the creatinine is on the rise. The patient suffered an ATN probably related to his underlying sepsis. As mentioned the patient had a diabetic foot ulcers and osteomyelitis with secondary septicemia with MSSA. There is also stenotrophomonas in the leg wound. No encephalopathy. Awake and alert. Following commands and answering questions. Oxidation is improved and the patient has been weaned down to 4 L. I performed a second thoracentesis on the left lung and drained approximately 800 mL of pleural fluid from the pleural space without any complications. Chest x-ray is to follow. He is afebrile. Tolerating diet. No nausea or vomiting. On 01/30/2018, I'm seeing this patient for a follow-up in the intensive care unit. The patient was in acute hypoxic respiratory failure. His CHF was managed. Initially had a right-sided thoracentesis. Subsequently I performed a left-sided thoracentesis. His own 40s about 2 by nasal cannula. On today's chest x-ray there is worsening consolidation of the right lung. Left lung is clear and there is no excessive pleural fluid within the thorax. As such, I think is reasonable to do a CAT scan tomorrow assess the right lung findings special that there is interval worsening in the right lung consolidation. The patient is feeling the same. In fact is feeling slightly better with the bilateral thoracenteses that was done. He remains on a combination of ciprofloxacin and IV Kefzol regarding the MSSA septicemia and the stenotrophomonas wound infection. The patient is osteomyelitis and diabetic foot ulcer on the right foot. The patient is hemodynamically stable. Renal function continues to be impaired. Creatinine today's at 3.95 with a BUN of 101. The values are slightly worse compared to yesterday. The patient on IV Lasix 40 mg IV push every 8 hours. The patient was also given dobutamine for the past 3 days and dobutamine drip was discontinued today by cardiology. He still has some edema lower extremities however his overall fluid balance is improved significantly. The patient is in a negative fluid balance of 2.1 L over the past 24 hours 1 L for the day prior to that and 2.3 L on 2017. As such she's been negative for the past 3-4 days at least. The creatinine is up to 3.9. I think is reasonable to His Diuretics for Now. We'll Discuss This Also with Nephrology. No Nausea. No Vomiting. No Abdominal Pain. No Chest Pain. Wound Care Is Being Done to His Right Foot. On , the patient is doing well. The patient is on oxygen at 2 L per minute nasal cannula. A CAT scan of the chest was done yesterday and showed some residual right-sided pleural effusion and there is a consolidation within the right upper lung area which I think is most likely an atypical presentation of an acute pulmonary edema. The patient does not look clinically to have any significant pneumonia. No significant cough or sputum production. No hemoptysis or pleurisy. He has responded nicely to diuretics. He has responded also earlier today combination of dobutamine and Lasix. I drained his lungs bilaterally and the drainage fluid from the right was a transudate. As such, we'll going to continue the Lasix milligrams IV push every 24 hours and the patient is producing adequate amount of urine output. Antibiotic coverage will be kept the same and the patient is on a combination of IV Kefzol and ciprofloxacin regarding the osteomyelitis/diabetic foot ulcer. He had MSSA septicemia. Septic emboli to his right lung is felt to be less likely. Nephrology is on the case. Renal function is stable with a creatinine of 3.9 on today's evaluation. Hemoglobin is stable at 11.9. No syncopal leukocytosis. No altered mentation. He is known to have cardiomyopathy with poor ejection fraction of around 20-25%. 02/01/2018, patient is being seen in the follow-up. No respiratory distress. Repeat chest x-ray was done today and the patient is showing CHF with some probable improvement compared to yesterday chest x-ray findings. As mentioned earlier the patient also has still some residual [place] pleural effusions. The patient on Lasix 40 mg IV push every 24 hours. Renal function is slightly impaired compared to yesterday and the creatinine is up to 4.2. Despite all this, the patient continues to make excellent urine output and she has produced approximately 2.5 L of urine output yesterday and the net fluid balance is -1.5 L. He is not having any respiratory distress. The wound cultures will be obtained and the patient is still on a combination of IV Kefzol and ciprofloxacin. ID is on the case. Local wound care is being done. White cell count is at 15.4. No fever. No chills. No altered mentation. A repeat echocardiogram was done and there is no significant change in the LV function as the patient has systolic failure with an ejection fraction of 20-25%. 02/02/2018, I'm seeing this patient for a follow-up. No new complaints. Currently is on room air. Chest x-ray still showing pulmonary edema and bilateral pleural effusion. I performed a bedside thoracentesis on the right a total of 1.35 L of pleural fluid was aspirated from the right lung. Chest x- rays to follow. I realized the patient's renal functions progressive getting worse. Creatinine is up to 4.6. I'm going to stop the IV Lasix for now. The patient is a negative fluid balance. He still producing adequate amount of urine output. No fever. No chills. White cell count is slightly elevated at 17 and the patient's antibiotics have been adjusted and Flagyl was also added for anaerobic coverage regarding his diabetic foot infection. ID is on the case. He is awake. He is alert. He is no specific complaints for now. He is not having any labored breathing at this point in time. Objective - Vital Signs Vital signs: Vital Signs Temp 96.7 F L 02/01/18 16:00 Pulse 80 02/02/18 07:00 Resp 23 02/02/18 07:00 BP 101/67 02/02/18 04:00 Pulse Ox 95 02/02/18 07:00 Intake & Output 02/01/18 02/02/18 02/02/18 18:59 06:59 18:59 Intake Total 200 Output Total 380 500 Balance -180 -500 Weight 99 kg Intake: Oral 200 Output: Urine 380 500 Other: Voiding Method Urinal Urinal - Exam General appearance: alert, in no apparent distress very pleasant, basically asymptomatic during my evaluation. Head exam: atraumatic, normocephalic Eye exam: normal appearance, PERRLA, EOMI, no icterus. ENT exam: mucous membranes dry Neck exam: normal inspection. Absent: tenderness, meningismus no neck masses, no JVD. Respiratory exam: Improvement in the sound bilaterally with some minimal residual dullness in the left lung base.. Crackles, no rhonchi, no wheezes. Cardiovascular Exam: regular rate, normal rhythm no S3 gallop, no murmur was appreciated. GI/Abdominal exam: soft. Nontender, no megaly, no rebound, no guarding. Extremities exam:normal inspection, normal capillary refill. Absent: pedal edema there is evidence of left below knee amputation. There is also evidence of deep ulcer at the base of the right big toe medially. Some discharge noted. The patient has a below knee amputation on the left Neurological exam: Alert, oriented 3, no gross focal neurologic deficit. Psychiatric exam: normal affect, normal mood, normal mental status examination. Skin exam: Present: 2.5 cm ulcer at the base of the right big toe medially. With serous drainage noted. - Labs CBC & Chem 7: 02/02/18 04:59 02/02/18 04:59 Labs: Abnormal Lab Results - Last 24 Hours (Table) 0902/01/18 02/01/18 Range/Units 11:58 12:35 17:29 WBC (3.8-10.6) k/uL RBC (4.30-5.90) m/uL Hgb (13.0-17.5) gm/dL Hct (39.0-53.0) % Neutrophils # (1.3-7.7) k/uL Lymphocytes # (1.0-4.8) k/uL BUN (9-20) mg/dL Creatinine (0.66-1.25) mg/dL Glucose (74-99) mg/dL POC Glucose (mg/dL) 106 H 155 H (75-99) mg/dL Magnesium (1.6-2.3) mg/dL Urine Protein 1+ H (Negative) Urine Blood Moderate H (Negative) Ur Leukocyte Esterase Small H (Negative) Urine RBC 25 H (0-5) /hpf Urine WBC 27 H (0-5) /hpf Urine Mucus Rare H (None) /hpf 02/01/18 02/02/18 02/02/18 Range/Units 20:46 04:59 04:59 WBC 17.5 H (3.8-10.6) k/uL RBC 3.85 L (4.30-5.90) m/uL Hgb 11.9 L (13.0-17.5) gm/dL Hct 38.3 L (39.0-53.0) % Neutrophils # 15.3 H (1.3-7.7) k/uL Lymphocytes # 0.9 L (1.0-4.8) k/uL BUN 117 H* (9-20) mg/dL Creatinine 4.72 H (0.66-1.25) mg/dL Glucose 142 H (74-99) mg/dL POC Glucose (mg/dL) 216 H (75-99) mg/dL Magnesium 2.7 H (1.6-2.3) mg/dL Urine Protein (Negative) Urine Blood (Negative) Ur Leukocyte Esterase (Negative) Urine RBC (0-5) /hpf Urine WBC (0-5) /hpf Urine Mucus (None) /hpf 02/02/18 Range/Units 08:04 WBC (3.8-10.6) k/uL RBC (4.30-5.90) m/uL Hgb (13.0-17.5) gm/dL Hct (39.0-53.0) % Neutrophils # (1.3-7.7) k/uL Lymphocytes # (1.0-4.8) k/uL BUN (9-20) mg/dL Creatinine (0.66-1.25) mg/dL Glucose (74-99) mg/dL POC Glucose (mg/dL) 135 H (75-99) mg/dL Magnesium (1.6-2.3) mg/dL Urine Protein (Negative) Urine Blood (Negative) Ur Leukocyte Esterase (Negative) Urine RBC (0-5) /hpf Urine WBC (0-5) /hpf Urine Mucus (None) /hpf Assessment and Plan Plan: Assessment 1 acute hypoxic respiratory failure , secondary to massive bilateral pleural effusions and pulmonary edema. And the patient had bilateral thoracenteses earlier and another thoracentesis was done on the right side with a total of 1.3 L of fluid was aspirated again from the right lung. Follow-up chest x-ray pending. We'll hold diuretics for now because of progressive worsening renal function. 2 systolic heart failure with ejection fraction of 20-25%, the patient was taken off the dobutamine and the patient was diuresed adequately and currently Lasix was placed on hold because of worsening renal function 3 acute kidney injury with progressive worsening in the renal function. The creatinine is up to 4.7 and will hold diuretics for now. 4 staphylococcal septicemia/MSSA likely secondary right foot infection, post debridement and the patient is currently on IV Kefzol and the patient is also on ciprofloxacin for the stenotrophomonas and there wounds. Repeat cultures of been sent and antibiotic adjustment to be done accordingly. 5 E. coli urine tract infection 6 coronary artery disease with an acute non-ST segment elevation myocardial infarction 7 left bundle branch block pattern 8 diabetic foot ulcer involving the right foot post debridement with cultures indicating stenotrophomonas and MSSA. 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 There is concern for a anaerobic infection addition of Flagyl was also added by infectious disease. 9 peripheral vascular disease with left below-knee amputation 10 diabetes mellitus 11 hypertension 12 hyperlipidemia 13 osteoarthritis Plan Keep the patient ICU for 24 hours. We will hold the Lasix for now. A right- sided thoracentesis was done. We'll made with the left side also. Monitor renal function. Patient is currently on room air. The renal function is still be monitored. We'll continue to follow.
--- NOTE | 2018-02-02 09:27 | XR ---
EXAMINATION TYPE: XR chest 1V DATE OF EXAM: 02/02/2018 COMPARISON: Prior chest x-ray 02/01/2018 HISTORY: Shortness of breath TECHNIQUE: Single frontal view of the chest is obtained. FINDINGS: Bilateral airspace disease persists. There are associated pleural effusions. Heart is enla rged. No evident pneumothorax. IMPRESSION: Diffuse bilateral airspace disease is similar to prior exam. Correlate for congestive he art failure, pneumonia, follow-up recommended.
--- NOTE | 2018-02-02 09:30 | XR ---
EXAMINATION TYPE: XR chest 1V portable DATE OF EXAM: 02/02/2018 COMPARISON: Prior chest x-ray 02/02/2018 and earlier time HISTORY: Status post thoracentesis TECHNIQUE: Single frontal view of the chest is obtained. FINDINGS: There is improved aeration within the right lung. No sizable pneumothorax. Difficult to ex clude minimal pneumothorax due to technique. IMPRESSION: Post thoracentesis, no evident complication, follow-up as indicated, technique is limite d
--- NOTE | 2018-02-02 09:55 | PCN ---
PROCEDURE NOTE PROCEDURE: Right-sided thoracentesis without ultrasound guidance. PREOPERATIVE DIAGNOSIS: Right-side pleural effusion. POSTOPERATIVE DIAGNOSIS: Right-side pleural effusion. Indication Pleural effusion. A time-out was completed verifying correct patient, procedure, site, positioning, and implant (s) or special equipment if applicable. Ultrasound guidance was not used and appropriate fluid pocket was identified and marked. Patient was positioned, prepped and draped in usual sterile fashion. Lidocaine was used to anesthetize the area. A Thoracentesis catheter was introduced into the pleural space and fluid was removed. Blood loss was none. A chest x-ray was ordered to evaluate for pneumothorax. Total Fluid Removed was 1.35 L. Color of Fluid Turbid yellowish pleural effusion. Fluid sent for appropriate laboratory tests. Patient tolerated the procedure well and there were no complications. No bedside complications or bleeding. Chest x-ray to follow. MMODL / IJN: [id number] /
--- NOTE | 2018-02-02 10:20 | CDI ---
Last Revision, April 2017 Documentation Clarification Form Date: 02/02/2018 9:55:12 AM From: Alicia Orlando RN, CCDS Admit Date: 01/22/2018 6:57:00 PM Patient Name: Nuno Clarke Visit Number: [id number] ATTENTION: The Clinical Documentation Specialists (CDI) and [facility] Coding Staff appreciate your assistance in clarifying documentation. Please respond to the clarification below the line at the bottom and electronically sign. The CDI & [facility] Coding staff will review the response and follow-up if needed. Please note: Queries are made part of the Legal Health Record. If you have any questions, please contact the author of this message via ITS. Irena Webber MD History/Risk Factors: Sepsis w septic shock with acute hypoxic respiratory failure this admission, Infected DM ulcer w MSSA, CKD Clinical Indicators: 02/02 Attending Progress Note: "The patient was also suspected to have an underlying pneumonia and the patient was covered with a combination of vancomycin and Rocephin and Zithromax. The patient does not look clinically to have any significant pneumonia." WBC: 15.8/11.2/10.3 Left shift: 14.5/9.6/8.4/8.5/7.8 CXR: "Diffuse bilateral airspace disease is similar to prior exam. Correlate for congestive heart failure, pneumonia." 02/02 Pulmonary Lung/Breathing assessment: "Improvement in the sound bilaterally with some minimal residual dullness in the left lung base... Crackles, no rhonchi, no wheezes." Treatment: 3L IVF Bolus Antibiotics: Kefzol 2 gm IVP Q 8 hrs, Cipro 500 mg PO BID, Zithromax 250 MG IVPB QD & Vanco 1500 mg IVP Q 24 hrs both D/C 01/23, IVP Rocephin 1 gm Q 24 hrs O2: ra-> 2L NC-> 80% BIPAP and weaning down again Breathing TX: Duoneb QID In order to capture the severity of condition, please clarify if the condition signifies and you are treating for: Aspiration Pneumonia, identify if: Due to solids or liquids Bacterial Pneumonia, specify causal organism (if known) Gram Negative Pneumonia Due to Strep Due to Staph Due to E. coli Other bacteria (please specify) Viral Pneumonia, specify casual organism (if known) Other, please specify Unable to determine Please continue to document in your progress notes and discharge summary in order to capture severity of illness and risk of mortality. Include clinical findings that support your diagnosis. No pneumonia!!!!!!!!!!!!!!!!!! MTDD
--- NOTE | 2018-02-02 10:39 | CDI ---
Last Revision, April 2017 Documentation Clarification Form Date: 02/02/2018 10:21:36 AM From: Alicia Orlando RN, CCDS Admit Date: 01/22/2018 6:57:00 PM Patient Name: Nuno Clarke Visit Number: [id number] ATTENTION: The Clinical Documentation Specialists (CDI) and [facility] Coding Staff appreciate your assistance in clarifying documentation. Please respond to the clarification below the line at the bottom and electronically sign. The CDI & [facility] Coding staff will review the response and follow-up if needed. Please note: Queries are made part of the Legal Health Record. If you have any questions, please contact the author of this message via ITS. Irena Webber MD Cardiomyopathy is documented in your progress notes and requires further specificity. History/Risk Factors: HTN, L BKA, DM w/ complications, JEREMI w/ CKD Clinical indicators: 02/02 Pulmonary Progress Notes: "He is known to have cardiomyopathy with poor ejection fraction of around 20-25%." 01/31 Nephrology: "Severe cardiomyopathy, ejection fraction 20-25 percent, status post dobutamine." Patient C/O: weakness Radiology Reports: 02/02 CXR: Correlate for congestive heart failure, pneumonia 01/31/18 Echocardiogram: EF 25-30%, LVF severely impaired, mild pulmonary HTN Treatment: Consults: Cardiology, Pulmonary, Nephrology, Vascular Dobutamine Gtt Lasix Gtt Levophed Gtt 3L IVF In your professional opinion, can you please clarify the type of cardiomyopathy and underlying cause if known Dilated Hypertrophic Ischemic Secondary, please indicate underlying cause if known Other, please specify Unable to determine Please continue to document in your progress notes and discharge summary in order to capture severity of illness and risk of mortality. Include clinical findings that support your diagnosis. Acute on chronic systolic heart failure, it's better to clarify with cardiology. The patient has an ejection fraction of less than 20%. Please clarify with cardiology whether this is of an ischemic type or not. Possibly ischemic cardiomyopathy The patient has coronary artery disease. MTDD
--- NOTE | 2018-02-02 10:50 | CDI ---
Last Revision, April 2017 Documentation Clarification Form Date: 02/02/2018 10:41:10 AM From: Alicia Orlando RN, CCDS Admit Date: 01/22/2018 6:57:00 PM Patient Name: Nuno Clarke Visit Number: [id number] ATTENTION: The Clinical Documentation Specialists (CDI) and [facility] Coding Staff appreciate your assistance in clarifying documentation. Please respond to the clarification below the line at the bottom and electronically sign. The CDI & [facility] Coding staff will review the response and follow-up if needed. Please note: Queries are made part of the Legal Health Record. If you have any questions, please contact the author of this message via ITS. Arian Baltazar MD An abnormal Hemoglobin and Hematocrit has been persistently noted and lacks specificity to accurately reflect your patients severity of condition and clarification is needed. History/Risk Factors: CKD, Sepsis, DM foot ulcer w MSSA w osteomyelitis, A/C systolic CHF, type 2 CO this admission Clinical indicators: Hemoglobin: 12.5/12.2/11.3/11.8/11.6 Hematocrit: 38.1/37.6/34.7/36.9/35.3 Treatment: Monitoring of labs 3L IVF Bolus Iv Heparin Gtt SQ Lovenox PO ASA In order to capture the severity of condition, please clarify the type of anemia and etiology if known: Acute blood loss anemia Acute on chronic blood loss anemia Chronic blood loss anemia Iron deficiency anemia Drug induced anemia Anemia of chronic disease Anemia of chronic kidney disease Unable to determine Other, please specify Please continue to document in your progress notes and discharge summary in order to capture severity of illness and risk of mortality. Include clinical findings that support your diagnosis. MTDD
[2018-02-02 12:20] LABS: Glucose,Whole Blood 167 mg/dL (75-99)
--- NOTE | 2018-02-02 12:40 | PN ---
PROGRESS NOTE This gentleman has bacteremia and decreased ejection fraction. He is feeling better overall. However, he does have increase in pleural effusion on the right side. He is going for thoracenteses. Vital signs are stable. S1, S2 heard normally. Lungs reveal diminished air entry both bases. Abdomen and lower extremity exam is unchanged. He is going to have a thoracentesis today. MMODL / IJN: [id number] /
[2018-02-02] MEDS: COLLAGENASE 250 UNIT/GM OINTMENT 30 GM TUBE TOPICAL SCH (12:51)
[2018-02-02] MEDS: LACTULOSE 20 GM/30 ML CUP PO SCH (15:59)
[2018-02-02] MEDS: CIPROFLOXACIN HCL 500 MG TAB PO SCH (15:59)
[2018-02-02 17:23] LABS: Glucose,Whole Blood 150 mg/dL (75-99)
--- NOTE | 2018-02-02 17:28 | PN ---
PROGRESS NOTE The patient is seen for followup of acute kidney injury. His Lasix was decreased yesterday. Patient continues to have good urine output. He had about 1.4 L of urine over 24 hours. He denies any significant shortness of breath. He had another thoracentesis today. His creatinine is worse from yesterday at 4.7 from 4.2. We will hold off on the diuretics for now. Overall volume status has improved. EXAMINATION: Blood pressure 104/64, heart rate 79 per minute. He is afebrile. HEART: S1, S2. LUNGS: Bilateral breath sounds are heard. Abdomen is soft, nontender. Lower extremities show 1+ edema, right lower extremity. Right foot is currently wrapped. Patient has left BKA. LABS: Show sodium 138, potassium 4.6, BUN 117, serum creatinine 4.72. Hemoglobin 11.9 g/dL. Magnesium 2.7. ASSESSMENT: 1. Acute kidney injury, initially cardiorenal, currently secondary to recent diuresis. Agree with discontinuation of Lasix. Overall volume status has improved significantly. There are no nephrotoxic agents on board. The patient has adequate urine output. We will repeat labs in a.m. the repeat urine from yesterday did show some WBCs and RBCs. I will send out a urine for eosinophils, as patient is on ciprofloxacin. 2. Congestive heart failure, acute on top of chronic, mainly systolic, currently improved. 3. Escherichia coli urinary tract infection, maintained on Cipro. 4. Right foot wound which grew anaerobic bacteria, Staphylococcus aureus and Stenotrophomonas maltophilia. 5. Cardiomyopathy, ejection fraction 20%-25% with normal left atrium, with borderline concentric left ventricular hypertrophy. PLAN: Hold diuretics. Repeat labs in a.m. Continue to avoid nephrotoxic agents. MMODL / IJN: [id number] /
--- NOTE | 2018-02-02 17:52 | PN ---
PROGRESS NOTE DATE OF SERVICE: 02/02/2018. 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 INTERVAL HISTORY: The patient is afebrile. He is still complaining of difficulty in breathing. Denies significant chest pain. No abdominal pain and no diarrhea. EXAMINATION: Blood pressure 104/54 with a pulse of 79, temperature 96.7. He is 92% on room air. General description is an elderly male up in the chair in no distress. RESPIRATORY SYSTEM: Unlabored breathing. Clear to auscultation anteriorly. HEART: S1, S2. Regular rate and rhythm. ABDOMEN: Soft, no tenderness. Right foot is currently dressed up. No obvious drainage on the dressing. LAB: Hemoglobin 11.2, white count 17.5, BUN of 117, creatinine 4.72. DIAGNOSTIC IMPRESSION AND PLAN: The patient with right diabetic foot wound with secondary acute osteomyelitis. Culture has been positive for MSSA with MSSA bacteremia. The patient also Stenotrophomonas and anaerobic gram-negative from the same cultures. The patient currently covered with Cefazolin. Dose being adjusted for his kidney function. Patient with oral Cipro and Flagyl. Local care to continue with Santyl. Family was present at bedside. Questions were answered. MMODL / IJN: [id number] /
[2018-02-02 20:38] LABS: Glucose,Whole Blood 150 mg/dL (75-99)
[2018-02-02] MEDS: LATANOPROST 0.005% OPHTH DROPS 2.5 ML BTL BOTH EYES SCH (20:38)
[2018-02-02] MEDS: ceFAZolin 1,000 MG in DEXTROSE/WATER 1 50ML.BAG IVPB SCH (20:40)
[2018-02-02 20:55] LABS: Calcium 8.4 mg/dL (8.4-10.2); Magnesium 2.6 mg/dL (1.6-2.3); Potassium 4.2 mmol/L (3.5-5.1)
[2018-02-02] MEDS ORDERED: DILTIAZEM DRIP BOLUS FROM BAG 1 MG SOLN IV ONE (20:56)
[2018-02-02] MEDS ORDERED: ceFAZolin IN SWFI 2 GM/20 ML SYRINGE IVP SCH (21:00)
[2018-02-02] MEDS: HEPARIN SOD,PORK IN 0.45% NACL 25,000 UNIT in 0.45% NACL 1 500ML.BAG IV SCH (21:24)
[2018-02-02] MEDS: DILTIAZEM 50 MG in SODIUM CHLORIDE 0.9% 40 ML IV SCH (21:24)
[2018-02-02] MEDS: INSULIN DETEMIR 100 UNIT/ML 10 ML VIAL SQ SCH (21:24)
--- NOTE | 2018-02-02 23:10 | PN ---
PROGRESS NOTE DATE OF SERVICE: February 02, 2018. PRESENTING COMPLAINT: Tired. INTERVAL HISTORY: This patient in the ICU admitted with sepsis, septic shock, pneumonia, right big toe, possible osteomyelitis, UTI and acute RI. Patient is status post debridement of the right big toe. The patient is also status post bilateral thoracentesis. Also renal function has been gradually worsening earlier today 1.3 L was removed. Thoracentesis was done from the right chest. Breathing is better. Edema started to go down. Patient did tolerate some diet. REVIEW OF SYSTEMS: Done for constitutional, cardiovascular, GI, pulmonary; relevant findings as above. CURRENT MEDICATIONS: Reviewed that include DuoNeb, PhosLo, IV Ancef, p.o. Cipro, Flagyl, Levemir, Lopressor, sodium bicarb. PHYSICAL EXAMINATION: VITAL SIGNS: Temperature 96.8, pulse 72, respirations 17, blood pressure 114/66, pulse ox 94 percent on room air. GENERAL APPEARANCE: Sitting up, awake, a bit tired. EYES: Pupils equal, conjunctivae normal. HEENT external apperance of nose and ears normal. Oral cavity normal. NECK JVD unable to assess. Mass not palpable. RESPIRATORY: Effort increased. LUNGS decreased breath sounds. CARDIOVASCULAR: 1st and 2nd sounds normal. Decreased edema in the right leg. Right big toe wound. ABDOMEN: Soft, nontender. Liver and spleen not palpable. PSYCHIATRY: Alert and oriented x3. Mood and affect normal. EXTREMITIES: Left below- knee amputation. INVESTIGATIONS: Potassium 4.2, BUN 109, creatinine 4.80. ASSESSMENT: 1. Severe sepsis, septic shock on presentation, probably from osteomyelitis of the right big toe. Cultures growing MSSA and Stenotrophomonas maltophilia. Also patient was positive for pneumonia. 2. Sepsis with positive blood cultures with MSSA. 3. Acute urinary tract infection with cultures positive for E coli. 4. Acute non-ST elevation myocardial infarction, present on admission. 5. Chronic left below-knee amputation with prosthesis. 6. Diabetes mellitus type 2, chronically on insulin uncontrolled with hyper- and hypoglycemia. 7. Hyperlipidemia. 8. Acute kidney injury, probably acute tubular necrosis and pre renal component continues to worsen both from hypotension and sepsis. 9. Acute lactic acidosis from sepsis. 10.Acute hypoxic respiratory failure from chronic obstructive pulmonary disease, congestive heart failure, pneumonia and currently on nasal cannula. 11.Status post debridement of the right big toe by Dr. White. 12.Status post bilateral thoracentesis. 13.Another repeat thoracentesis today was done on the right side, 1.3 L were removed. PLAN: Continue current medication and treatment plan. Also discussed with Dr. Otoole. The patient has come off the oxygen and thoracentesis definitely has helped the patient. The patient's diuretics have been discontinued. Given age and multiple comorbidities, prognosis still remains guarded. We will see how the renal function pans out. Also being followed by Nephrology. Care was discussed with the and daughter at the bedside. Questions were answered. MMODL / IJN: [id number] /
[2018-02-03 04:50] LABS: Basophils # (A) 0.1 k/uL (0-0.2); Basophils % (A) 0 %; Eosinophils # (A) 0.1 k/uL (0-0.7); Eosinophils % (A) 1 %; HGB 11.2 gm/dL (13.0-17.5); Lymphocytes % (A) 6 %; MCH 31.4 pg (25.0-35.0); MCHC 31.9 g/dL (31.0-37.0); MCV 98.6 fL (80.0-100.0); Mean Platelet Volume 8.2; Monocytes % (A) 5 %; Neutrophils % (A) 86 %; Platelet Count 264 k/uL (150-450); RBC 3.56 m/uL (4.30-5.90); RDW 13.5 % (11.5-15.5); WBC 17.4 k/uL (3.8-10.6)
[2018-02-03 05:18] LABS: Calcium 8.7 mg/dL (8.4-10.2); Magnesium 2.7 mg/dL (1.6-2.3); Phosphorus 7.2 mg/dL (2.5-4.5); Potassium 4.2 mmol/L (3.5-5.1)
[2018-02-03] MEDS ORDERED: DEXTROSE 5% IN WATER 250 ML BAG IV ONE (06:06)
[2018-02-03] MEDS ORDERED: EPINEPHrine 10 ML SYRINGE (0.1 MG/ML) ONE (06:06)
[2018-02-03] MEDS ORDERED: AMIODARONE 50 MG/ML 3 ML VIAL IV ONE (06:06)
[2018-02-03] MEDS ORDERED: LORazepam 2 MG/ML INJ ONE (06:22)
[2018-02-03 07:15] LABS: ABG Base Excess -6.3 mmol/L; ABG HCO3 19 mmol/L (21-25); ABG Oxygen Saturation 99.2 % (94-97); ABG PCO2 34 mmHg (35-45); ABG PH 7.36 (7.35-7.45); ABG PO2 168 mmHg (83-108); ABG TCO2 20 mmol/L (19-24)
[2018-02-03] MEDS: IPRATROPIUM-ALBUTEROL 3 ML NEB INHALATION SCH ×2 (07:53→11:53)
[2018-02-03] MEDS ORDERED: NOREPINEPHRINE 4 MG in SODIUM CHLORIDE 0.9% 250 ML IV SCH (08:00)
[2018-02-03] MEDS ORDERED: AMIODARONE 450 MG in DEXTROSE 5% IN WATER 250 ML IV SCH ×2 (08:00)
[2018-02-03] MEDS: PROPOFOL 1,000 MG in EMPTY BAG 1 BAG IV SCH ×2 (08:00→11:14)
[2018-02-03] MEDS: DILTIAZEM 50 MG in SODIUM CHLORIDE 0.9% 40 ML IV SCH (08:05)
--- NOTE | 2018-02-03 08:44 | XR ---
EXAMINATION TYPE: XR chest 1V DATE OF EXAM: 02/03/2018 COMPARISON: Prior chest x-ray 02/02/2018 HISTORY: Intubated TECHNIQUE: Single frontal view of the chest is obtained. FINDINGS: There is been interval placement of an endotracheal tube which is overlying the tracheal a ir column, NG tube is in place, distal tip is in the left upper quadrant, there is elevated left albert diaphragm as the tube tip is superimposed over the left heart. Bilateral airspace disease persists. N o evident pneumothorax. There are overlying cardiac leads. IMPRESSION: Correlate for pneumonia or edema, there may be associated effusion
[2018-02-03] MEDS ORDERED: CHLORHEXIDINE GLUCONATE 15 ML CUP MUCOUS MEM SCH (09:00)
--- NOTE | 2018-02-03 09:04 | P.PN ---
Subjective Progress Note Date: 02/03/18 87-year-old male patient, known history of congestion heart failure with an ejection fraction of 20-25%, on addition to history of diabetes, hypertension and hyperlipidemia and peripheral vascular disease with below-knee amputation on the left. The patient presented to the hospital because of generalized weakness and some shortness of breath. In the emergency department the cardiac panel was positive and the patient ruled in for an acute non-ST segment elevation myocardial infarction. He had a EKG that showed a left bundle branch block pattern that was of a new onset. The patient was placed on IV heparin. The patient was placed on a Lasix drip however the patient gradually went into acute kidney injury and this was attributed to cardiorenal factors. Serum creatinine gradually came up and there was marked improvement in the urine output. The patient continued to show signs of volume overload. Subsequent chest x-ray showed large bilateral pleural effusion right more than left. At the same time that, the patient was getting short of breath and on and off he was requiring BiPAP for respiratory support. This morning he is on 15 L of oxygen by nasal cannula. The patient was also suspected to have an underlying pneumonia and the patient was covered with a combination of vancomycin and Rocephin and Zithromax. Subsequent septic workup showed a E. coli urinary tract infection and the patient was also found to have MSSA in the blood and MSSA in the left foot wound in addition to stenotrophomonas. The right foot has already been debrided by vascular surgery. Based on this, antibiotic just was were done and the patient was placed on a combination of Salt 2 g every 8 hours and ciprofloxacin 500 breath mg every 18 hours. Earlier this morning, the patient was taken off the Lasix drip and the patient was placed on Lasix 40 g every 12 hours. The patient was also started on dobutamine 2.5 g per KG per minute. 01/28/2018 the patient is feeling better. Oxidation is improved and the patient is being weaned off the FiO2 and this morning he is down to 6 L and his pulse ox is around 100%. The patient had a large volume thoracentesis yesterday and the fluid is most likely a chain state with a total protein of 2 g and an LDH of 128. This is consistent with CHF. Today's chest x-ray still showing some congestion and some residual pleural effusion on the left. The patient is currently on a combination of dobutamine drip and Lasix. Lasix and a dose of 43 g IV push every 12 hours. He is producing good amount of urine output. His net fluid balance over the past 24 hours is in the order of 1.1 L and another 2.3 L since this morning. As such is improving his urine output and the patient's is doing well. The creatinine today's at 3.5 and a Lasix dose was dropped down to 40 g every 12 hours. No chest pain. Still on same antibiotic coverage regarding his septic event as the patient had a MSSA bacteremia from a diabetic wound infection. He has undergone the appropriate debridement. He remains on a combination of ciprofloxacin and Kefzol as an antibiotic coverage. No altered mentation. No chest pain. Tolerating diet. No nausea or vomiting. No other complaints otherwise. He has a component of anion gap metabolic acidosis of bicarb level of 19. On 01/29/2018, the patient is not having any active complaints. He is less short of breath especially when he lays down. His chest x-ray showing left- sided pleural effusion and pulmonary edema. The patient is an acute CHF and the patient is on dobutamine at 5 mics per KG per minute and he is also on Lasix 40 g IV push every 12 hours. Urine output is adequate and the patient is in a negative fluid balance. The net fluid balance for yesterday was 9 80 mL negative and the day prior to that was -2.3 L. The patient is producing adequate amount of urine output. Renal function is still in. In the creatinine is on the rise. The patient suffered an ATN probably related to his underlying sepsis. As mentioned the patient had a diabetic foot ulcers and osteomyelitis with secondary septicemia with MSSA. There is also stenotrophomonas in the leg wound. No encephalopathy. Awake and alert. Following commands and answering questions. Oxidation is improved and the patient has been weaned down to 4 L. I performed a second thoracentesis on the left lung and drained approximately 800 mL of pleural fluid from the pleural space without any complications. Chest x-ray is to follow. He is afebrile. Tolerating diet. No nausea or vomiting. On 01/30/2018, I'm seeing this patient for a follow-up in the intensive care unit. The patient was in acute hypoxic respiratory failure. His CHF was managed. Initially had a right-sided thoracentesis. Subsequently I performed a left-sided thoracentesis. His own 40s about 2 by nasal cannula. On today's chest x-ray there is worsening consolidation of the right lung. Left lung is clear and there is no excessive pleural fluid within the thorax. As such, I think is reasonable to do a CAT scan tomorrow assess the right lung findings special that there is interval worsening in the right lung consolidation. The patient is feeling the same. In fact is feeling slightly better with the bilateral thoracenteses that was done. He remains on a combination of ciprofloxacin and IV Kefzol regarding the MSSA septicemia and the stenotrophomonas wound infection. The patient is osteomyelitis and diabetic foot ulcer on the right foot. The patient is hemodynamically stable. Renal function continues to be impaired. Creatinine today's at 3.95 with a BUN of 101. The values are slightly worse compared to yesterday. The patient on IV Lasix 40 mg IV push every 8 hours. The patient was also given dobutamine for the past 3 days and dobutamine drip was discontinued today by cardiology. He still has some edema lower extremities however his overall fluid balance is improved significantly. The patient is in a negative fluid balance of 2.1 L over the past 24 hours 1 L for the day prior to that and 2.3 L on 2017. As such she's been negative for the past 3-4 days at least. The creatinine is up to 3.9. I think is reasonable to His Diuretics for Now. We'll Discuss This Also with Nephrology. No Nausea. No Vomiting. No Abdominal Pain. No Chest Pain. Wound Care Is Being Done to His Right Foot. On , the patient is doing well. The patient is on oxygen at 2 L per minute nasal cannula. A CAT scan of the chest was done yesterday and showed some residual right-sided pleural effusion and there is a consolidation within the right upper lung area which I think is most likely an atypical presentation of an acute pulmonary edema. The patient does not look clinically to have any significant pneumonia. No significant cough or sputum production. No hemoptysis or pleurisy. He has responded nicely to diuretics. He has responded also earlier today combination of dobutamine and Lasix. I drained his lungs bilaterally and the drainage fluid from the right was a transudate. As such, we'll going to continue the Lasix milligrams IV push every 24 hours and the patient is producing adequate amount of urine output. Antibiotic coverage will be kept the same and the patient is on a combination of IV Kefzol and ciprofloxacin regarding the osteomyelitis/diabetic foot ulcer. He had MSSA septicemia. Septic emboli to his right lung is felt to be less likely. Nephrology is on the case. Renal function is stable with a creatinine of 3.9 on today's evaluation. Hemoglobin is stable at 11.9. No syncopal leukocytosis. No altered mentation. He is known to have cardiomyopathy with poor ejection fraction of around 20-25%. 02/01/2018, patient is being seen in the follow-up. No respiratory distress. Repeat chest x-ray was done today and the patient is showing CHF with some probable improvement compared to yesterday chest x-ray findings. As mentioned earlier the patient also has still some residual [place] pleural effusions. The patient on Lasix 40 mg IV push every 24 hours. Renal function is slightly impaired compared to yesterday and the creatinine is up to 4.2. Despite all this, the patient continues to make excellent urine output and she has produced approximately 2.5 L of urine output yesterday and the net fluid balance is -1.5 L. He is not having any respiratory distress. The wound cultures will be obtained and the patient is still on a combination of IV Kefzol and ciprofloxacin. ID is on the case. Local wound care is being done. White cell count is at 15.4. No fever. No chills. No altered mentation. A repeat echocardiogram was done and there is no significant change in the LV function as the patient has systolic failure with an ejection fraction of 20-25%. 02/02/2018, I'm seeing this patient for a follow-up. No new complaints. Currently is on room air. Chest x-ray still showing pulmonary edema and bilateral pleural effusion. I performed a bedside thoracentesis on the right a total of 1.35 L of pleural fluid was aspirated from the right lung. Chest x- rays to follow. I realized the patient's renal functions progressive getting worse. Creatinine is up to 4.6. I'm going to stop the IV Lasix for now. The patient is a negative fluid balance. He still producing adequate amount of urine output. No fever. No chills. White cell count is slightly elevated at 17 and the patient's antibiotics have been adjusted and Flagyl was also added for anaerobic coverage regarding his diabetic foot infection. ID is on the case. He is awake. He is alert. He is no specific complaints for now. He is not having any labored breathing at this point in time. 02/04/2008 and I'm seeing this patient for a follow-up. Events that occurred last night and earlier this morning was also noted. I also had a lengthy discussion with the family and the nursing staff. The patient around 2100, started having atrial fibrillation with rapid ventricular response. He was also having short runs of atrial fibrillation approximately 10 minutes. Cardizem was given after the bolus and he was maintained on 5 mg an hour of a drip. He was also started on IV heparin. His age fibrillation rate and controlled. At around 5:40 AM this morning the patient went into sudden ventricular fibrillation then sinus rhythm and he continued to have short runs of V. fib without any complaints. At around 6:06 AM he had a cardiac arrest and he was resuscitated according to the ACLS protocol. He was given 2 shocks, 2 epinephrines and amiodarone bolus 150 mg. After being down for probably 8-10 minutes the patient had spontaneous rhythm and blood pressure. Currently is intubated on a mechanical ventilator. Assist-control mode of ventilator at the rate of 16 with a tidal volume of 450 and FiO2 of 100% and a PEEP of 5. The blood gases from us morning show a pH of 7.36 with a pCO2 of 34 and pO2 of 168. The patient is currently on 10 mics of norepinephrine infusion for blood pressure control. The patient is also sedated with Diprivan at a dose of 30 g per KG per minute. No urine output. Segura catheter was inserted. Chest x- rays consistent with acute pulmonary edema. There is diffuse but the pulmonary infiltrates. ET tube is in a good location. The creatinine is up to 5.2. Serum bicarbonate 23. White cell count is at 17.4. Troponins were not done. His cardiac rhythm currently is sinus with PVCs and PACs and occasional pauses. Amiodarone drip is still running at 1 mg an hour. Family is at the bedside. Had a lengthy discussion with the family and explained to them the situation. Objective - Vital Signs Vital signs: Vital Signs Temp 98.0 F 02/03/18 04:00 Pulse 76 02/03/18 08:09 Resp 16 02/03/18 08:31 BP 104/66 02/03/18 04:00 Pulse Ox 96 02/03/18 04:00 Intake & Output 02/02/18 02/03/18 02/03/18 18:59 06:59 18:59 Intake Total 375.253 Output Total 1550 350 Balance -1550 25.253 Intake: IV 15 Diltiazem 50 mg In Sodium 5 Chloride 0.9% 40 ml @ 5 MG/HR 5 mls/hr IV .Q10H [facility] Rx#:[id number] Sodium Chloride 0.9% 1, 10 000 ml @ 10 mls/hr IV . Q24H [facility] Rx#:[id number] Intake, IV Titration 160.253 Amount Heparin Sod,Pork in 0.45% 160.253 NaCl 25,000 unit In 0.45 % NaCl 1 500ml.bag @ 10.1 UNITS/KG/HR 19.99 mls/hr IV .Q24H [facility] Rx#: [id number] Oral 200 Output: Urine 200 350 Other 1350 Other: Voiding Method Urinal Urinal Urinal # Bowel Movements 1 - Exam Patient is intubated on a mechanical ventilator. Assist control mode of ventilator. He is sedated with Diprivan is calm and comfortable. He is anxious with the mechanical ventilator. Head exam was generally normal. There was no scleral icterus or corneal arcus. Mucous membranes were moist. Neck is positive for JVDs and there is no goiter or neck masses this point in time. Neck is supple. He has an orogastric and orotracheal tube are both of them are in place. Lungs reveal crackles in the mid and lower lung wong along with diminished breath sound lung bases. Heart sounds are on and off irregular with PACs and PVCs and occasional causes. These are less than 5 seconds positives. Positive S1-S2. No cervical murmurs appreciated. Abdominal exam revealed normal bowel sounds. The abdomen was soft, non-tender, and without masses, organomegaly, or appreciable enlargement of the abdominal aorta. Extremities revealed diminished pulses and there is no sinus or clubbing. The feet are cold. No wounds or ulceration. The patient has a below-knee amputation on the left. As for the right foot diabetic ulcer, this was debrided and appropriate dressing has been applied. No active drainage at this point in time. Neurologically, the patient is sedated. He may be given a sedation holiday at a later stage today. Tubes are equal and reactive to light. No nystagmus. No clonus. No withdrawal to painful stimulation. He has occasional random spontaneous movement in all 4 extremities. - Labs CBC & Chem 7: 02/03/18 04:33 02/03/18 04:33 Labs: Abnormal Lab Results - Last 24 Hours (Table) 02/02/18 02/02/18 02/02/18 Range/Units 12:18 17:21 20:17 WBC (3.8-10.6) k/uL RBC (4.30-5.90) m/uL Hgb (13.0-17.5) gm/dL Hct (39.0-53.0) % Neutrophils # (1.3-7.7) k/uL APTT (22.0-30.0) sec ABG pCO2 (35-45) mmHg ABG pO2 (83-108) mmHg ABG HCO3 (21-25) mmol/L ABG O2 Saturation (94-97) % Sodium 134 L (137-145) mmol/L Chloride 97 L (98-107) mmol/L BUN 119 H* (9-20) mg/dL Creatinine 4.80 H (0.66-1.25) mg/dL Glucose 151 H (74-99) mg/dL POC Glucose (mg/dL) 167 H 150 H (75-99) mg/dL Phosphorus (2.5-4.5) mg/dL Magnesium 2.6 H (1.6-2.3) mg/dL 02/02/18 02/02/18 02/03/18 Range/Units 20:36 21:20 04:33 WBC 17.4 H (3.8-10.6) k/uL RBC 3.56 L (4.30-5.90) m/uL Hgb 11.2 L (13.0-17.5) gm/dL Hct 35.0 L (39.0-53.0) % Neutrophils # 15.0 H (1.3-7.7) k/uL APTT 31.4 H (22.0-30.0) sec ABG pCO2 (35-45) mmHg ABG pO2 (83-108) mmHg ABG HCO3 (21-25) mmol/L ABG O2 Saturation (94-97) % Sodium (137-145) mmol/L Chloride (98-107) mmol/L BUN (9-20) mg/dL Creatinine (0.66-1.25) mg/dL Glucose (74-99) mg/dL POC Glucose (mg/dL) 150 H (75-99) mg/dL Phosphorus (2.5-4.5) mg/dL Magnesium (1.6-2.3) mg/dL 02/03/18 02/03/18 02/03/18 Range/Units 04:33 04:33 07:13 WBC (3.8-10.6) k/uL RBC (4.30-5.90) m/uL Hgb (13.0-17.5) gm/dL Hct (39.0-53.0) % Neutrophils # (1.3-7.7) k/uL APTT >200.0 H* (22.0-30.0) sec ABG pCO2 34 L (35-45) mmHg ABG pO2 168 H (83-108) mmHg ABG HCO3 19 L (21-25) mmol/L ABG O2 Saturation 99.2 H (94-97) % Sodium 134 L (137-145) mmol/L Chloride 96 L (98-107) mmol/L BUN 125 H* (9-20) mg/dL Creatinine 5.26 H (0.66-1.25) mg/dL Glucose 126 H (74-99) mg/dL POC Glucose (mg/dL) (75-99) mg/dL Phosphorus 7.2 H (2.5-4.5) mg/dL Magnesium 2.7 H (1.6-2.3) mg/dL Assessment and Plan Plan: Assessment 1 acute cardiac arrest. The patient had V. fib, resuscitated with epinephrine, fibrillation and CPR. Exact downtime is probably 8-10 minutes. Currently intubated on a mechanical ventilator on amiodarone drip. Cardiac rhythm is sinus with frequent PACs and PVCs and wide complex rhythms and causes. 2 acute hypoxic respiratory failure secondary to above. The patient is currently intubated on a mechanical ventilator. Chest x-ray showing acute pulmonary edema. 3 acute systolic heart failure with ejection fraction of 20-25%, 4 acute kidney injury, the patient oliguric this morning. After making good amount of urine output, the urine output dropped significantly following his cardiac arrest.. Segura catheter was inserted 5 staphylococcal septicemia/MSSA likely secondary right foot infection, post debridement and the patient is currently on IV Kefzol and the patient is also on ciprofloxacin for the stenotrophomonas and there wounds. Repeat cultures of been sent and antibiotic adjustment to be done accordingly. E. coli urine tract infection 6 coronary artery disease with an acute non-ST segment elevation myocardial infarction 7 left bundle branch block pattern 8 diabetic foot ulcer involving the right foot post debridement with cultures indicating stenotrophomonas and MSSA. 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 There is concern for a anaerobic infection addition of Flagyl was also added by infectious disease. 9 peripheral vascular disease with left below-knee amputation 10 diabetes mellitus 11 hypertension 12 hyperlipidemia 13 osteoarthritis Plan Unfortunately this is a huge setback. The patient a cardiac arrest in the setting of advanced cardiomyopathy, sepsis, and renal failure. Based on his age and comorbidities, his chances of recovery is extremely low. This is an extended to the patient. For now we'll continue the supportive care. As changes CODE STATUS is DO NOT RESUSCITATE based on my conversation to the . The patient will have the FiO2 titrated to maintain a saturation above 90%. Continue assist-control mode of ventilation. Keep the tidal volume of 450. Check the underlying mental status by giving the patient is sedation holiday. Continue amiodarone drip. Check cardiac enzymes including troponins. Continue with pressors and avoids excessive fluid resuscitation. The patient is currently on norepinephrine infusion running at 10 mics. Discussed the possibility of renal replacement therapy with the family. Obviously there are not in favor of that. I think it's very reasonable. He is very much like that we are heading towards comfort care measures once the rest of the family arrives and further prognosis been explained to the patient's family. The and the daughter are very much open to this notion of comfort care measures within next 24-48 hours. We'll continue to follow. Critical care evaluation more than 40 minutes. Time with Patient: Greater than 30
[2018-02-03] MEDS: CALCIUM ACETATE 667 MG CAP PO SCH ×2 (09:08→14:54)
--- NOTE | 2018-02-03 09:59 | PN ---
PROGRESS NOTE This is an 87-year-old gentleman with bacteremia and poor LV function. Yesterday, he had another thoracentesis performed with nearly 1300 mL. He was in sinus rhythm with PACs, but towards the night he went into atrial fib and Cardizem drip was started. This morning he went into ventricular fibrillation, required to be shocked and had a brief CPR, intubated. He is now in sinus rhythm. His poor LV function could have been the precipitating factor for his arrhythmia. I am recommending that we give him an amiodarone drip as per protocol, discontinue the Cardizem drip and see how he does. His electrolytes also are being monitored closely. I spoke to the patient's and daughter. I explained to them that poor LV function is probably the underlying substrate for him to have ventricular arrhythmias. Prognosis is generally poor for somebody at his age with his LV function, but we will do the best we can at this time. He is not on any pressors. His diltiazem drip is being discontinued. He will be on amiodarone drip. I am also suggesting that we perform additional troponins. His renal function is an issue. BUN and creatinine are significantly elevated. Prognosis remains quite poor. Physical exam revealed a blood pressure of about 108 systolic. Pulse rate is about 80, sinus. There is JVD of 1 cm. No carotid bruit. S1, S2 heard normally, short systolic murmur noted. Lungs reveal diminished air entry. The patient is intubated. Rest of physical exam unchanged. IMPRESSION: 1. Status post ventricular fibrillation, CPR and resuscitation, now on a ventilator. 2. Paroxysmal symptomatic atrial fibrillation. 3. History of ventricular fibrillation. 4. Cardiomyopathy with ejection fraction of less than 25%. 5. Acute on chronic renal failure. 6. Bacteremia. RECOMMENDATIONS: Prognosis remains poor. I am recommending amiodarone, electrolyte homeostasis and repeat troponins. Based on clinical course and progress, we will make further recommendations. MMODL / IJN: [id number] /
[2018-02-03] MEDS ORDERED: INSULIN ASPART 100 UNIT/ML 1 ML 10 ML VIAL SQ SCH (12:00)
[2018-02-03] MEDS: HEPARIN SOD,PORK IN 0.45% NACL 25,000 UNIT in 0.45% NACL 1 500ML.BAG IV SCH (12:31)
[2018-02-03 13:10] VITALS: TEMP 97.8
[2018-02-03] MEDS: ceFAZolin 1,000 MG in DEXTROSE/WATER 1 50ML.BAG IVPB SCH (14:52)
[2018-02-03] MEDS: ASPIRIN 81 MG PO SCH (14:52)
[2018-02-03] MEDS: ATORVASTATIN 40 MG TAB PO SCH (14:52)
[2018-02-03] MEDS: METOPROLOL TARTRATE 12.5 MG TAB PO SCH (14:53)
[2018-02-03] MEDS: LACTULOSE 20 GM/30 ML CUP PO SCH (14:53)
[2018-02-03] MEDS: COLLAGENASE 250 UNIT/GM OINTMENT 30 GM TUBE TOPICAL SCH (14:53)
[2018-02-03] MEDS: metroNIDAZOLE 500 MG TAB PO SCH (14:53)
[2018-02-03] MEDS: CIPROFLOXACIN HCL 500 MG TAB PO SCH (14:53)
[2018-02-03] MEDS: NYSTATIN 100,000 UNIT/ML SUSP 500,000 UNIT/5 ML CUP PO SCH (14:53)
[2018-02-03] MEDS: SODIUM BICARBONATE TAB 650 MG TAB PO SCH (14:54)
[2018-02-03] MEDS: PSYLLIUM HUSK 100% 6 GM PACKET PO SCH (14:54)
[2018-02-03 15:05] VITALS: BP 105/59; PULSE 67; RESP 29
[2018-02-03] MEDS ORDERED: MORPHINE SULFATE 4 MG/ML SYRINGE IV PRN (15:08)
[2018-02-03] MEDS ORDERED: LORazepam 2 MG/ML INJ IV PRN (15:08)
[2018-02-03] MEDS ORDERED: ONDANSETRON 4 MG/2 ML VIAL IVP PRN (15:08)
[2018-02-03] MEDS ORDERED: ARTIFICIAL TEARS-HYPROMELLOSE DROPS 15 ML BTL BOTH EYES PRN (15:08)
[2018-02-03] MEDS ORDERED: DRY MOUTH SPRAY 44.3 SPRAY/44.3 ML SPRAY MUCOUS MEM PRN (15:08)
[2018-02-03] MEDS ORDERED: ATROPINE OPHTH SOLN 1% 5ML BTL SUBLINGUAL PRN (15:08)
[2018-02-03] MEDS ORDERED: MORPHINE SULFATE (100 MG/2 ML) 100 MG in SODIUM CHLORIDE 0.9% 100 ML IV SCH (15:15)
[2018-02-03] MEDS ORDERED: SCOPOLAMINE 1.5MG/72HR PATCH TRANSDERM SCH (15:30)
--- NOTE | 2018-02-03 16:26 | PN ---
PROGRESS NOTE The patient is seen for followup for acute kidney injury. This morning patient had a cardiac arrest. He went into VFib. He is currently on vent, is present at bedside. Urine output has dropped after the code. The currently patient is on Levophed at 10 mcg. PHYSICAL EXAMINATION: On examination, patient is sedated, is on the vent. Blood pressure 108/60, heart rate of 63 per minute. He is afebrile. Examination shows the patient is sedated. Bilateral breath sounds are heard. Abdomen is soft, nontender. Heart sounds are heard. Examination lower extremities shows edema 1+ right lower extremity. Right foot is wrapped. The patient has left BKA. LABS: Show sodium 134, potassium 4.2, BUN 125, serum creatinine 5.26, hemoglobin 11.2 g/dL. ASSESSMENT: 1. Acute kidney injury, cardiorenal with recent worsening of renal function again since yesterday secondary to hypotension and cardiac arrest. I have discussed renal replacement therapy with the family. At this time and not too keen and they may be considering comfort care measures by tomorrow. 2. Status post cardiac arrest. 3. Severe cardiomyopathy, EF 20-25 percent. 4. Congestive heart failure, volume overload, status post diuresis with improvement in volume status. 5. Pleural effusions, status post multiple thoracenteses. Last thoracentesis was done yesterday with improvement in respiratory status. PLAN: Continue pressor support, hemodialysis if family does not proceed with comfort care measures. MMODL / IJN: [id number] /
[2018-02-04] MEDS ORDERED: FAMOTIDINE 20 MG/2 ML VIAL IV SCH (09:00)
--- NOTE | 2018-02-04 17:36 | PN ---
PROGRESS NOTE DATE OF SERVICE: 02/03/18. PRESENTING COMPLAINT: Intubated. INTERVAL HISTORY: This patient was seen by me yesterday in the ICU. Initially admitted with sepsis, septic shock, pneumonia, right big toe infection, possibly osteomyelitis, UTI and acute MT. The patient is status post debridement of the right big toe. Also patient is status post bilateral thoracenteses. Also renal function has been worsening. Overnight the patient started went into atrial fibrillation, was put on amiodarone and then started having what appeared to be maybe ventricular tachycardia and patient went into distress and had to be intubated. This morning patient has been on Diprivan 30 mcg, Levophed 10 mcg, amiodarone 1 mg and IV heparin. The patient is on the ventilator. Family has been present. REVIEW OF SYSTEMS: Could not be done as patient is intubated. CURRENT MEDICATIONS: Reviewed include IV Diprivan, IV Levophed, IV amiodarone, IV heparin. PHYSICAL EXAMINATION: Temperature 97.8, pulse 93, respiration 21, blood pressure 103/56, pulse ox 97 percent on ventilator. EYES: Pupils equal. Conjunctiva normal. HEENT: External appearance of nose and ears normal. Oral cavity intubated. NECK: JVD unable to assess. Mass not palpable. RESPIRATORY: Effort increased. Lungs, decreased breath sounds. CARDIOVASCULAR: 1st and 2nd sounds normal, decreased. ABDOMEN: Soft, nontender. Liver and spleen not palpable. PSYCHIATRY: Unable to assess, patient intubated. EXTREMITIES: Left below-knee amputation. INVESTIGATIONS: White count 17.4, hemoglobin 11.2, potassium 4.2, BUN 125, creatinine 5.26. Chest x- ray, possible infiltrates. ASSESSMENT: 1. Severe sepsis with septic shock on presentation, probably from osteomyelitis of the right big toe. Cultures growing MSSA and Stenotrophomonas maltophilia. Also patient positive for pneumoniae. 2. Sepsis with positive blood cultures with MSSA. 3. Acute urinary tract infection with cultures positive for E coli. 4. Acute non-ST elevation myocardial infarction, present on admission. 5. Chronic left below-knee amputation with prosthesis. 6. Diabetes mellitus type 2, chronically on insulin uncontrolled with hyper- and hypoglycemia. 7. Hyperlipidemia. 8. Acute kidney injury, probably acute tubular necrosis and prerenal component worsening with contribution from hypertension and sepsis. 9. Acute lactic acidosis from sepsis. 10.Acute hypoxic respiratory failure from multiple causes. The patient is now on ventilator support. 11.Status post debridement of right big toe by Dr. White. 12.Status post bilateral thoracentesis. 13.Paroxysmal atrial fibrillation. PLAN: Patient is doing poorly on supportive care. Prognosis is not good. Family is considering making the patient terminal. Continue supportive care at the present time including IV Diprivan, IV Levophed, IV amiodarone, IV heparin. ADVANCE CARE PLANNING: Dr. Otoole had spoken to family and did speak to the patient's , daughter and the children. The decision was made to extubate the patient. The patient had did discuss that from here on it is difficult to say how the patient may be around. They understand the patient's poor prognosis, how he may be doing. No artificial feeding is to be given. Earlier I spoke with the nurse and also with Dr. Otoole. More than 30 minutes was spent on this aspect of the case. MMREYNALDOL / CHUCKN: [id number] /
--- NOTE | 2018-02-04 21:54 | DS ---
DISCHARGE SUMMARY DATE OF ADMISSION: 02/01/2018 DATE PATIENT : 02/03/2018. CAUSE OF : Acute myocardial infarction. HOSPITAL COURSE: This patient with multiple medical problems including sepsis, pneumonia, UTI, possible osteomyelitis right big toe, and acute myocardial infarction. The patient was in the ICU, treated with multiple consultants. The patient continued to deteriorate. The patient had bilateral thoracentesis and then went into what appeared to be ventricular tachycardia, atrial fibrillation, had to be intubated again. Family decided to terminally extubate the patient. For more details, please refer to the chart. CONSULTATIONS: Dr. Beaulieu from Nephrology, Dr. Angelita Juarez from Cardiology, Dr. Otoole from Critical Care, Dr. Fernandez from Infectious Disease, Dr. White from vascular surgery. Copy to Dr. Collins. CHRISTIN / IJN: [id number] /
--- NOTE | 2018-02-06 14:23 | DS ---
DISCHARGE SUMMARY DATE OF ADMISSION: 01/22/2018. DATE PATIENT : 02/03/2018. CAUSE OF : Acute myocardial infarction. HOSPITAL COURSE: This patient presented with multiple medical problems including sepsis, pneumonia, UTI, possible osteomyelitis right big toe and acute myocardial infection. The patient was in the ICU, treated with multiple consultants. The patient continued to deteriorate. The patient had bilateral thoracentesis, went into what appeared to be ventricular tachycardia, atrial fibrillation, had to be intubated again. Family decided to terminally extubate the patient. More details, refer to the chart. CONSULTATION: 1. Dr. Beaulieu from Nephrology. 2. Dr. Angelita Juarez from Cardiology. 3. Dr. Otoole from Critical Care. 4. Dr. Fernandez from Infectious Disease. 5. Dr. White from vascular surgery. Other medical conditions treated during hospitalization: 1. Severe sepsis with septic shock on presentation, probably from osteomyelitis of the right big toe. Cultures growing MSSA and Stenotrophomonas maltophilia. Also patient was positive for pneumonia. 2. Sepsis with positive blood cultures with MSSA. 3. Acute urinary tract infection with cultures positive for E coli. 4. Acute non-ST elevation myocardial infarction, present on admission. 5. Chronic left below-knee amputation from prosthesis. 6. Diabetes mellitus type 2, chronically on insulin uncontrolled with hyper- and hypoglycemia. 7. Hyperlipidemia. 8. Acute kidney injury, probably acute tubular necrosis and prerenal component, worsening with contribution from hypotension and sepsis. 9. Acute lactic acidosis from sepsis. 10.Acute hypoxic respiratory failure from multiple causes. The patient did require ventilator support. 11.Status post debridement of the right big toe by Dr. White. 12.Status post bilateral thoracentesis. 13.Paroxysmal atrial fibrillation. 14.Normocytic anemia. Cause undetermined. Copy to Dr. Collins. MMODL / IJN: [id number] /
--- NOTE | 2018-02-06 14:29 | DS ---
DISCHARGE SUMMARY ADDENDUM: DATE OF ADMISSION: 02/01/2018. DATE PATIENT : 02/03/2018. MMODL / IJN: [id number] /
--- NOTE | 2018-02-07 12:25 | CDI ---
Last Revision, April 2017 Documentation Clarification Form Date: 02/07/18 From: Emily Jose Luis Rachel Banks, Senior Outside Sales Representative Hours-8:30 am & 5 pm Oksana Admit Date: 01/22/2018 6:57:00 PM Patient Name: Nuno Clarke Visit Number: [id number] Discharge Date: 02/03/18 ATTENTION: The Clinical Documentation Specialists (CDI) and [facility] Coding Staff appreciate your assistance in clarifying documentation. Please respond to the clarification below the line at the bottom and electronically sign. The CDI & [facility] Coding staff will review the response and follow-up if needed. Please note: Queries are made part of the Legal Health Record. If you have any questions, please contact the author of this message via ITS. Geovanna Oneal MD History/Risk Factors: sepsis, septic shock, ATN, acute on chronic systolic CHF Clinical Indicators: Current BUN: 32, 34, 36, 50, 64, 77, 90, 92, 101, 108, 114, 117, 119, 125 Current CR: 2.00, 1.95, 1.92, 2.45, 2.80, 3.31, 3.50, 3.87, 3.95, 3.94, 4.21, 4.72, 4.80, 5.26 Current GFR: 29, 30, 31, 23, 19, 16, 15, 13, 13, 13, 12, 10, 10, 9 Treatment: Monitor renal function and urine output closely IVF In order to capture the severity of condition, please clarify if the condition signifies: CKD Stage 1 (GFR > 90) CKD Stage 2 (GFR 60-89) CKD Stage 3 (GFR 30-59) CKD Stage 4 (GFR 15-29) CKD Stage 5 (GFR <15) ESRD Other, please specify Unable to determine Please continue to document in your progress notes and discharge summary in order to capture severity of illness and risk of mortality. Include clinical findings that support your diagnosis. MTDD
== END 2018-02-03 20:02 | disposition expired | DRG 853 ==
LOC: EC 16:46 → 6ICU 18:57
PROVIDERS: ADMIT Hospitalist; ATTEND Hospitalist
PROC: 5A09557 Assistance with Respiratory Ventilation, Greater than 96 Consecutive Hours, Continuous Positive Airway Pressure (ICD-10-PCS; 2018-01-24)
PROC: 0JBQ0ZZ Excision of Right Foot Subcutaneous Tissue and Fascia, Open Approach (ICD-10-PCS; principal; 2018-01-25)
PROC: 0W993ZX Drainage of Right Pleural Cavity, Percutaneous Approach, Diagnostic (ICD-10-PCS; 2018-01-27)
PROC: 0W9B3ZZ Drainage of Left Pleural Cavity, Percutaneous Approach (ICD-10-PCS; 2018-01-29)
PROC: 0W993ZZ Drainage of Right Pleural Cavity, Percutaneous Approach (ICD-10-PCS; 2018-02-02)
PROC: 5A12012 Performance of Cardiac Output, Single, Manual (ICD-10-PCS; 2018-02-03)
PROC: 0BH17EZ Insertion of Endotracheal Airway into Trachea, Via Natural or Artificial Opening (ICD-10-PCS; 2018-02-03)
PROC: 5A1935Z Respiratory Ventilation, Less than 24 Consecutive Hours (ICD-10-PCS; 2018-02-03)
DX: A41.01 Sepsis due to Methicillin susceptible Staphylococcus aureus (principal); R65.21 Severe sepsis with septic shock; I21.A1 Myocardial infarction type 2; J18.9 Pneumonia, unspecified organism; N17.0 Acute kidney failure with tubular necrosis; J96.01 Acute respiratory failure with hypoxia; I50.23 Acute on chronic systolic (congestive) heart failure; E87.2 Acidosis; M86.171 Other acute osteomyelitis, right ankle and foot; N39.0 Urinary tract infection, site not specified; J44.0 Chronic obstructive pulmonary disease with (acute) lower respiratory infection; I13.0 Hypertensive heart and chronic kidney disease with heart failure and stage 1 through stage 4 chronic kidney disease, or unspecified chronic kidney disease; B37.0 Candidal stomatitis; M00.9 Pyogenic arthritis, unspecified; Z66 Do not resuscitate; I46.9 Cardiac arrest, cause unspecified; I49.01 Ventricular fibrillation; I48.0 Paroxysmal atrial fibrillation; E11.69 Type 2 diabetes mellitus with other specified complication; E11.621 Type 2 diabetes mellitus with foot ulcer; L97.519 Non-pressure chronic ulcer of other part of right foot with unspecified severity; E11.51 Type 2 diabetes mellitus with diabetic peripheral angiopathy without gangrene; E11.65 Type 2 diabetes mellitus with hyperglycemia; E11.22 Type 2 diabetes mellitus with diabetic chronic kidney disease; I25.5 Ischemic cardiomyopathy; E83.39 Other disorders of phosphorus metabolism; I44.7 Left bundle-branch block, unspecified; B96.20 Unspecified Escherichia coli [E. coli] as the cause of diseases classified elsewhere; K59.00 Constipation, unspecified; I25.10 Atherosclerotic heart disease of native coronary artery without angina pectoris; E78.5 Hyperlipidemia, unspecified; L08.9 Local infection of the skin and subcutaneous tissue, unspecified; D64.9 Anemia, unspecified; M19.91 Primary osteoarthritis, unspecified site; Z79.4 Long term (current) use of insulin; Z79.899 Other long term (current) drug therapy; Z87.891 Personal history of nicotine dependence; Z89.512 Acquired absence of left leg below knee
CPT/HCPCS: 36415; 36600; 71045; 71046; 71250; 76604; 76770; 80048; 80053; 80202; 81001; 82550; 82553; 82805; 82945; 83605; 83615; 83735; 83880; 84100; 84132; 84145; 84155; 84157; 84484; 85025; 85610; 85730; 87040; 87070; 87075; 87077; 87086; 87186; 87205; 88108; 88305; 88341; 88342; 89050; 92950; 93005; 93306; 94002; 94640; 94660; 96361; 96365; 96366; 96375; 99291